=== PATIENT | female | born 1935 | race African-American/Black ===

== ENCOUNTER 2017-03-16 17:15 | Inpatient (IN) | payer MEDICARE ==
[~2017-03-16] VITALS: Ht 162.6 cm; Wt 47.6 kg
[2017-03-16 17:10] VITALS: BP_SYST 140; BP_DIAS 52; BP_DIAS 82
[~2017-03-16 17:15] MED LIST: ACET-2853 PO; AMLO5TAB4 PO; ASPI-1159 PO; CLON0.1T14 PO; CLOP75TA2 PO; DEXT15SY3 PO; DOCU-138 PO; IPRA3AMP IH; MAGN30OR PO; MULT-44 PO; MV W1TAB4 PO; OMEG-13 PO; OMEP20CA4 PO; OMEP20TA15 PO; ONDA4TAB5 PO; TRAM50TA73 PO
[2017-03-16] MEDS ORDERED: IPRATROPIUM/ALBUTEROL 0.5-3(2.5)MG/3ML NEB HHN PRN (18:45)
[2017-03-16] MEDS ORDERED: CLONIDINE 0.2MG TABLET PO PRN (18:45)
[2017-03-16 20:00] VITALS: BP 136/45
[2017-03-16] MEDS ORDERED: CLONIDINE 0.1MG TABLET PO PRN (20:15)
[2017-03-16] MEDS ORDERED: POLYVINYL ALCOHOL OPHTH DROPS 15ML BOTHEYE PRN (20:30)
[2017-03-16] MEDS: AMLODIPINE 5MG TABLET PO SCH (20:34)
[2017-03-16] MEDS: ATORVASTATIN CALCIUM 10MG TABLET PO SCH (20:34)
[2017-03-16] MEDS: ACETAMINOPHEN 650MG/20.3ML UDC PO PRN (20:34)
[2017-03-16] MEDS: GABAPENTIN 100MG CAPSULE PO SCH (20:34)
[2017-03-16] MEDS: MORPHINE SULFATE 2 MG/ML CPJ (NOT FOR IM USE) IV PRN (20:35)
[2017-03-16] MEDS: METRONIDAZOLE 500MG TABLET PO SCH (21:44)
[2017-03-16] MEDS: MINERAL OIL/PETROLATUM,WHITE CREAM 113GM JAR TOP PRN (21:45)
[2017-03-17] MEDS: MORPHINE SULFATE 2 MG/ML CPJ (NOT FOR IM USE) IV PRN ×3 (00:58→20:09)
[2017-03-17] MEDS: METRONIDAZOLE 500MG TABLET PO SCH ×3 (05:24→21:25)
[2017-03-17] MEDS: ONDANSETRON HCL 4MG TABLET PO PRN (05:28)
[2017-03-17 07:20] LABS: HEMATOCRIT 27.5 % (36.0-48.0); HEMOGLOBIN 9.3 g/dL (12.0-16.0); MEAN CORPUSCULAR HEMOGLOBIN 29.9 pg (28.0-32.0); MEAN CORPUSCULAR VOLUME 88.4 fL (81.0-99.0); PLATELET 200 x1000/uL (130-400); RED BLOOD CELL COUNT 3.12 mill/uL (4.2-5.4); RED CELL DISTRIBUTION WIDTH 13.4 % (11.6-14.6)
[2017-03-17 07:22] LABS: CARBON DIOXIDE 27 mEq/L (21-32); CHLORIDE 110 mEq/L (98-107)
[2017-03-17 08:00] VITALS: BP 122/46
[2017-03-17] MEDS ORDERED: LOPERAMIDE HCL 2MG CAPSULE PO PRN (08:45)
[2017-03-17] MEDS: FAMOTIDINE 20MG TABLET PO SCH (09:35)
[2017-03-17] MEDS: GABAPENTIN 100MG CAPSULE PO SCH ×2 (09:35→20:09)
[2017-03-17] MEDS: CLOPIDOGREL 75MG TABLET PO SCH (09:35)
[2017-03-17] MEDS: FERROUS SULFATE 325MG TABLET PO SCH (09:36)
[2017-03-17] MEDS: ASPIRIN 81MG TABLET PO SCH (09:36)
[2017-03-17] MEDS: LOSARTAN POTASSIUM 50 MG TABLET PO SCH (09:36)
[2017-03-17] MEDS: ENOXAPARIN 30MG/0.3ML SYR SUBCUT SCH (09:37)
[2017-03-17] MEDS: AMLODIPINE 5MG TABLET PO SCH ×2 (09:54→20:09)
[2017-03-17] MEDS: LEVOFLOXACIN 250MG TABLET PO SCH (11:42)
[2017-03-17] MEDS: MINERAL OIL/PETROLATUM,WHITE CREAM 113GM JAR TOP PRN (11:57)
[2017-03-17] MEDS: LACTULOSE 20G/30ML UDC PO SCH ×2 (13:34→17:00)
[2017-03-17] MEDS: DOCUSATE SODIUM 100MG CAPSULE PO SCH (17:00)
[2017-03-17 20:00] VITALS: BP 156/61
[2017-03-17] MEDS: ATORVASTATIN CALCIUM 10MG TABLET PO SCH (20:09)
[2017-03-17] MEDS: POLYETHYLENE GLYCOL 3350 (17GM) 1 DOSE PACK PO SCH (20:09)
[2017-03-17] MEDS: KETOROLAC TROMETHAMINE 0.5% OPHTH 3ML BOTHEYE SCH (22:51)
[2017-03-18] MEDS: MORPHINE SULFATE 2 MG/ML CPJ (NOT FOR IM USE) IV PRN (00:51)
[2017-03-18 02:25] VITALS: BP 158/52
[2017-03-18] MEDS ORDERED: MORPHINE SULFATE 4 MG/ML CPJ (NOT FOR IM USE) IV NR (02:45)
[2017-03-18] MEDS ORDERED: GABAPENTIN 100MG CAPSULE PO NR (02:45)
[2017-03-18 03:00] VITALS: BP 148/52
[2017-03-18 05:20] VITALS: BP 112/35
[2017-03-18] MEDS: METRONIDAZOLE 500MG TABLET PO SCH ×3 (05:24→21:33)
[2017-03-18 06:14] LABS: BASOPHILS % 1.5 % (0.0-2.0); EOSINOPHILS % 2.9 % (0.0-5.0); HEMATOCRIT. 25.7 % (36.0-48.0); HEMOGLOBIN. 8.7 g/dL (12.0-16.0); LYMPHOCYTES % 25.6 % (20.0-50.0); MEAN CORPUSCULAR HEMOGLOBIN 29.6 pg (28.0-32.0); MEAN CORPUSCULAR VOLUME 87.8 fL (81.0-99.0); MEAN PLATELET VOLUME 7.8 fl (7.4-10.4); MONOCYTES % 10.7 % (2.0-8.0); NEUTROPHILS % 59.3 % (40.0-76.0); PLATELET 205 x1000/uL (130-400); RED BLOOD CELL COUNT 2.93 mill/uL (4.2-5.4); RED CELL DISTRIBUTION WIDTH 13.3 % (11.6-14.6)
[2017-03-18 06:15] LABS: CHLORIDE 109 mEq/L (98-107)
[2017-03-18 06:31] LABS: CARBON DIOXIDE 25 mEq/L (21-32)
[2017-03-18 08:00] VITALS: BP 117/42
[2017-03-18] MEDS: DOCUSATE SODIUM 100MG CAPSULE PO SCH ×2 (09:00→17:00)
[2017-03-18] MEDS: ASPIRIN 81MG TABLET PO SCH (10:33)
[2017-03-18] MEDS: TRAMADOL 50MG TABLET PO PRN ×2 (10:34→22:33)
[2017-03-18] MEDS: LOSARTAN POTASSIUM 50 MG TABLET PO SCH (10:34)
[2017-03-18] MEDS: AMLODIPINE 5MG TABLET PO SCH ×2 (10:35→21:33)
[2017-03-18] MEDS: FERROUS SULFATE 325MG TABLET PO SCH (10:35)
[2017-03-18] MEDS: LEVOFLOXACIN 250MG TABLET PO SCH (10:35)
[2017-03-18] MEDS: KETOROLAC TROMETHAMINE 0.5% OPHTH 3ML BOTHEYE SCH ×2 (10:35→17:31)
[2017-03-18] MEDS: CLOPIDOGREL 75MG TABLET PO SCH (10:35)
[2017-03-18] MEDS: GABAPENTIN 100MG CAPSULE PO SCH ×2 (10:35→21:32)
[2017-03-18] MEDS: FAMOTIDINE 20MG TABLET PO SCH (10:35)
[2017-03-18] MEDS: ENOXAPARIN 30MG/0.3ML SYR SUBCUT SCH (10:40)
[2017-03-18] MEDS: LIDOCAINE 5% PATCH TOP SCH (10:40)
[2017-03-18] MEDS ORDERED: POTASSIUM CHLORIDE 20MEQ TABLET SR PO NR ×2 (11:06→14:00)
[2017-03-18 13:08] LABS: CREATINE KINASE 39 IU/L (26-192)
[2017-03-18] MEDS: MINERAL OIL/PETROLATUM,WHITE CREAM 113GM JAR TOP PRN (14:41)
[2017-03-18 20:00] VITALS: BP 131/53
[2017-03-18] MEDS: POLYETHYLENE GLYCOL 3350 (17GM) 1 DOSE PACK PO SCH (21:00)
[2017-03-18] MEDS: ATORVASTATIN CALCIUM 10MG TABLET PO SCH (21:33)
[2017-03-19 02:24] LABS: CLARITY URINE CLOUDY (CLEAR); COLOR URINE YELLOW (YELLOW); GLUCOSE URINE NEGATIVE (NEGATIVE); KETONES URINE NEGATIVE (NEGATIVE); LEUKOCYTE ESTERASE URINE 3+ (NEGATIVE); NITRITE URINE NEGATIVE (NEGATIVE); OCCULT BLOOD URINE TRACE (NEGATIVE); PROTEIN URINE NEGATIVE (NEGATIVE); UROBILINOGEN URINE 0.2 E.U./dL (0.2-1.0)
[2017-03-19] MEDS: METRONIDAZOLE 500MG TABLET PO SCH ×3 (05:38→22:36)
[2017-03-19 06:44] LABS: BASOPHILS % 0.7 % (0.0-2.0); HEMATOCRIT. 26.3 % (36.0-48.0); HEMOGLOBIN. 8.8 g/dL (12.0-16.0); LYMPHOCYTES % 16.9 % (20.0-50.0); MEAN CORPUSCULAR HEMOGLOBIN 29.5 pg (28.0-32.0); MEAN CORPUSCULAR VOLUME 87.8 fL (81.0-99.0); MEAN PLATELET VOLUME 7.8 fl (7.4-10.4); MONOCYTES % 10.5 % (2.0-8.0); NEUTROPHILS % 70.9 % (40.0-76.0); PLATELET 229 x1000/uL (130-400); RED BLOOD CELL COUNT 2.99 mill/uL (4.2-5.4); RED CELL DISTRIBUTION WIDTH 13.5 % (11.6-14.6)
[2017-03-19 07:03] LABS: FERRITIN 284 ng/mL (10-291)
[2017-03-19 08:00] VITALS: BP 132/50
[2017-03-19 08:00] LABS: PHOSPHORUS 3.7 mg/dL (2.5-4.9)
[2017-03-19] MEDS: DOCUSATE SODIUM 100MG CAPSULE PO SCH ×2 (09:00→17:00)
[2017-03-19] MEDS: CLOPIDOGREL 75MG TABLET PO SCH (09:04)
[2017-03-19] MEDS: ASPIRIN 81MG TABLET PO SCH (09:04)
[2017-03-19] MEDS: GABAPENTIN 100MG CAPSULE PO SCH ×2 (09:04→22:34)
[2017-03-19] MEDS: FAMOTIDINE 20MG TABLET PO SCH (09:04)
[2017-03-19] MEDS: LOSARTAN POTASSIUM 50 MG TABLET PO SCH (09:04)
[2017-03-19] MEDS: ONDANSETRON HCL 4MG TABLET PO PRN (09:05)
[2017-03-19] MEDS: FERROUS SULFATE 325MG TABLET PO SCH (09:05)
[2017-03-19] MEDS: KETOROLAC TROMETHAMINE 0.5% OPHTH 3ML BOTHEYE SCH ×2 (09:05→17:54)
[2017-03-19] MEDS: ENOXAPARIN 30MG/0.3ML SYR SUBCUT SCH (09:05)
[2017-03-19] MEDS: AMLODIPINE 5MG TABLET PO SCH ×2 (09:05→21:00)
[2017-03-19] MEDS: LIDOCAINE 5% PATCH TOP SCH (09:09)
[2017-03-19] MEDS: LEVOFLOXACIN 250MG TABLET PO SCH (10:54)
[2017-03-19 12:37] LABS: FOLIC ACID (FOLATE) SERUM > 20.00 ng/mL (>5.38); VITAMIN B12 SERUM 1238 pg/mL (211-911)
[2017-03-19] MEDS: OXYCODONE HCL 5MG TABLET PO SCH (17:54)
[2017-03-19 20:00] VITALS: BP 132/151
[2017-03-19] MEDS: POLYETHYLENE GLYCOL 3350 (17GM) 1 DOSE PACK PO SCH (21:00)
[2017-03-19] MEDS: TRAMADOL 50MG TABLET PO PRN (21:12)
[2017-03-19] MEDS: ATORVASTATIN CALCIUM 10MG TABLET PO SCH (22:33)
[2017-03-20] MEDS: DIPHENHYDRAMINE 25MG CAPSULE PO PRN ×2 (01:37→22:34)
[2017-03-20] MEDS: METRONIDAZOLE 500MG TABLET PO SCH ×3 (05:54→21:07)
[2017-03-20 08:00] VITALS: BP 158/55
[2017-03-20] MEDS: DOCUSATE SODIUM 100MG CAPSULE PO SCH ×2 (09:00→16:57)
[2017-03-20] MEDS: ENOXAPARIN 30MG/0.3ML SYR SUBCUT SCH (09:29)
[2017-03-20] MEDS: KETOROLAC TROMETHAMINE 0.5% OPHTH 3ML BOTHEYE SCH ×2 (09:29→16:57)
[2017-03-20] MEDS: CLOPIDOGREL 75MG TABLET PO SCH (09:30)
[2017-03-20] MEDS: GABAPENTIN 100MG CAPSULE PO SCH ×2 (09:30→21:08)
[2017-03-20] MEDS: LIDOCAINE 5% PATCH TOP SCH (09:30)
[2017-03-20] MEDS: FERROUS SULFATE 325MG TABLET PO SCH (09:30)
[2017-03-20] MEDS: LOSARTAN POTASSIUM 50 MG TABLET PO SCH (09:30)
[2017-03-20] MEDS: AMLODIPINE 5MG TABLET PO SCH ×2 (09:31→21:08)
[2017-03-20] MEDS: FAMOTIDINE 20MG TABLET PO SCH (09:31)
[2017-03-20] MEDS: OXYCODONE HCL 5MG TABLET PO SCH ×3 (09:32→16:53)
[2017-03-20] MEDS: ASPIRIN 81MG TABLET PO SCH (09:32)
[2017-03-20] MEDS: LEVOFLOXACIN 250MG TABLET PO SCH (11:43)
[2017-03-20] MEDS: TRAMADOL 50MG TABLET PO PRN (14:41)
[2017-03-20 20:00] VITALS: BP 150/59
[2017-03-20] MEDS: POLYETHYLENE GLYCOL 3350 (17GM) 1 DOSE PACK PO SCH (21:00)
[2017-03-20] MEDS: ATORVASTATIN CALCIUM 10MG TABLET PO SCH (21:08)
[2017-03-21] MEDS: TRAMADOL 50MG TABLET PO PRN ×2 (01:23→22:38)
[2017-03-21] MEDS: METRONIDAZOLE 500MG TABLET PO SCH ×3 (05:50→21:15)
[2017-03-21 08:00] VITALS: BP 138/51
[2017-03-21] MEDS: DOCUSATE SODIUM 100MG CAPSULE PO SCH ×2 (09:00→16:57)
[2017-03-21] MEDS: ASPIRIN 81MG TABLET PO SCH (09:05)
[2017-03-21] MEDS: GABAPENTIN 100MG CAPSULE PO SCH ×2 (09:05→21:15)
[2017-03-21] MEDS: CLOPIDOGREL 75MG TABLET PO SCH (09:06)
[2017-03-21] MEDS: AMLODIPINE 5MG TABLET PO SCH ×2 (09:06→21:16)
[2017-03-21] MEDS: FERROUS SULFATE 325MG TABLET PO SCH (09:06)
[2017-03-21] MEDS: FAMOTIDINE 20MG TABLET PO SCH (09:06)
[2017-03-21] MEDS: OXYCODONE HCL 5MG TABLET PO SCH ×3 (09:06→16:57)
[2017-03-21] MEDS: LOSARTAN POTASSIUM 50 MG TABLET PO SCH (09:06)
[2017-03-21] MEDS: KETOROLAC TROMETHAMINE 0.5% OPHTH 3ML BOTHEYE SCH ×2 (09:07→17:02)
[2017-03-21] MEDS: ENOXAPARIN 30MG/0.3ML SYR SUBCUT SCH (09:07)
[2017-03-21] MEDS: LIDOCAINE 5% PATCH TOP SCH (09:07)
[2017-03-21] MEDS: ONDANSETRON HCL 4MG TABLET PO PRN (09:12)
[2017-03-21] MEDS: LEVOFLOXACIN 250MG TABLET PO SCH (10:38)
[2017-03-21 20:00] VITALS: BP 153/57
[2017-03-21] MEDS: POLYETHYLENE GLYCOL 3350 (17GM) 1 DOSE PACK PO SCH (21:00)
[2017-03-21] MEDS ORDERED: SULFAMETHOXAZOLE/TRIMETHOPRIM 800/160MG TABLET PO SCH (21:00)
[2017-03-21] MEDS: ATORVASTATIN CALCIUM 10MG TABLET PO SCH (21:15)
[2017-03-21] MEDS ORDERED: VANCOMYCIN 750 MG PREMIX 150 ML IV NR (22:00)
[2017-03-22 00:25] LABS: CLARITY URINE CLEAR (CLEAR); COLOR URINE YELLOW (YELLOW); GLUCOSE URINE NEGATIVE (NEGATIVE); KETONES URINE NEGATIVE (NEGATIVE); LEUKOCYTE ESTERASE URINE 1+ (NEGATIVE); NITRITE URINE NEGATIVE (NEGATIVE); OCCULT BLOOD URINE NEGATIVE (NEGATIVE); PROTEIN URINE NEGATIVE (NEGATIVE); UROBILINOGEN URINE 0.2 E.U./dL (0.2-1.0)
[2017-03-22] MEDS: ACETAMINOPHEN 650MG/20.3ML UDC PO PRN (06:41)
[2017-03-22 06:46] LABS: BASOPHILS % 1.2 % (0.0-2.0); EOSINOPHILS % 2.8 % (0.0-5.0); HEMATOCRIT. 27.1 % (36.0-48.0); LYMPHOCYTES % 25.7 % (20.0-50.0); MEAN CORPUSCULAR HEMOGLOBIN 29.1 pg (28.0-32.0); MEAN CORPUSCULAR VOLUME 88.2 fL (81.0-99.0); MEAN PLATELET VOLUME 7.4 fl (7.4-10.4); MONOCYTES % 9.5 % (2.0-8.0); NEUTROPHILS % 60.8 % (40.0-76.0); PLATELET 267 x1000/uL (130-400); RED BLOOD CELL COUNT 3.07 mill/uL (4.2-5.4); RED CELL DISTRIBUTION WIDTH 13.6 % (11.6-14.6)
[2017-03-22 07:01] LABS: CARBON DIOXIDE 27 mEq/L (21-32); CHLORIDE 108 mEq/L (98-107)
[2017-03-22 07:22] VITALS: BP 138/54
[2017-03-22] MEDS: ENOXAPARIN 30MG/0.3ML SYR SUBCUT SCH (08:11)
[2017-03-22] MEDS: KETOROLAC TROMETHAMINE 0.5% OPHTH 3ML BOTHEYE SCH ×2 (08:11→17:07)
[2017-03-22] MEDS: CLOPIDOGREL 75MG TABLET PO SCH (08:11)
[2017-03-22] MEDS: GABAPENTIN 100MG CAPSULE PO SCH ×2 (08:12→21:28)
[2017-03-22] MEDS: ASPIRIN 81MG TABLET PO SCH (08:12)
[2017-03-22] MEDS: DOCUSATE SODIUM 100MG CAPSULE PO SCH ×2 (08:12→17:07)
[2017-03-22] MEDS: FAMOTIDINE 20MG TABLET PO SCH (08:12)
[2017-03-22] MEDS: FERROUS SULFATE 325MG TABLET PO SCH (08:12)
[2017-03-22] MEDS: AMLODIPINE 5MG TABLET PO SCH ×2 (08:13→21:28)
[2017-03-22] MEDS: OXYCODONE HCL 5MG TABLET PO SCH ×3 (08:14→17:08)
[2017-03-22] MEDS: LIDOCAINE 5% PATCH TOP SCH (08:49)
[2017-03-22 10:40] VITALS: BP 126/54
[2017-03-22] MEDS: LEVOFLOXACIN 250MG TABLET PO SCH (10:43)
[2017-03-22] MEDS: LOSARTAN POTASSIUM 50 MG TABLET PO SCH (10:43)
[2017-03-22 12:15] VITALS: BP 114/54
[2017-03-22] MEDS: LACTULOSE 20G/30ML UDC PO SCH ×3 (13:08→21:00)
[2017-03-22 13:12] LABS: 25-HYDROXY VITAMIN D3 28 ng/mL (.)
[2017-03-22] MEDS: VANCOMYCIN 750 MG PREMIX 150 ML IV SCH (13:16)
[2017-03-22] MEDS ORDERED: VANCOMYCIN 500 MG PREMIX 100 ML IV SCH (16:00)
[2017-03-22 17:00] VITALS: BP 123/36
[2017-03-22] MEDS ORDERED: DOCUSATE SODIUM 100MG CAPSULE PO SCH (17:00)
[2017-03-22 19:00] VITALS: BP 126/44
[2017-03-22] MEDS: POLYETHYLENE GLYCOL 3350 (17GM) 1 DOSE PACK PO SCH ×2 (21:00)
[2017-03-22] MEDS: ATORVASTATIN CALCIUM 10MG TABLET PO SCH (21:28)
[2017-03-22] MEDS: DIPHENHYDRAMINE 25MG CAPSULE PO PRN (22:39)
[2017-03-23] MEDS: ACETAMINOPHEN 650MG/20.3ML UDC PO PRN (05:00)
[2017-03-23] MEDS: TRAMADOL 50MG TABLET PO PRN (06:20)
[2017-03-23 08:00] VITALS: BP 130/49
[2017-03-23] MEDS: VANCOMYCIN 750 MG PREMIX 150 ML IV SCH (09:01)
[2017-03-23] MEDS: LOSARTAN POTASSIUM 50 MG TABLET PO SCH (09:09)
[2017-03-23] MEDS: DOCUSATE SODIUM 100MG CAPSULE PO SCH ×2 (09:09→17:00)
[2017-03-23] MEDS: KETOROLAC TROMETHAMINE 0.5% OPHTH 3ML BOTHEYE SCH ×2 (09:09→17:55)
[2017-03-23] MEDS: CLOPIDOGREL 75MG TABLET PO SCH (09:09)
[2017-03-23] MEDS: ENOXAPARIN 30MG/0.3ML SYR SUBCUT SCH (09:09)
[2017-03-23] MEDS: AMLODIPINE 5MG TABLET PO SCH ×2 (09:10→22:05)
[2017-03-23] MEDS: OXYCODONE HCL 5MG TABLET PO SCH ×3 (09:10→17:58)
[2017-03-23] MEDS: FERROUS SULFATE 325MG TABLET PO SCH (09:10)
[2017-03-23] MEDS: FAMOTIDINE 20MG TABLET PO SCH (09:10)
[2017-03-23] MEDS: GABAPENTIN 100MG CAPSULE PO SCH ×2 (09:10→22:05)
[2017-03-23] MEDS: ASPIRIN 81MG TABLET PO SCH (09:10)
[2017-03-23] MEDS: LIDOCAINE 5% PATCH TOP SCH (09:11)
[2017-03-23 13:10] VITALS: BP 140/60
[2017-03-23] MEDS ORDERED: ERGOCALCIFEROL 50000UNITS CAPSULE PO SCH (16:00)
[2017-03-23 17:30] VITALS: BP 121/80
[2017-03-23 20:00] VITALS: BP 135/43
[2017-03-23] MEDS: POLYETHYLENE GLYCOL 3350 (17GM) 1 DOSE PACK PO SCH ×2 (21:00)
[2017-03-23] MEDS: ATORVASTATIN CALCIUM 10MG TABLET PO SCH (22:04)
[2017-03-24] MEDS: ACETAMINOPHEN 650MG/20.3ML UDC PO PRN (02:05)
[2017-03-24] MEDS: VANCOMYCIN 750 MG PREMIX 150 ML IV SCH ×2 (02:05→20:49)
[2017-03-24 06:43] LABS: BASOPHILS % 1.2 % (0.0-2.0); EOSINOPHILS % 3.6 % (0.0-5.0); HEMOGLOBIN. 8.7 g/dL (12.0-16.0); LYMPHOCYTES % 27.6 % (20.0-50.0); MEAN CORPUSCULAR HEMOGLOBIN 29.5 pg (28.0-32.0); MEAN CORPUSCULAR VOLUME 88.1 fL (81.0-99.0); MEAN PLATELET VOLUME 7.6 fl (7.4-10.4); MONOCYTES % 10.1 % (2.0-8.0); NEUTROPHILS % 57.5 % (40.0-76.0); PLATELET 267 x1000/uL (130-400); RED BLOOD CELL COUNT 2.95 mill/uL (4.2-5.4); RED CELL DISTRIBUTION WIDTH 13.8 % (11.6-14.6)
[2017-03-24 08:00] VITALS: BP 151/57
[2017-03-24] MEDS: ASPIRIN 81MG TABLET PO SCH (08:06)
[2017-03-24] MEDS: OXYCODONE HCL 5MG TABLET PO SCH ×3 (08:08→15:53)
[2017-03-24] MEDS: GABAPENTIN 100MG CAPSULE PO SCH ×2 (08:08→20:55)
[2017-03-24] MEDS: FAMOTIDINE 20MG TABLET PO SCH (08:08)
[2017-03-24] MEDS: AMLODIPINE 5MG TABLET PO SCH ×2 (08:09→20:56)
[2017-03-24] MEDS: DOCUSATE SODIUM 100MG CAPSULE PO SCH ×2 (08:09→15:52)
[2017-03-24] MEDS: FERROUS SULFATE 325MG TABLET PO SCH (08:09)
[2017-03-24] MEDS: LACTOBACILLUS GG CAPSULE PO SCH (08:10)
[2017-03-24] MEDS: CLOPIDOGREL 75MG TABLET PO SCH (08:10)
[2017-03-24] MEDS: LOSARTAN POTASSIUM 50 MG TABLET PO SCH (08:10)
[2017-03-24] MEDS: ENOXAPARIN 30MG/0.3ML SYR SUBCUT SCH (08:17)
[2017-03-24] MEDS: LIDOCAINE 5% PATCH TOP SCH (08:17)
[2017-03-24] MEDS: KETOROLAC TROMETHAMINE 0.5% OPHTH 3ML BOTHEYE SCH ×2 (08:17→15:53)
[2017-03-24] MEDS: MINERAL OIL/PETROLATUM,WHITE CREAM 113GM JAR TOP PRN (10:30)
[2017-03-24 20:00] VITALS: BP 140/57
[2017-03-24] MEDS: ATORVASTATIN CALCIUM 10MG TABLET PO SCH (20:55)
[2017-03-24] MEDS: POLYETHYLENE GLYCOL 3350 (17GM) 1 DOSE PACK PO SCH ×2 (20:58)
[2017-03-24] MEDS: DIPHENHYDRAMINE 25MG CAPSULE PO PRN (22:39)
[2017-03-25 08:00] VITALS: BP 141/62
[2017-03-25] MEDS: FERROUS SULFATE 325MG TABLET PO SCH (08:37)
[2017-03-25] MEDS: GABAPENTIN 100MG CAPSULE PO SCH ×2 (08:37→21:27)
[2017-03-25] MEDS: AMLODIPINE 5MG TABLET PO SCH ×2 (08:38→21:29)
[2017-03-25] MEDS: ONDANSETRON HCL 4MG TABLET PO PRN (08:38)
[2017-03-25] MEDS: ASPIRIN 81MG TABLET PO SCH (08:38)
[2017-03-25] MEDS: LACTOBACILLUS GG CAPSULE PO SCH (08:38)
[2017-03-25] MEDS: LOSARTAN POTASSIUM 50 MG TABLET PO SCH (08:38)
[2017-03-25] MEDS: CLOPIDOGREL 75MG TABLET PO SCH (08:38)
[2017-03-25] MEDS: FAMOTIDINE 20MG TABLET PO SCH (08:38)
[2017-03-25] MEDS: ENOXAPARIN 30MG/0.3ML SYR SUBCUT SCH (08:39)
[2017-03-25] MEDS: KETOROLAC TROMETHAMINE 0.5% OPHTH 3ML BOTHEYE SCH ×2 (08:40→16:49)
[2017-03-25] MEDS: DOCUSATE SODIUM 100MG CAPSULE PO SCH ×2 (08:42→16:49)
[2017-03-25] MEDS: LIDOCAINE 5% PATCH TOP SCH (08:43)
[2017-03-25 20:00] VITALS: BP 142/58
[2017-03-25] MEDS: POLYETHYLENE GLYCOL 3350 (17GM) 1 DOSE PACK PO SCH ×2 (21:00)
[2017-03-25] MEDS: ATORVASTATIN CALCIUM 10MG TABLET PO SCH (21:28)
[2017-03-25] MEDS: TRAMADOL 50MG TABLET PO PRN (22:22)
[2017-03-26 06:04] LABS: BASOPHILS % 1.3 % (0.0-2.0); EOSINOPHILS % 2.9 % (0.0-5.0); HEMATOCRIT. 26.1 % (36.0-48.0); HEMOGLOBIN. 8.7 g/dL (12.0-16.0); LYMPHOCYTES % 30.7 % (20.0-50.0); MEAN CORPUSCULAR HEMOGLOBIN 29.4 pg (28.0-32.0); MEAN CORPUSCULAR VOLUME 87.9 fL (81.0-99.0); MEAN PLATELET VOLUME 7.4 fl (7.4-10.4); MONOCYTES % 9.2 % (2.0-8.0); NEUTROPHILS % 55.9 % (40.0-76.0); PLATELET 269 x1000/uL (130-400); RED BLOOD CELL COUNT 2.97 mill/uL (4.2-5.4)
[2017-03-26 06:58] LABS: CARBON DIOXIDE 30 mEq/L (21-32); CHLORIDE 109 mEq/L (98-107)
[2017-03-26 08:00] VITALS: BP 126/61
[2017-03-26] MEDS: DOCUSATE SODIUM 100MG CAPSULE PO SCH ×2 (09:00→16:18)
[2017-03-26] MEDS: CLOPIDOGREL 75MG TABLET PO SCH (09:35)
[2017-03-26] MEDS: FERROUS SULFATE 325MG TABLET PO SCH (09:35)
[2017-03-26] MEDS: LOSARTAN POTASSIUM 50 MG TABLET PO SCH (09:35)
[2017-03-26] MEDS: FAMOTIDINE 20MG TABLET PO SCH (09:35)
[2017-03-26] MEDS: ASPIRIN 81MG TABLET PO SCH (09:35)
[2017-03-26] MEDS: GABAPENTIN 100MG CAPSULE PO SCH ×2 (09:35→21:22)
[2017-03-26] MEDS: AMLODIPINE 5MG TABLET PO SCH ×2 (09:36→21:23)
[2017-03-26] MEDS: LACTOBACILLUS GG CAPSULE PO SCH (09:36)
[2017-03-26] MEDS: ENOXAPARIN 30MG/0.3ML SYR SUBCUT SCH (09:36)
[2017-03-26] MEDS: LIDOCAINE 5% PATCH TOP SCH (09:37)
[2017-03-26] MEDS: KETOROLAC TROMETHAMINE 0.5% OPHTH 3ML BOTHEYE SCH ×2 (09:37→16:21)
[2017-03-26] MEDS: VITAMINS A AND D OINT TUBE TOP SCH ×2 (12:08→16:21)
[2017-03-26] MEDS: TRAMADOL 50MG TABLET PO PRN (16:29)
[2017-03-26 20:00] VITALS: BP 127/50
[2017-03-26] MEDS: POLYETHYLENE GLYCOL 3350 (17GM) 1 DOSE PACK PO SCH ×2 (21:00)
[2017-03-26] MEDS: ATORVASTATIN CALCIUM 10MG TABLET PO SCH (21:21)
[2017-03-26] MEDS: DIPHENHYDRAMINE 25MG CAPSULE PO PRN (23:29)
[2017-03-27] MEDS: TRAMADOL 50MG TABLET PO PRN (03:31)
[2017-03-27 07:59] VITALS: BP 120/45
[2017-03-27] MEDS: DOCUSATE SODIUM 100MG CAPSULE PO SCH (09:00)
[2017-03-27] MEDS: LACTOBACILLUS GG CAPSULE PO SCH (10:02)
[2017-03-27] MEDS: FERROUS SULFATE 325MG TABLET PO SCH (10:02)
[2017-03-27] MEDS: LOSARTAN POTASSIUM 50 MG TABLET PO SCH (10:02)
[2017-03-27] MEDS: ENOXAPARIN 30MG/0.3ML SYR SUBCUT SCH (10:03)
[2017-03-27] MEDS: ASPIRIN 81MG TABLET PO SCH (10:03)
[2017-03-27] MEDS: AMLODIPINE 5MG TABLET PO SCH (10:03)
[2017-03-27] MEDS: GABAPENTIN 100MG CAPSULE PO SCH (10:03)
[2017-03-27] MEDS: CLOPIDOGREL 75MG TABLET PO SCH (10:03)
[2017-03-27] MEDS: FAMOTIDINE 20MG TABLET PO SCH (10:03)
[2017-03-27] MEDS: VITAMINS A AND D OINT TUBE TOP SCH (10:04)
[2017-03-27] MEDS: LIDOCAINE 5% PATCH TOP SCH (10:04)
[2017-03-27] MEDS: KETOROLAC TROMETHAMINE 0.5% OPHTH 3ML BOTHEYE SCH (10:04)
[2017-03-27 14:28] VITALS: BP 120/45
== END 2017-03-27 16:35 | disposition home health service (06) | DRG 552 ==
LOC: UNDOADMIN 17:44
PROVIDERS: ADMIT Physical Medicine & Rehabilitation Spinal Cord Injury Medicine; ATTEND Specialist
PROC: 0HBRXZZ Excision of Toe Nail, External Approach (ICD-10-PCS; principal; 2017-03-26)
PROC: 0HBRXZZ Excision of Toe Nail, External Approach (ICD-10-PCS; 2017-03-26)
PROC: 0HBRXZZ Excision of Toe Nail, External Approach (ICD-10-PCS; 2017-03-26)
PROC: 0HBRXZZ Excision of Toe Nail, External Approach (ICD-10-PCS; 2017-03-26)
PROC: 0HBRXZZ Excision of Toe Nail, External Approach (ICD-10-PCS; 2017-03-26)
PROC: 0HBRXZZ Excision of Toe Nail, External Approach (ICD-10-PCS; 2017-03-26)
PROC: 0HBRXZZ Excision of Toe Nail, External Approach (ICD-10-PCS; 2017-03-26)
PROC: 0HBRXZZ Excision of Toe Nail, External Approach (ICD-10-PCS; 2017-03-26)
DX: M48.06 Spinal stenosis, lumbar region (principal); E44.0 Moderate protein-calorie malnutrition; I69.351 Hemiplegia and hemiparesis following cerebral infarction affecting right dominant side; N13.30 Unspecified hydronephrosis; G62.9 Polyneuropathy, unspecified; M48.02 Spinal stenosis, cervical region; Z68.1 Body mass index [BMI] 19.9 or less, adult; N39.0 Urinary tract infection, site not specified; J44.9 Chronic obstructive pulmonary disease, unspecified; N32.89 Other specified disorders of bladder; M16.0 Bilateral primary osteoarthritis of hip; K52.9 Noninfective gastroenteritis and colitis, unspecified; I25.10 Atherosclerotic heart disease of native coronary artery without angina pectoris; R26.89 Other abnormalities of gait and mobility; I10 Essential (primary) hypertension; E78.5 Hyperlipidemia, unspecified; D12.2 Benign neoplasm of ascending colon; F41.9 Anxiety disorder, unspecified; M19.012 Primary osteoarthritis, left shoulder; M75.102 Unspecified rotator cuff tear or rupture of left shoulder, not specified as traumatic; M47.892 Other spondylosis, cervical region; M47.896 Other spondylosis, lumbar region; L60.3 Nail dystrophy; L60.0 Ingrowing nail; I08.0 Rheumatic disorders of both mitral and aortic valves; E78.00 Pure hypercholesterolemia, unspecified; E55.9 Vitamin D deficiency, unspecified; D63.8 Anemia in other chronic diseases classified elsewhere; B95.62 Methicillin resistant Staphylococcus aureus infection as the cause of diseases classified elsewhere; B35.3 Tinea pedis; K63.89 Other specified diseases of intestine; L57.0 Actinic keratosis; Z88.2 Allergy status to sulfonamides; Z95.5 Presence of coronary angioplasty implant and graft; Z79.899 Other long term (current) drug therapy
CPT/HCPCS: 36415; 70551; 73221; 80048; 80053; 80061; 81001; 82270; 82306; 82550; 82607; 82728; 82746; 83036; 83540; 83550; 83735; 84100; 84134; 84443; 84630; 85025; 85027; 87040; 87077; 87086; 92523; 93970; 97110; 97112; 97116; 97140; 97162; 97167; 97530; 97532; 97535; A6261; J1650; J2270; J3370; J7040; J7050; Q0162; Q0163

== ENCOUNTER 2017-04-01 07:20 | Emergency (ER) | payer MEDICARE ==
[~2017-04-01] VITALS: Ht 162.6 cm; Wt 59.0 kg
[~2017-04-01 07:20] MED LIST changes: -ACET-2853 PO; -CLON0.1T14 PO; +CLOP75TA16 PO; -CLOP75TA2 PO; -DEXT15SY3 PO; -IPRA3AMP IH; -MAGN30OR PO; -OMEP20CA4 PO; -OMEP20TA15 PO; -ONDA4TAB5 PO
[2017-04-01] MEDS ORDERED: SODIUM CHLORIDE 0.9% 500 ML IV ONE (08:56)
[2017-04-01] MEDS ORDERED: ONDANSETRON HCL 4MG/2ML VIAL IV STA (08:56)
[2017-04-01] MEDS ORDERED: MORPHINE SULFATE 4 MG/ML CPJ (NOT FOR IM USE) IV STA (08:56)
[2017-04-01 09:34] LABS: BASOPHILS % 1.2 % (0.0-2.0); EOSINOPHILS % 2.4 % (0.0-5.0); HEMATOCRIT. 28.5 % (36.0-48.0); HEMOGLOBIN. 9.5 g/dL (12.0-16.0); LYMPHOCYTES % 25.5 % (20.0-50.0); MEAN CORPUSCULAR HEMOGLOBIN 29.2 pg (28.0-32.0); MEAN PLATELET VOLUME 7.2 fl (7.4-10.4); MONOCYTES % 10.6 % (2.0-8.0); NEUTROPHILS % 60.3 % (40.0-76.0); PLATELET 268 x1000/uL (130-400); RED BLOOD CELL COUNT 3.23 mill/uL (4.2-5.4)
[2017-04-01 09:38] LABS: INR 1.1; PROTHROMBIN TIME 11.4 sec (9.4-11.6)
[2017-04-01 09:45] LABS: CARBON DIOXIDE 30 mEq/L (21-32); CHLORIDE 107 mEq/L (98-107)
[2017-04-01 10:09] LABS: CLARITY URINE CLEAR (CLEAR); COLOR URINE YELLOW (YELLOW); GLUCOSE URINE NEGATIVE (NEGATIVE); KETONES URINE NEGATIVE (NEGATIVE); LEUKOCYTE ESTERASE URINE 1+ (NEGATIVE); NITRITE URINE NEGATIVE (NEGATIVE); OCCULT BLOOD URINE NEGATIVE (NEGATIVE); PH URINE 5.5 (4.5-8.0); PROTEIN URINE NEGATIVE (NEGATIVE); SPECIFIC GRAVITY URINE 1.005 (1.005-1.030); UROBILINOGEN URINE 0.2 E.U./dL (0.2-1.0)
[2017-04-01] MEDS ORDERED: CEPHALEXIN 500MG CAPSULE PO ONE (12:45)
[2017-04-01] MEDS ORDERED: IOHEXOL-300 100 ML BOTTLE ONE (14:24)
[2017-04-01] MEDS ORDERED: SODIUM CHLORIDE 0.9% 10ML VIAL ONE (14:24)
[2017-04-01 15:02] VITALS: BP 129/65
[2017-04-05] MEDS ORDERED: PNEUMOCOCCAL 23-VAL P-SAC VAC 0.5 ML IM ONE (06:00)
== END 2017-04-01 15:13 | disposition home or self-care (01) ==
LOC: ER 09:57
DX: N39.0 Urinary tract infection, site not specified (principal); D64.9 Anemia, unspecified; I10 Essential (primary) hypertension; E78.00 Pure hypercholesterolemia, unspecified; Z79.82 Long term (current) use of aspirin; Z88.2 Allergy status to sulfonamides; Z90.49 Acquired absence of other specified parts of digestive tract; Z95.820 Peripheral vascular angioplasty status with implants and grafts
CPT/HCPCS: 36415; 74177; 80053; 81001; 83690; 85025; 85610; 96361; 96374; 96375; 99285; A4216; J2270; J2405; J7040; Q9967; J7030

== ENCOUNTER 2017-07-18 09:24 | Emergency (ER) | payer MEDICARE ==
[~2017-07-18] VITALS: Ht 162.6 cm; Wt 70.0 kg
[~2017-07-18 09:24] MED LIST changes: -TRAM50TA73 PO; +TRAM50TA94 PO
[2017-07-18] MEDS ORDERED: MAGNESIUM/ALUMINUM HYDROXIDE/SIMETHICONE 30ML UDC PO STA (10:12)
[2017-07-18] MEDS ORDERED: ONDANSETRON HCL 4MG/2ML VIAL IV STA (10:12)
[2017-07-18] MEDS ORDERED: SODIUM CHLORIDE 0.9% 1,000 ML IV ONE (10:12)
[2017-07-18] MEDS ORDERED: FAMOTIDINE 20MG/2ML VIAL IV STA (10:12)
[2017-07-18 10:37] LABS: BASOPHILS % 0.8 % (0.0-2.0); EOSINOPHILS % 1.1 % (0.0-5.0); HEMATOCRIT. 31.4 % (36.0-48.0); HEMOGLOBIN. 10.4 g/dL (12.0-16.0); LYMPHOCYTES % 25.3 % (20.0-50.0); MEAN CORPUSCULAR HEMOGLOBIN 29.5 pg (28.0-32.0); MEAN CORPUSCULAR VOLUME 88.8 fL (81.0-99.0); MEAN PLATELET VOLUME 7.2 fl (7.4-10.4); MONOCYTES % 8.8 % (2.0-8.0); PLATELET 248 x1000/uL (130-400); RED BLOOD CELL COUNT 3.54 mill/uL (4.2-5.4); RED CELL DISTRIBUTION WIDTH 13.3 % (11.6-14.6)
[2017-07-18 10:44] LABS: INR 1.2; PROTHROMBIN TIME 12.3 sec (9.4-11.6)
[2017-07-18 10:55] LABS: CARBON DIOXIDE 30 mEq/L (21-32); CHLORIDE 105 mEq/L (98-107); TROPONIN I < 0.02 ng/mL (0.00-0.04)
[2017-07-18] MEDS ORDERED: MORPHINE SULFATE 4 MG/ML CPJ (NOT FOR IM USE) IV ONE (11:45)
[2017-07-18 11:54] LABS: CLARITY URINE CLEAR (CLEAR); COLOR URINE YELLOW (YELLOW); KETONES URINE NEGATIVE (NEGATIVE); LEUKOCYTE ESTERASE URINE 1+ (NEGATIVE); NITRITE URINE NEGATIVE (NEGATIVE); OCCULT BLOOD URINE NEGATIVE (NEGATIVE); PROTEIN URINE NEGATIVE (NEGATIVE); SPECIFIC GRAVITY URINE 1.008 (1.005-1.030); UROBILINOGEN URINE 0.2 E.U./dL (0.2-1.0)
[2017-07-18] MEDS ORDERED: KETOROLAC 15MG/ML VIAL IV ONE (12:15)
[2017-07-18 12:22] VITALS: BP 183/70
== END 2017-07-18 13:45 | disposition home or self-care (01) ==
LOC: EDBEDREQ 10:21 → ER 10:35 → CANBEDREQ 14:54
DX: K29.70 Gastritis, unspecified, without bleeding (principal); N20.0 Calculus of kidney; N28.1 Cyst of kidney, acquired; I10 Essential (primary) hypertension; J44.9 Chronic obstructive pulmonary disease, unspecified; Z79.82 Long term (current) use of aspirin; Z90.49 Acquired absence of other specified parts of digestive tract; Z95.5 Presence of coronary angioplasty implant and graft; Z88.2 Allergy status to sulfonamides
CPT/HCPCS: 36415; 71010; 74176; 80053; 81001; 83605; 83690; 83880; 84484; 85025; 85610; 87040; 87086; 93005; 96361; 96374; 96375; 99285; J1885; J2270; J2405; J3490; J7030

== ENCOUNTER 2017-08-04 06:16 | Emergency (ER) | payer MEDICARE ==
[~2017-08-04] VITALS: Ht 162.6 cm; Wt 45.0 kg
[2017-08-04] MEDS ORDERED: HYDROCODONE/ACETAMINOPHEN 5/325MG TABLET PO ONE (08:15)
[2017-08-04 08:46] LABS: BASOPHILS % 1.2 % (0.0-2.0); EOSINOPHILS % 1.6 % (0.0-5.0); HEMATOCRIT. 28.4 % (36.0-48.0); HEMOGLOBIN. 9.4 g/dL (12.0-16.0); LYMPHOCYTES % 24.9 % (20.0-50.0); MEAN CORPUSCULAR HEMOGLOBIN 29.1 pg (28.0-32.0); MEAN CORPUSCULAR VOLUME 87.6 fL (81.0-99.0); MEAN PLATELET VOLUME 6.6 fl (7.4-10.4); MONOCYTES % 8.6 % (2.0-8.0); NEUTROPHILS % 63.7 % (40.0-76.0); PLATELET 213 x1000/uL (130-400); RED BLOOD CELL COUNT 3.25 mill/uL (4.2-5.4); RED CELL DISTRIBUTION WIDTH 14.1 % (11.6-14.6)
[2017-08-04 08:54] LABS: INR 1.1; PROTHROMBIN TIME 11.5 sec (9.4-11.6)
[2017-08-04 09:01] LABS: CARBON DIOXIDE 26 mEq/L (21-32); CHLORIDE 111 mEq/L (98-107)
[2017-08-04 09:35] LABS: CLARITY URINE CLOUDY (CLEAR); COLOR URINE YELLOW (YELLOW); KETONES URINE NEGATIVE (NEGATIVE); LEUKOCYTE ESTERASE URINE NEGATIVE (NEGATIVE); NITRITE URINE NEGATIVE (NEGATIVE); OCCULT BLOOD URINE NEGATIVE (NEGATIVE); PROTEIN URINE NEGATIVE (NEGATIVE); SPECIFIC GRAVITY URINE 1.005 (1.005-1.030); UROBILINOGEN URINE 0.2 E.U./dL (0.2-1.0)
[2017-08-04] MEDS ORDERED: KETOROLAC 60MG/2ML VIAL IM ONE (09:45)
[2017-08-04] MEDS ORDERED: VISCOUS LIDOCAINE 2% 15 ML UDC PO STA (09:59)
[2017-08-04] MEDS ORDERED: DICYCLOMINE 10 MG/5 ML ORAL SYR PO STA (09:59)
[2017-08-04] MEDS ORDERED: MAGNESIUM/ALUMINUM HYDROXIDE/SIMETHICONE 30ML UDC PO STA (09:59)
[2017-08-04 10:45] VITALS: BP 175/90
== END 2017-08-04 10:47 | disposition home or self-care (01) ==
LOC: ER 07:27
DX: D64.9 Anemia, unspecified (principal); R10.9 Unspecified abdominal pain; I10 Essential (primary) hypertension; I25.10 Atherosclerotic heart disease of native coronary artery without angina pectoris; Z87.442 Personal history of urinary calculi; Z79.82 Long term (current) use of aspirin; Z88.2 Allergy status to sulfonamides; Z90.49 Acquired absence of other specified parts of digestive tract
CPT/HCPCS: 36415; 80053; 81001; 83690; 85025; 85610; 96372; 99284; J1885

== ENCOUNTER 2017-10-06 08:14 | Emergency (ER) | payer MEDICARE ==
[~2017-10-06] VITALS: Ht 154.9 cm; Wt 48.0 kg
[2017-10-06] MEDS ORDERED: ONDANSETRON HCL 4MG/2ML VIAL IV STA (09:35)
[2017-10-06] MEDS ORDERED: MORPHINE SULFATE 4 MG/ML CPJ (NOT FOR IM USE) IV STA (09:35)
[2017-10-06 09:56] LABS: BASOPHILS % 0.9 % (0.0-2.0); EOSINOPHILS % 4.3 % (0.0-5.0); HEMATOCRIT. 29.5 % (36.0-48.0); HEMOGLOBIN. 9.9 g/dL (12.0-16.0); LYMPHOCYTES % 29.9 % (20.0-50.0); MEAN CORPUSCULAR HEMOGLOBIN 29.3 pg (28.0-32.0); MEAN CORPUSCULAR VOLUME 87.6 fL (81.0-99.0); MEAN PLATELET VOLUME 7.4 fl (7.4-10.4); MONOCYTES % 7.8 % (2.0-8.0); NEUTROPHILS % 57.1 % (40.0-76.0); PLATELET 232 x1000/uL (130-400); RED BLOOD CELL COUNT 3.37 mill/uL (4.2-5.4); RED CELL DISTRIBUTION WIDTH 14.4 % (11.6-14.6)
[2017-10-06 10:01] LABS: INR 1.1; PROTHROMBIN TIME 11.2 sec (9.4-11.6)
[2017-10-06 10:04] LABS: CHLORIDE 111 mEq/L (98-107)
[2017-10-06] MEDS ORDERED: TRAMADOL 50MG TABLET PO ONE (11:15)
[2017-10-06 11:33] LABS: CLARITY URINE CLEAR (CLEAR); COLOR URINE YELLOW (YELLOW); KETONES URINE NEGATIVE (NEGATIVE); LEUKOCYTE ESTERASE URINE 1+ (NEGATIVE); NITRITE URINE NEGATIVE (NEGATIVE); OCCULT BLOOD URINE NEGATIVE (NEGATIVE); PH URINE 6.5 (4.5-8.0); PROTEIN URINE NEGATIVE (NEGATIVE); SPECIFIC GRAVITY URINE 1.007 (1.005-1.030); UROBILINOGEN URINE 0.2 E.U./dL (0.2-1.0)
[2017-10-06] MEDS ORDERED: NITROFURANTOIN 100MG M/M CAPSULE PO ONE (12:00)
[2017-10-06 12:31] VITALS: BP 188/69
== END 2017-10-06 13:08 | disposition home or self-care (01) ==
LOC: ER 09:11
DX: N39.0 Urinary tract infection, site not specified (principal); D64.9 Anemia, unspecified; I25.10 Atherosclerotic heart disease of native coronary artery without angina pectoris; I10 Essential (primary) hypertension; Z88.2 Allergy status to sulfonamides; Z87.442 Personal history of urinary calculi; Z79.82 Long term (current) use of aspirin; Z79.01 Long term (current) use of anticoagulants
CPT/HCPCS: 36415; 76770; 80053; 81003; 83605; 83690; 85025; 85610; 87086; 93005; 96374; 96375; 99285; J2270; J2405

== ENCOUNTER 2018-05-30 16:16 | Inpatient (IN) | payer MEDICARE ==
[~2018-05-30] VITALS: Ht 160 cm; Wt 49.9 kg
[2018-05-30 18:30] LABS: BASOPHILS % 1.1 % (0.0-2.0); EOSINOPHILS % 0.7 % (0.0-5.0); HEMATOCRIT. 34.2 % (36.0-48.0); HEMOGLOBIN. 11.3 g/dL (12.0-16.0); LYMPHOCYTES % 15.9 % (20.0-50.0); MEAN CORPUSCULAR HEMOGLOBIN 29.3 pg (28.0-32.0); MEAN CORPUSCULAR VOLUME 88.6 fL (81.0-99.0); MEAN PLATELET VOLUME 7.3 fl (7.4-10.4); MONOCYTES % 7.3 % (2.0-8.0); PLATELET 252 x1000/uL (130-400); RED BLOOD CELL COUNT 3.87 mill/uL (4.2-5.4); RED CELL DISTRIBUTION WIDTH 13.9 % (11.6-14.6)
[2018-05-30 18:39] LABS: CHLORIDE 108 mEq/L (98-107)
[2018-05-30] MEDS ORDERED: MORPHINE SULFATE 4 MG/ML CPJ (NOT FOR IM USE) IV ONE (19:15)
[2018-05-30] MEDS ORDERED: ASPIRIN 325MG EC TABLET PO ONE (21:00)
[2018-05-30] MEDS ORDERED: MAGNESIUM/ALUMINUM HYDROXIDE/SIMETHICONE 30ML UDC PO PRN (21:30)
[2018-05-30] MEDS ORDERED: GUAIFENESIN 200MG/10ML SUGAR FREE UDC PO PRN (21:30)
[2018-05-30] MEDS ORDERED: ONDANSETRON HCL 4MG/2ML INJ IV PRN (21:30)
[2018-05-30] MEDS ORDERED: CLONIDINE 0.1MG TABLET PO PRN (21:30)
[2018-05-30] MEDS ORDERED: IPRATROPIUM/ALBUTEROL 0.5-3(2.5)MG/3ML NEB INH PRN (21:30)
[2018-05-30] MEDS ORDERED: DOCUSATE SODIUM 100MG CAPSULE PO PRN (21:30)
[2018-05-30] MEDS ORDERED: HYDROCODONE/ACETAMINOPHEN 5/325MG TABLET PO PRN (21:30)
[2018-05-30] MEDS ORDERED: ACETAMINOPHEN 325MG TABLET PO PRN (21:30)
[2018-05-30] MEDS: MORPHINE SULFATE 4 MG/ML CPJ (NOT FOR IM USE) IV PRN (22:28)
[2018-05-31] MEDS: MORPHINE SULFATE 4 MG/ML CPJ (NOT FOR IM USE) IV PRN ×4 (02:58→14:47)
[2018-05-31] MEDS: DEXT 5%/0.45% NACL 1000ML 1,000 ML IV SCH ×2 (05:31→22:54)
[2018-05-31 08:11] VITALS: BP 126/44
[2018-05-31] MEDS ORDERED: ENOXAPARIN 30MG/0.3ML SYR SUBCUT SCH (09:00)
[2018-05-31] MEDS: ASPIRIN 81MG EC TABLET PO SCH (10:12)
[2018-05-31] MEDS: AMLODIPINE 5MG TABLET PO SCH ×2 (10:12→22:51)
[2018-05-31 11:50] VITALS: BP 149/53
[2018-05-31 11:54] LABS: BASOPHILS % 1.3 % (0.0-2.0); EOSINOPHILS % 2.1 % (0.0-5.0); HEMATOCRIT. 31.3 % (36.0-48.0); HEMOGLOBIN. 10.3 g/dL (12.0-16.0); LYMPHOCYTES % 22.3 % (20.0-50.0); MEAN CORPUSCULAR HEMOGLOBIN 29.1 pg (28.0-32.0); MEAN CORPUSCULAR VOLUME 88.3 fL (81.0-99.0); MEAN PLATELET VOLUME 7.6 fl (7.4-10.4); MONOCYTES % 10.2 % (2.0-8.0); NEUTROPHILS % 64.1 % (40.0-76.0); PLATELET 241 x1000/uL (130-400); RED BLOOD CELL COUNT 3.54 mill/uL (4.2-5.4); RED CELL DISTRIBUTION WIDTH 13.8 % (11.6-14.6)
[2018-05-31 12:16] LABS: CHLORIDE 108 mEq/L (98-107)
[2018-05-31 12:27] LABS: CREATINE KINASE 116 IU/L (26-192)
[2018-05-31 12:28] LABS: HDL CHOLESTEROL 68 mg/dL (40-59); LDL CHOLESTEROL 141 mg/dL (5-100); PHOSPHORUS 2.5 mg/dL (2.5-4.9); T4 FREE 1.26 ng/dL (0.76-1.46)
[2018-05-31] MEDS: GABAPENTIN 100MG CAPSULE PO SCH ×3 (12:51→22:21)
[2018-05-31] MEDS: CLOPIDOGREL 75MG TABLET PO SCH (12:51)
[2018-05-31] MEDS: NITROGLYCERIN OINT 1GM/INCH UDPKT TD SCH ×2 (12:53→22:20)
[2018-05-31 15:49] VITALS: BP 98/75
[2018-05-31 16:11] LABS: CREATINE KINASE 122 IU/L (26-192)
[2018-05-31 20:14] VITALS: BP 140/51
[2018-05-31] MEDS: TRAMADOL 50MG TABLET PO PRN (22:21)
[2018-05-31] MEDS: ATORVASTATIN CALCIUM 10MG TABLET PO SCH (22:50)
[2018-05-31] MEDS: ZOLPIDEM TARTRATE 5MG TABLET PO PRN (22:51)
[2018-05-31 23:30] VITALS: BP 139/42
[2018-06-01] VITALS (13 sets, daily range): BP systolic 124–148; BP diastolic 53–76
[2018-06-01] MEDS: GABAPENTIN 100MG CAPSULE PO SCH ×3 (06:47→20:58)
[2018-06-01] MEDS: NITROGLYCERIN OINT 1GM/INCH UDPKT TD SCH ×3 (06:47→21:01)
[2018-06-01] MEDS: SODIUM CHLORIDE 0.45% 1,000 ML IV SCH ×2 (06:48→14:40)
[2018-06-01 07:40] LABS: BASOPHILS % 1.5 % (0.0-2.0); EOSINOPHILS % 5.5 % (0.0-5.0); HEMATOCRIT. 27.4 % (36.0-48.0); HEMOGLOBIN. 9.2 g/dL (12.0-16.0); LYMPHOCYTES % 29.4 % (20.0-50.0); MEAN CORPUSCULAR HEMOGLOBIN 29.7 pg (28.0-32.0); MEAN CORPUSCULAR VOLUME 88.6 fL (81.0-99.0); MEAN PLATELET VOLUME 7.7 fl (7.4-10.4); MONOCYTES % 12.6 % (2.0-8.0); PLATELET 197 x1000/uL (130-400); RED BLOOD CELL COUNT 3.09 mill/uL (4.2-5.4); RED CELL DISTRIBUTION WIDTH 13.9 % (11.6-14.6)
[2018-06-01] MEDS: ASPIRIN 81MG EC TABLET PO SCH (08:14)
[2018-06-01] MEDS: AMLODIPINE 5MG TABLET PO SCH ×2 (08:14→20:58)
[2018-06-01] MEDS: CLOPIDOGREL 75MG TABLET PO SCH (08:14)
[2018-06-01 08:21] LABS: CHLORIDE 108 mEq/L (98-107)
[2018-06-01 08:27] LABS: PHOSPHORUS 4.3 mg/dL (2.5-4.9)
[2018-06-01] MEDS ORDERED: LIDOCAINE HCL 1% 20ML VIAL (Pyxis) INJ ONE (10:38)
[2018-06-01] MEDS ORDERED: IODIXANOL 320MG/ML 100 ML BOTTLE IV ONE (10:38)
[2018-06-01] MEDS ORDERED: MIDAZOLAM HCL 2 MG/2 ML VIAL ONE (10:48)
[2018-06-01] MEDS ORDERED: FENTANYL CITRATE/PF 50MCG/ML 2ML VIAL ONE (10:48)
[2018-06-01] MEDS ORDERED: ONDANSETRON HCL 4MG/2ML INJ IV PRN (11:30)
[2018-06-01] MEDS ORDERED: ACETAMINOPHEN 325MG TABLET PO PRN (11:30)
[2018-06-01] MEDS ORDERED: ATROPINE SULFATE 1MG/10ML SYR IV PRN (11:30)
[2018-06-01] MEDS: TRAMADOL 50MG TABLET PO PRN ×2 (13:50→21:00)
[2018-06-01] MEDS ORDERED: HEPARIN SODIUM 1,000 UNIT/1ML VIAL IV ONE (14:17)
[2018-06-01] MEDS ORDERED: NITROGLYCERIN 50MCG/ML 10ML VIAL (CATH LAB) IV ONE (16:00)
[2018-06-01] MEDS ORDERED: NICARDIPINE 100MCG/ML 10ML VIAL (CATH LAB) IV ONE (16:00)
[2018-06-01] MEDS: ATORVASTATIN CALCIUM 10MG TABLET PO SCH (20:58)
[2018-06-01] MEDS: ZOLPIDEM TARTRATE 5MG TABLET PO PRN (20:58)
[2018-06-02] VITALS (12 sets, daily range): BP systolic 93–151; BP diastolic 46–64
[2018-06-02] MEDS: MORPHINE SULFATE 4 MG/ML CPJ (NOT FOR IM USE) IV PRN (00:29)
[2018-06-02] MEDS: GABAPENTIN 100MG CAPSULE PO SCH ×2 (06:16→16:53)
[2018-06-02] MEDS: NITROGLYCERIN OINT 1GM/INCH UDPKT TD SCH ×2 (06:16→16:53)
[2018-06-02 07:29] LABS: EOSINOPHILS % 4.6 % (0.0-5.0); HEMATOCRIT. 29.8 % (36.0-48.0); HEMOGLOBIN. 9.9 g/dL (12.0-16.0); LYMPHOCYTES % 23.8 % (20.0-50.0); MEAN CORPUSCULAR HEMOGLOBIN 29.6 pg (28.0-32.0); MEAN CORPUSCULAR VOLUME 89.4 fL (81.0-99.0); MEAN PLATELET VOLUME 7.8 fl (7.4-10.4); MONOCYTES % 10.9 % (2.0-8.0); NEUTROPHILS % 59.7 % (40.0-76.0); PLATELET 210 x1000/uL (130-400); RED BLOOD CELL COUNT 3.34 mill/uL (4.2-5.4); RED CELL DISTRIBUTION WIDTH 13.6 % (11.6-14.6)
[2018-06-02] MEDS: CLOPIDOGREL 75MG TABLET PO SCH (07:45)
[2018-06-02] MEDS: ASPIRIN 81MG EC TABLET PO SCH (07:46)
[2018-06-02] MEDS: AMLODIPINE 5MG TABLET PO SCH (07:46)
[2018-06-02] MEDS: SODIUM CHLORIDE 0.45% 1,000 ML IV SCH (07:47)
[2018-06-02 08:01] LABS: CHLORIDE 108 mEq/L (98-107)
[2018-06-02] MEDS: TRAMADOL 50MG TABLET PO PRN (09:57)
[2018-06-02 12:42] LABS: CLARITY URINE CLEAR (CLEAR); COLOR URINE YELLOW (YELLOW); KETONES URINE NEGATIVE (NEGATIVE); LEUKOCYTE ESTERASE URINE NEGATIVE (NEGATIVE); NITRITE URINE NEGATIVE (NEGATIVE); OCCULT BLOOD URINE NEGATIVE (NEGATIVE); PROTEIN URINE NEGATIVE (NEGATIVE); SPECIFIC GRAVITY URINE 1.002 (1.005-1.030); UROBILINOGEN URINE 0.2 E.U./dL (0.2-1.0)
== END 2018-06-02 18:11 | disposition home health service (06) | DRG 287 ==
LOC: ER 18:04 → 6WST 20:59 → EDBEDREQ 21:02 → EDBEDREQTM 21:02 → ENRESERV 05-31 02:29 → 3WST 06-01 11:58
PROVIDERS: ADMIT Family Medicine Adult Medicine; ATTEND Family Medicine Adult Medicine
PROC: 4A023N7 Measurement of Cardiac Sampling and Pressure, Left Heart, Percutaneous Approach (ICD-10-PCS; principal; 2018-06-01)
PROC: B2111ZZ Fluoroscopy of Multiple Coronary Arteries using Low Osmolar Contrast (ICD-10-PCS; 2018-06-01)
PROC: B2151ZZ Fluoroscopy of Left Heart using Low Osmolar Contrast (ICD-10-PCS; 2018-06-01)
DX: I16.9 Hypertensive crisis, unspecified (principal); N39.0 Urinary tract infection, site not specified; G62.9 Polyneuropathy, unspecified; D64.9 Anemia, unspecified; I49.3 Ventricular premature depolarization; K57.90 Diverticulosis of intestine, part unspecified, without perforation or abscess without bleeding; E78.00 Pure hypercholesterolemia, unspecified; E78.5 Hyperlipidemia, unspecified; F41.9 Anxiety disorder, unspecified; I11.9 Hypertensive heart disease without heart failure; M19.90 Unspecified osteoarthritis, unspecified site; Z82.49 Family history of ischemic heart disease and other diseases of the circulatory system; Z87.442 Personal history of urinary calculi; Z88.2 Allergy status to sulfonamides; Z95.5 Presence of coronary angioplasty implant and graft; Z79.82 Long term (current) use of aspirin; Z79.899 Other long term (current) drug therapy; Z90.49 Acquired absence of other specified parts of digestive tract
CPT/HCPCS: 36415; 71045; 80048; 80061; 82550; 83735; 83880; 84100; 84439; 84443; 84484; 85347; 93005; 93306; 93458; 93571; 93970; 99285; C1769; C1887; C1893; J1644; J1650; J2250; J2270; J3010; J3490; Q9967

== ENCOUNTER 2018-06-29 06:13 | Inpatient (IN) | payer MEDICARE ==
[~2018-06-29] VITALS: Ht 162.6 cm; Wt 49.0 kg
[~2018-06-29 06:13] MED LIST changes: -CLOP75TA16 PO
[2018-06-29] MEDS ORDERED: ASPIRIN 81MG TABLET PO ONE (07:00)
[2018-06-29 07:30] LABS: BASOPHILS % 2.2 % (0.0-2.0); EOSINOPHILS % 3.2 % (0.0-5.0); HEMOGLOBIN. 10.5 g/dL (12.0-16.0); LYMPHOCYTES % 27.8 % (20.0-50.0); MEAN CORPUSCULAR HEMOGLOBIN 29.5 pg (28.0-32.0); MEAN CORPUSCULAR VOLUME 87.3 fL (81.0-99.0); MEAN PLATELET VOLUME 7.3 fl (7.4-10.4); MONOCYTES % 11.9 % (2.0-8.0); NEUTROPHILS % 54.9 % (40.0-76.0); PLATELET 249 x1000/uL (130-400); RED BLOOD CELL COUNT 3.55 mill/uL (4.2-5.4); RED CELL DISTRIBUTION WIDTH 14.2 % (11.6-14.6)
[2018-06-29 07:33] LABS: CHLORIDE 107 mEq/L (98-107)
[2018-06-29] MEDS ORDERED: FENTANYL CITRATE/PF 50MCG/ML 2ML VIAL IV ONE (08:00)
[2018-06-29 10:20] LABS: CLARITY URINE CLEAR (CLEAR); COLOR URINE YELLOW (YELLOW); KETONES URINE NEGATIVE (NEGATIVE); LEUKOCYTE ESTERASE URINE 1+ (NEGATIVE); NITRITE URINE NEGATIVE (NEGATIVE); OCCULT BLOOD URINE NEGATIVE (NEGATIVE); PH URINE 7.5 (4.5-8.0); PROTEIN URINE 1+ (NEGATIVE); SPECIFIC GRAVITY URINE 1.003 (1.005-1.030); UROBILINOGEN URINE 0.2 E.U./dL (0.2-1.0)
[2018-06-29] MEDS: TRAMADOL 50MG TABLET PO PRN ×2 (14:23→20:23)
[2018-06-29 16:00] VITALS: BP 156/48
[2018-06-29] MEDS: ENOXAPARIN 40MG/0.4ML SYR SUBCUT SCH (18:11)
[2018-06-29] MEDS ORDERED: TRAMADOL HCL 50 MG PO PRN (19:30)
[2018-06-29] MEDS ORDERED: CLONIDINE 0.1MG TABLET PO PRN (19:30)
[2018-06-29] MEDS ORDERED: ONDANSETRON HCL 4MG/2ML INJ IV PRN (19:30)
[2018-06-29 20:00] VITALS: BP 148/51
[2018-06-29] MEDS: AMLODIPINE 5MG TABLET PO SCH (20:23)
[2018-06-29] MEDS: DOCUSATE SODIUM 100MG CAPSULE PO SCH (20:23)
[2018-06-29] MEDS ORDERED: ZOLP5TAB2 PO (20:58)
[2018-06-29] MEDS ORDERED: ZOLPIDEM TARTRATE 5MG TABLET PO PRN (21:00)
[2018-06-30] VITALS (7 sets, daily range): BP systolic 132–164; BP diastolic 49–57
[2018-06-30] MEDS: TRAMADOL 50MG TABLET PO PRN (01:44)
[2018-06-30 07:38] LABS: BASOPHILS % 1.9 % (0.0-2.0); EOSINOPHILS % 5.9 % (0.0-5.0); HEMATOCRIT. 28.8 % (36.0-48.0); HEMOGLOBIN. 9.5 g/dL (12.0-16.0); LYMPHOCYTES % 30.4 % (20.0-50.0); MEAN CORPUSCULAR HEMOGLOBIN 29.1 pg (28.0-32.0); MEAN CORPUSCULAR VOLUME 87.9 fL (81.0-99.0); MEAN PLATELET VOLUME 7.8 fl (7.4-10.4); MONOCYTES % 12.7 % (2.0-8.0); NEUTROPHILS % 49.1 % (40.0-76.0); PLATELET 242 x1000/uL (130-400); RED BLOOD CELL COUNT 3.28 mill/uL (4.2-5.4)
[2018-06-30 07:53] LABS: CHLORIDE 109 mEq/L (98-107)
[2018-06-30] MEDS ORDERED: MEDICATION NOT ON FORMULARY EA (Amlodipine Besylate (Norvasc) 5 MG) PO SCH (09:00)
[2018-06-30] MEDS ORDERED: ASPIRIN 81MG EC TABLET PO SCH (09:00)
[2018-06-30] MEDS: DOCUSATE SODIUM 100MG CAPSULE PO SCH ×2 (09:30→16:47)
[2018-06-30] MEDS: AMLODIPINE 5MG TABLET PO SCH (09:31)
[2018-06-30] MEDS ORDERED: HYDROCODONE/ACETAMINOPHEN 5/325MG TABLET PO NR (10:45)
[2018-06-30] MEDS: ENOXAPARIN 40MG/0.4ML SYR SUBCUT SCH (16:47)
== END 2018-06-30 19:00 | disposition home or self-care (01) | DRG 206 ==
LOC: ER 06:13 → 5WST 08:19 → EDBEDREQ 08:30 → ENRESERV 15:24
PROVIDERS: ADMIT Emergency Medicine; ATTEND Emergency Medicine
DX: M94.0 Chondrocostal junction syndrome [Tietze] (principal); Z68.1 Body mass index [BMI] 19.9 or less, adult; D72.819 Decreased white blood cell count, unspecified; G89.29 Other chronic pain; I11.9 Hypertensive heart disease without heart failure; I25.10 Atherosclerotic heart disease of native coronary artery without angina pectoris; J44.9 Chronic obstructive pulmonary disease, unspecified; R63.4 Abnormal weight loss; Z88.2 Allergy status to sulfonamides; Z79.899 Other long term (current) drug therapy; Z79.82 Long term (current) use of aspirin; Z95.5 Presence of coronary angioplasty implant and graft; Z90.49 Acquired absence of other specified parts of digestive tract; I25.2 Old myocardial infarction
CPT/HCPCS: 36415; 71045; 80048; 83880; 84484; 93005; 93970; 96374; 99285; J1650; J3010

== ENCOUNTER 2019-04-30 12:25 | Inpatient (IN) | payer MEDICARE ==
[~2019-04-30] VITALS: Ht 152.4 cm; Wt 46.3 kg
[~2019-04-30 12:25] MED LIST changes: -ASPI-1159 PO; +ASPI-1393 PO; +ZOLP5TAB2 PO
[2019-04-30] MEDS ORDERED: MORPHINE SULFATE 4 MG/ML CPJ (NOT FOR IM USE) IV ONE ×2 (14:00→15:45)
[2019-04-30 14:44] LABS: BASOPHILS % 0.9 % (0.0-2.0); EOSINOPHILS % 0.2 % (0.0-5.0); HEMATOCRIT. 33.9 % (36.0-48.0); HEMOGLOBIN. 11.4 g/dL (12.0-16.0); LYMPHOCYTES % 12.5 % (20.0-50.0); MEAN CORPUSCULAR HEMOGLOBIN 30.4 pg (28.0-32.0); MEAN CORPUSCULAR VOLUME 90.2 fL (81.0-99.0); MEAN PLATELET VOLUME 7.7 fl (7.4-10.4); MONOCYTES % 5.9 % (2.0-8.0); NEUTROPHILS % 80.5 % (40.0-76.0); PLATELET 254 x1000/uL (130-400); RED BLOOD CELL COUNT 3.76 mill/uL (4.2-5.4); RED CELL DISTRIBUTION WIDTH 13.6 % (11.6-14.6)
[2019-04-30 14:47] LABS: CHLORIDE 109 mEq/L (98-107)
[2019-04-30 14:50] LABS: PROTHROMBIN TIME 10.7 sec (9.6-11.0)
[2019-04-30 14:51] LABS: ETHANOL BLOOD < 10 mg/dL
[2019-04-30 14:54] LABS: LDL CHOLESTEROL 133 mg/dL (5-100)
[2019-04-30] MEDS ORDERED: SODIUM CHLORIDE 0.9% 1,000 ML IV ONE (15:44)
[2019-04-30] MEDS ORDERED: HYDRALAZINE 20MG/ML VIAL IV ONE (16:00)
[2019-04-30 16:08] LABS: CLARITY URINE CLEAR (CLEAR); COLOR URINE YELLOW (YELLOW); KETONES URINE TRACE (NEGATIVE); LEUKOCYTE ESTERASE URINE NEGATIVE (NEGATIVE); NITRITE URINE NEGATIVE (NEGATIVE); OCCULT BLOOD URINE NEGATIVE (NEGATIVE); PROTEIN URINE TRACE (NEGATIVE); SPECIFIC GRAVITY URINE 1.006 (1.005-1.030); UROBILINOGEN URINE 0.2 E.U./dL (0.2-1.0)
[2019-04-30] MEDS ORDERED: KETOROLAC 30MG/ML VIAL IM NR (18:45)
[2019-04-30] MEDS: TRAMADOL 50MG TABLET PO PRN (19:05)
[2019-04-30 21:30] VITALS: BP 177/60
[2019-04-30 21:50] VITALS: BP 181/58
[2019-04-30] MEDS ORDERED: CLONIDINE 0.1MG TABLET PO PRN (22:00)
[2019-04-30] MEDS: AMLODIPINE 5MG TABLET PO SCH (22:41)
[2019-04-30] MEDS: SODIUM CHLORIDE 0.9% INJ 3ML FLUSH IVF SCH (22:41)
[2019-04-30] MEDS: MORPHINE SULFATE 2 MG/ML CPJ (NOT FOR IM USE) IV PRN (22:43)
[2019-05-01] VITALS: BP 171/46
[2019-05-01] MEDS: ZOLPIDEM TARTRATE 5MG TABLET PO PRN ×2 (00:42→22:49)
[2019-05-01 04:00] VITALS: BP 125/53
[2019-05-01] MEDS: MORPHINE SULFATE 2 MG/ML CPJ (NOT FOR IM USE) IV PRN ×2 (04:02→20:55)
[2019-05-01] MEDS: SODIUM CHLORIDE 0.9% INJ 3ML FLUSH IVF SCH ×3 (05:28→21:37)
[2019-05-01 08:00] VITALS: BP 106/34
[2019-05-01] MEDS ORDERED: REGADENOSON 0.4 MG/5 ML IV ONE (08:15)
[2019-05-01] MEDS ORDERED: ENOXAPARIN 30MG/0.3ML SYR SUBCUT SCH (09:00)
[2019-05-01] MEDS: AMLODIPINE 5MG TABLET PO SCH ×2 (09:00→20:55)
[2019-05-01] MEDS: DEXT 5%/0.45% NACL 1000ML 1,000 ML IV SCH (09:02)
[2019-05-01] MEDS: ASPIRIN 81MG TABLET PO SCH (09:02)
[2019-05-01] MEDS: GABAPENTIN 100MG CAPSULE PO SCH ×2 (09:02→17:00)
[2019-05-01] MEDS: ENOXAPARIN 40MG/0.4ML SYR SUBCUT SCH (09:06)
[2019-05-01 12:00] VITALS: BP 112/38
[2019-05-01 16:00] VITALS: BP 124/43
[2019-05-01] MEDS: TRAMADOL 50MG TABLET PO PRN (17:48)
[2019-05-01 20:00] VITALS: BP 148/54
[2019-05-01] MEDS: SENNOSIDES/DOCUSATE SOD 8.6/50MG TABLET PO PRN (20:54)
[2019-05-02] VITALS: BP 149/81
[2019-05-02] MEDS: DEXT 5%/0.45% NACL 1000ML 1,000 ML IV SCH ×2 (02:30→19:35)
[2019-05-02 04:00] VITALS: BP 137/57
[2019-05-02] MEDS: MORPHINE SULFATE 2 MG/ML CPJ (NOT FOR IM USE) IV PRN ×4 (04:02→21:09)
[2019-05-02] MEDS: SODIUM CHLORIDE 0.9% INJ 3ML FLUSH IVF SCH ×3 (05:52→21:09)
[2019-05-02 09:02] LABS: BASOPHILS % 1.5 % (0.0-2.0); EOSINOPHILS % 4.5 % (0.0-5.0); HEMATOCRIT. 29.2 % (36.0-48.0); HEMOGLOBIN. 9.9 g/dL (12.0-16.0); LYMPHOCYTES % 30.5 % (20.0-50.0); MEAN CORPUSCULAR HEMOGLOBIN 30.4 pg (28.0-32.0); MEAN CORPUSCULAR VOLUME 89.9 fL (81.0-99.0); MEAN PLATELET VOLUME 7.6 fl (7.4-10.4); MONOCYTES % 11.7 % (2.0-8.0); NEUTROPHILS % 51.8 % (40.0-76.0); PLATELET 210 x1000/uL (130-400); RED BLOOD CELL COUNT 3.25 mill/uL (4.2-5.4); RED CELL DISTRIBUTION WIDTH 13.6 % (11.6-14.6)
[2019-05-02 09:10] LABS: CHLORIDE 111 mEq/L (98-107)
[2019-05-02] MEDS: ASPIRIN 81MG TABLET PO SCH (09:10)
[2019-05-02] MEDS: GABAPENTIN 100MG CAPSULE PO SCH ×2 (09:11→19:34)
[2019-05-02] MEDS: AMLODIPINE 5MG TABLET PO SCH ×2 (09:11→20:50)
[2019-05-02] MEDS: SENNOSIDES/DOCUSATE SOD 8.6/50MG TABLET PO PRN (09:11)
[2019-05-02] MEDS: ENOXAPARIN 40MG/0.4ML SYR SUBCUT SCH (09:12)
[2019-05-02 09:18] LABS: LDL CHOLESTEROL 115 mg/dL (5-100)
[2019-05-02 09:21] LABS: HDL CHOLESTEROL 60 mg/dL (40-59)
[2019-05-02] MEDS ORDERED: REGADENOSON 0.4 MG/5 ML IV ONE (10:34)
[2019-05-02 12:00] VITALS: BP 147/52
[2019-05-02 16:00] VITALS: BP 146/49
[2019-05-02 20:27] VITALS: BP 131/62
[2019-05-02] MEDS: ZOLPIDEM TARTRATE 5MG TABLET PO PRN (23:10)
[2019-05-03 00:38] VITALS: BP 126/46
[2019-05-03] MEDS: MORPHINE SULFATE 2 MG/ML CPJ (NOT FOR IM USE) IV PRN ×2 (04:20→08:18)
[2019-05-03 04:47] VITALS: BP 135/55
[2019-05-03] MEDS: SODIUM CHLORIDE 0.9% INJ 3ML FLUSH IVF SCH (05:48)
[2019-05-03] MEDS: ASPIRIN 81MG TABLET PO SCH (08:21)
[2019-05-03] MEDS: GABAPENTIN 100MG CAPSULE PO SCH (08:21)
[2019-05-03] MEDS: AMLODIPINE 5MG TABLET PO SCH (08:21)
[2019-05-03] MEDS ORDERED: ENOXAPARIN 30MG/0.3ML SYR SUBCUT SCH (09:00)
[2019-05-03 12:00] VITALS: BP 150/60
[2019-05-03 15:30] VITALS: BP 150/60
== END 2019-05-03 18:40 | disposition home or self-care (01) | DRG 206 ==
LOC: ER 12:25 → 6WST 16:00 → ENRESERV 20:20
PROVIDERS: ADMIT Specialist; ATTEND Specialist
DX: M94.0 Chondrocostal junction syndrome [Tietze] (principal); Z68.1 Body mass index [BMI] 19.9 or less, adult; E78.5 Hyperlipidemia, unspecified; E86.0 Dehydration; F41.9 Anxiety disorder, unspecified; I25.10 Atherosclerotic heart disease of native coronary artery without angina pectoris; E78.00 Pure hypercholesterolemia, unspecified; D64.9 Anemia, unspecified; F32.9 Major depressive disorder, single episode, unspecified; R63.4 Abnormal weight loss; R26.9 Unspecified abnormalities of gait and mobility; I11.9 Hypertensive heart disease without heart failure; I34.0 Nonrheumatic mitral (valve) insufficiency; J44.9 Chronic obstructive pulmonary disease, unspecified; Z79.82 Long term (current) use of aspirin; Z86.73 Personal history of transient ischemic attack (TIA), and cerebral infarction without residual deficits; Z95.5 Presence of coronary angioplasty implant and graft; Z88.2 Allergy status to sulfonamides; Z88.9 Allergy status to unspecified drugs, medicaments and biological substances; Z90.49 Acquired absence of other specified parts of digestive tract
CPT/HCPCS: 36415; 71045; 78452; 80048; 80061; 80320; 81003; 83721; 84484; 93005; 93017; 93306; 97162; 99285; A9500; C1893; J0360; J1650; J1885; J2270; J2785; J7030; G0480

== ENCOUNTER 2019-05-04 15:18 | Emergency (ER) | payer MEDICARE ==
[~2019-05-04] VITALS: Ht 162.6 cm; Wt 78.0 kg
[2019-05-04] MEDS ORDERED: MORPHINE SULFATE 4 MG/ML CPJ (NOT FOR IM USE) IV STA (16:31)
[2019-05-04] MEDS ORDERED: ONDANSETRON HCL 4MG/2ML INJ IV STA (16:31)
[2019-05-04] MEDS ORDERED: ASPIRIN 81MG TABLET PO ONE (16:45)
[2019-05-04 18:02] LABS: BASOPHILS % 1.2 % (0.0-2.0); EOSINOPHILS % 2.7 % (0.0-5.0); HEMATOCRIT. 31.1 % (36.0-48.0); HEMOGLOBIN. 10.3 g/dL (12.0-16.0); LYMPHOCYTES % 27.3 % (20.0-50.0); MEAN CORPUSCULAR HEMOGLOBIN 29.9 pg (28.0-32.0); MEAN PLATELET VOLUME 7.9 fl (7.4-10.4); NEUTROPHILS % 59.8 % (40.0-76.0); PLATELET 224 x1000/uL (130-400); RED BLOOD CELL COUNT 3.45 mill/uL (4.2-5.4); RED CELL DISTRIBUTION WIDTH 13.5 % (11.6-14.6)
[2019-05-04 18:03] LABS: CHLORIDE 109 mEq/L (98-107)
[2019-05-04 18:05] LABS: INR 1.1; PARTIAL THROMBOPLASTIN TIME 24.4 sec (23.4-31.0); PROTHROMBIN TIME 10.9 sec (9.6-11.0)
[2019-05-04 18:07] LABS: ETHANOL BLOOD < 10 mg/dL
[2019-05-04 19:08] LABS: CLARITY URINE CLEAR (CLEAR); COLOR URINE YELLOW (YELLOW); KETONES URINE NEGATIVE (NEGATIVE); LEUKOCYTE ESTERASE URINE NEGATIVE (NEGATIVE); NITRITE URINE NEGATIVE (NEGATIVE); OCCULT BLOOD URINE NEGATIVE (NEGATIVE); PH URINE 7.5 (4.5-8.0); PROTEIN URINE NEGATIVE (NEGATIVE); SPECIFIC GRAVITY URINE 1.003 (1.005-1.030); UROBILINOGEN URINE 0.2 E.U./dL (0.2-1.0)
[2019-05-04 19:22] LABS: OPIATES URINE SCREEN NEGATIVE (NEGATIVE)
[2019-05-04 19:23] LABS: *AMPHETAMINES SCREEN URINE NEGATIVE (NEGATIVE); *BARBITURATES SCREEN URINE NEGATIVE (NEGATIVE)
[2019-05-04 19:25] LABS: *BENZODIAZEPINES SCREEN URINE NEGATIVE (NEGATIVE); *COCAINE SCREEN URINE NEGATIVE (NEGATIVE); CANNABINOID URINE SCREEN NEGATIVE (NEGATIVE); METHADONE URINE SCREEN NEGATIVE (NEGATIVE); PHENCYCLIDINE URINE SCREEN NEGATIVE (NEGATIVE)
[2019-05-04] MEDS ORDERED: HYDROCODONE/ACETAMINOPHEN 5/325MG TABLET PO ONE (20:15)
[2019-05-04] MEDS ORDERED: TRAMADOL 50MG TABLET PO ONE (20:45)
[2019-05-04 21:00] VITALS: BP 152/79
== END 2019-05-04 21:15 | disposition home or self-care (01) ==
LOC: ER 15:18 → CANBEDREQ 20:14 → ER 21:15
DX: R07.89 Other chest pain (principal); I10 Essential (primary) hypertension; E11.9 Type 2 diabetes mellitus without complications; M79.605 Pain in left leg; M79.604 Pain in right leg
CPT/HCPCS: 36415; 71045; 80053; 80305; 80320; 81003; 83690; 83880; 84484; 85025; 85610; 85730; 93005; 93970; 96374; 96375; 99284; J2270; J2405; G0480

== ENCOUNTER 2019-08-30 16:21 | Inpatient (IN) | payer MEDICARE ==
[~2019-08-30] VITALS: Ht 162.6 cm; Wt 46.7 kg
[~2019-08-30 16:21] MED LIST changes: -ASPI-1393 PO; +ASPI-1497 PO
[2019-08-30] MEDS ORDERED: ONDANSETRON 4MG ODT PO STA (23:13)
[2019-08-30] MEDS ORDERED: MORPHINE SULFATE 2 MG/ML CPJ (NOT FOR IM USE) IV ONE (23:15)
[2019-08-31 01:32] LABS: BASOPHILS % 1.7 % (0.0-2.0); HEMATOCRIT. 34.8 % (36.0-48.0); HEMOGLOBIN. 11.5 g/dL (12.0-16.0); LYMPHOCYTES % 27.2 % (20.0-50.0); MEAN CORPUSCULAR HEMOGLOBIN 29.3 pg (28.0-32.0); MEAN CORPUSCULAR VOLUME 88.6 fL (81.0-99.0); MEAN PLATELET VOLUME 7.7 fl (7.4-10.4); MONOCYTES % 8.9 % (2.0-8.0); NEUTROPHILS % 56.2 % (40.0-76.0); PLATELET 214 x1000/uL (130-400); RED BLOOD CELL COUNT 3.93 mill/uL (4.2-5.4)
[2019-08-31 01:43] LABS: CHLORIDE 110 mEq/L (98-107)
[2019-08-31 01:46] LABS: PROTHROMBIN TIME 10.8 sec (9.6-11.0)
[2019-08-31] MEDS: TRAMADOL 50MG TABLET PO PRN ×3 (05:42→22:45)
[2019-08-31] MEDS ORDERED: MECLIZINE 25MG TABLET PO PRN (05:45)
[2019-08-31] MEDS ORDERED: ONDANSETRON HCL 4MG/2ML INJ IV PRN (12:45)
[2019-08-31] MEDS ORDERED: ACETAMINOPHEN 325MG TABLET PO PRN (12:45)
[2019-08-31] MEDS: SODIUM CHLORIDE 0.9% 1,000 ML IV SCH (15:54)
[2019-08-31] MEDS: MECLIZINE 25MG TABLET PO PRN (17:10)
[2019-08-31 20:45] VITALS: BP 158/54
[2019-08-31] MEDS ORDERED: PENT400T16 PO (22:38)
[2019-08-31] MEDS ORDERED: LORA-250 PO (22:39)
[2019-09-01] VITALS: BP 142/56
[2019-09-01 04:00] VITALS: BP 147/52
[2019-09-01] MEDS: SODIUM CHLORIDE 0.9% 1,000 ML IV SCH (04:17)
[2019-09-01] MEDS: TRAMADOL 50MG TABLET PO PRN ×4 (05:10→23:15)
[2019-09-01 06:16] LABS: BASOPHILS % 0.3 % (0.0-2.0); EOSINOPHILS % 12.1 % (0.0-5.0); HEMATOCRIT. 31.4 % (36.0-48.0); HEMOGLOBIN. 10.5 g/dL (12.0-16.0); LYMPHOCYTES % 31.7 % (20.0-50.0); MEAN CORPUSCULAR HEMOGLOBIN 30.1 pg (28.0-32.0); MEAN CORPUSCULAR VOLUME 89.7 fL (81.0-99.0); MONOCYTES % 9.9 % (2.0-8.0); PLATELET 196 x1000/uL (130-400); RED CELL DISTRIBUTION WIDTH 14.1 % (11.6-14.6)
[2019-09-01 06:43] LABS: CHLORIDE 109 mEq/L (98-107)
[2019-09-01 08:00] VITALS: BP 119/56
[2019-09-01] MEDS: HEPARIN 5000 UNITS/ML VIAL SUBCUT SCH ×2 (08:47→23:25)
[2019-09-01 12:00] VITALS: BP_SYST 139; BP_SYST 141; BP_SYST 155; BP_DIAS 50; BP_DIAS 52; BP_DIAS 57
[2019-09-01] MEDS ORDERED: LORAZEPAM 1MG TABLET PO PRN (13:45)
[2019-09-01] MEDS ORDERED: DOCUSATE SODIUM 100MG CAPSULE PO PRN (13:45)
[2019-09-01] MEDS: ASPIRIN 81MG EC TABLET PO SCH (14:58)
[2019-09-01] MEDS: PENTOXIFYLLINE 400MG TABLET PO SCH ×2 (14:59→23:25)
[2019-09-01] MEDS: MECLIZINE 25MG TABLET PO PRN (14:59)
[2019-09-01 16:00] VITALS: BP 158/58
[2019-09-01 20:00] VITALS: BP 168/54
[2019-09-02] VITALS: BP 134/45
[2019-09-02 04:00] VITALS: BP 129/49
[2019-09-02] MEDS: PENTOXIFYLLINE 400MG TABLET PO SCH ×2 (06:50→10:43)
[2019-09-02 08:57] VITALS: BP 135/62
[2019-09-02] MEDS: HEPARIN 5000 UNITS/ML VIAL SUBCUT SCH (10:42)
[2019-09-02] MEDS: ASPIRIN 81MG EC TABLET PO SCH (10:43)
[2019-09-02 12:00] VITALS: BP 135/56
[2019-09-02] MEDS ORDERED: CLONIDINE 0.3MG TABLET PO PRN (12:15)
[2019-09-02] MEDS: TRAMADOL 50MG TABLET PO PRN (13:12)
[2019-09-02 14:29] VITALS: BP 136/65
== END 2019-09-02 15:20 | disposition home or self-care (01) | DRG 312 ==
LOC: ER 16:36 → 7WST 08-31 03:12 → EDBEDREQ 08-31 03:20 → EDBEDREQTM 08-31 03:20 → EDBEDREQDT 08-31 03:20 → ENRESERV 08-31 19:05
PROVIDERS: ADMIT Specialist; ATTEND Specialist
DX: R55 Syncope and collapse (principal); H81.10 Benign paroxysmal vertigo, unspecified ear; D64.9 Anemia, unspecified; E78.00 Pure hypercholesterolemia, unspecified; F32.9 Major depressive disorder, single episode, unspecified; F41.9 Anxiety disorder, unspecified; I25.10 Atherosclerotic heart disease of native coronary artery without angina pectoris; J44.9 Chronic obstructive pulmonary disease, unspecified; I11.9 Hypertensive heart disease without heart failure; M19.90 Unspecified osteoarthritis, unspecified site; M48.02 Spinal stenosis, cervical region; M48.061 Spinal stenosis, lumbar region without neurogenic claudication; Z79.899 Other long term (current) drug therapy; Z86.73 Personal history of transient ischemic attack (TIA), and cerebral infarction without residual deficits; Z95.5 Presence of coronary angioplasty implant and graft; Z88.2 Allergy status to sulfonamides; Z79.82 Long term (current) use of aspirin
CPT/HCPCS: 36415; 70544; 70551; 71045; 72141; 80053; 82962; 83735; 84484; 85025; 93005; 93880; 96361; 96374; 97162; 97166; 99284; 99285; J1644; J2270; J8597; Q0162

== ENCOUNTER 2020-08-05 17:49 | Inpatient (IN) | payer MEDICARE ==
[~2020-08-05] VITALS: Ht 162.6 cm; Wt 50.0 kg
[~2020-08-05 17:49] MED LIST changes: +AMLO10TA80 PO; +ASPI-1406 PO; +CITA10TA16 PO; +DOCU-150 PO; +GABA-529 PO; +GABA-532 PO; +LORA-250 PO; +MOM PO; +PENT400T16 PO; +SENN-3 PO; +TETR15DR17 OP; +TRAM50TA3 MT; +TRAM50TA3 PO; -ZOLP5TAB2 PO
[2020-08-05 20:37] LABS: BASOPHILS % 1.1 % (0.0-2.0); EOSINOPHILS % 1.2 % (0.0-5.0); HEMATOCRIT. 32.4 % (36.0-48.0); HEMOGLOBIN. 10.8 g/dL (12.0-16.0); LYMPHOCYTES % 19.7 % (20.0-50.0); MEAN CORPUSCULAR HEMOGLOBIN 29.6 pg (28.0-32.0); MEAN CORPUSCULAR VOLUME 88.3 fL (81.0-99.0); MEAN PLATELET VOLUME 7.3 fl (7.4-10.4); MONOCYTES % 7.3 % (2.0-8.0); NEUTROPHILS % 70.7 % (40.0-76.0); PLATELET 300 x1000/uL (130-400); RED BLOOD CELL COUNT 3.66 mill/uL (4.2-5.4); RED CELL DISTRIBUTION WIDTH 13.4 % (11.6-14.6)
[2020-08-05 20:43] LABS: CHLORIDE 105 mEq/L (98-107)
[2020-08-05 20:53] LABS: INR 1.1; PROTHROMBIN TIME 11.3 sec (9.6-11.0)
[2020-08-05] MEDS ORDERED: SODIUM CHLORIDE 0.9% 250 ML IV ONE (21:00)
[2020-08-05] MEDS ORDERED: MORPHINE SULFATE 2 MG/ML CPJ (NOT FOR IM USE) IV NR (21:15)
[2020-08-05] MEDS ORDERED: ACETAMINOPHEN 325MG TABLET PO NR (21:15)
[2020-08-05] MEDS ORDERED: ASPIRIN 81MG TABLET PO ONE (21:45)
[2020-08-05] MEDS ORDERED: MORPHINE SULFATE 2 MG/ML CPJ (NOT FOR IM USE) IV ONE (22:30)
[2020-08-06 04:56] LABS: CLARITY URINE CLEAR (CLEAR); COLOR URINE YELLOW (YELLOW); KETONES URINE TRACE (NEGATIVE); LEUKOCYTE ESTERASE URINE NEGATIVE (NEGATIVE); NITRITE URINE NEGATIVE (NEGATIVE); OCCULT BLOOD URINE NEGATIVE (NEGATIVE); PH URINE 7.5 (4.5-8.0); PROTEIN URINE NEGATIVE (NEGATIVE); SPECIFIC GRAVITY URINE 1.007 (1.005-1.030); UROBILINOGEN URINE 0.2 E.U./dL (0.2-1.0)
[2020-08-06] MEDS ORDERED: TRAMADOL 50MG TABLET PO PRN ×2 (05:45→12:00)
[2020-08-06] MEDS: MORPHINE SULFATE 2 MG/ML CPJ (NOT FOR IM USE) IV PRN ×3 (05:54→23:30)
[2020-08-06] MEDS ORDERED: SENNOSIDES/DOCUSATE SOD 8.6/50MG TABLET PO PRN (12:00)
[2020-08-06] MEDS ORDERED: MAGNESIUM HYDROXIDE 400MG/5ML 30ML UDC PO PRN (12:00)
[2020-08-06] MEDS ORDERED: TRAZODONE HCL 50MG TABLET PO PRN (12:15)
[2020-08-06] MEDS ORDERED: ACETAMINOPHEN 325MG TABLET PO PRN (12:15)
[2020-08-06] MEDS ORDERED: ONDANSETRON HCL 4MG/2ML INJ IV PRN (12:15)
[2020-08-06] MEDS: AMLODIPINE 10MG TABLET PO SCH (13:35)
[2020-08-06] MEDS: ASPIRIN 81MG EC TABLET PO SCH (13:35)
[2020-08-06 15:55] LABS: BASOPHILS % 1.2 % (0.0-2.0); EOSINOPHILS % 4.3 % (0.0-5.0); HEMATOCRIT. 32.9 % (36.0-48.0); HEMOGLOBIN. 10.8 g/dL (12.0-16.0); LYMPHOCYTES % 27.8 % (20.0-50.0); MEAN CORPUSCULAR HEMOGLOBIN 29.5 pg (28.0-32.0); MEAN CORPUSCULAR VOLUME 89.9 fL (81.0-99.0); MEAN PLATELET VOLUME 7.3 fl (7.4-10.4); MONOCYTES % 10.5 % (2.0-8.0); NEUTROPHILS % 56.2 % (40.0-76.0); PLATELET 268 x1000/uL (130-400); RED BLOOD CELL COUNT 3.66 mill/uL (4.2-5.4); RED CELL DISTRIBUTION WIDTH 13.6 % (11.6-14.6)
[2020-08-06] MEDS: GABAPENTIN 100MG CAPSULE PO SCH ×2 (15:58→22:00)
[2020-08-06 16:03] LABS: CHLORIDE 107 mEq/L (98-107)
[2020-08-06] MEDS: POLYVINYL ALCOHOL OPHTH DROPS 15ML BOTHEYE SCH (18:00)
[2020-08-06] MEDS: ATORVASTATIN CALCIUM 10MG TABLET PO SCH (21:00)
[2020-08-06] MEDS: HEPARIN 5000 UNITS/ML VIAL SUBCUT SCH (21:00)
[2020-08-07] MEDS: ZOLPIDEM TARTRATE 5MG TABLET PO PRN ×2 (03:30→20:51)
[2020-08-07 06:12] LABS: BASOPHILS % 1.1 % (0.0-2.0); EOSINOPHILS % 8.1 % (0.0-5.0); HEMATOCRIT. 30.3 % (36.0-48.0); HEMOGLOBIN. 10.1 g/dL (12.0-16.0); LYMPHOCYTES % 26.4 % (20.0-50.0); MEAN CORPUSCULAR VOLUME 89.9 fL (81.0-99.0); MEAN PLATELET VOLUME 7.2 fl (7.4-10.4); MONOCYTES % 9.5 % (2.0-8.0); NEUTROPHILS % 54.9 % (40.0-76.0); PLATELET 245 x1000/uL (130-400); RED BLOOD CELL COUNT 3.37 mill/uL (4.2-5.4); RED CELL DISTRIBUTION WIDTH 13.6 % (11.6-14.6)
[2020-08-07 06:39] LABS: CHLORIDE 108 mEq/L (98-107)
[2020-08-07 06:49] LABS: LDL CHOLESTEROL 119 mg/dL (5-100)
[2020-08-07 06:50] LABS: HDL CHOLESTEROL 73 mg/dL (40-59)
[2020-08-07] MEDS: POLYVINYL ALCOHOL OPHTH DROPS 15ML BOTHEYE SCH ×4 (07:26→23:11)
[2020-08-07] MEDS: HEPARIN 5000 UNITS/ML VIAL SUBCUT SCH ×2 (09:00→20:50)
[2020-08-07] MEDS: ASPIRIN 81MG EC TABLET PO SCH (12:00)
[2020-08-07] MEDS: AMLODIPINE 10MG TABLET PO SCH (12:00)
[2020-08-07] MEDS: GABAPENTIN 100MG CAPSULE PO SCH ×3 (12:00→20:51)
[2020-08-07] MEDS: METOPROLOL TARTRATE 25MG TABLET PO SCH (12:00)
[2020-08-07] MEDS: MORPHINE SULFATE 2 MG/ML CPJ (NOT FOR IM USE) IV PRN ×3 (12:32→23:18)
[2020-08-07 16:00] VITALS: BP 152/52
[2020-08-07 16:56] VITALS: BP 147/54
[2020-08-07 18:00] VITALS: BP 129/46
[2020-08-07 20:00] VITALS: BP 111/68
[2020-08-07] MEDS: ATORVASTATIN CALCIUM 10MG TABLET PO SCH (20:51)
[2020-08-07 22:00] VITALS: BP 135/42
[2020-08-08] VITALS (13 sets, daily range): BP systolic 103–146; BP diastolic 32–60
[2020-08-08] MEDS: GABAPENTIN 100MG CAPSULE PO SCH ×3 (05:41→21:53)
[2020-08-08] MEDS: MORPHINE SULFATE 2 MG/ML CPJ (NOT FOR IM USE) IV PRN ×3 (05:44→20:18)
[2020-08-08] MEDS: POLYVINYL ALCOHOL OPHTH DROPS 15ML BOTHEYE SCH ×3 (05:45→17:45)
[2020-08-08 07:02] LABS: CHLORIDE 108 mEq/L (98-107)
[2020-08-08 07:04] LABS: BASOPHILS % 0.9 % (0.0-2.0); EOSINOPHILS % 8.7 % (0.0-5.0); HEMATOCRIT. 29.6 % (36.0-48.0); HEMOGLOBIN. 9.9 g/dL (12.0-16.0); LYMPHOCYTES % 35.1 % (20.0-50.0); MEAN PLATELET VOLUME 8.9 fl (7.4-10.4); MONOCYTES % 10.5 % (2.0-8.0); NEUTROPHILS % 44.8 % (40.0-76.0); PLATELET 195 x1000/uL (130-400); RED BLOOD CELL COUNT 3.29 mill/uL (4.2-5.4); RED CELL DISTRIBUTION WIDTH 13.4 % (11.6-14.6)
[2020-08-08] MEDS: AMLODIPINE 10MG TABLET PO SCH (07:45)
[2020-08-08] MEDS: METOPROLOL TARTRATE 25MG TABLET PO SCH (07:46)
[2020-08-08] MEDS: ASPIRIN 81MG EC TABLET PO SCH (07:46)
[2020-08-08] MEDS ORDERED: LIDOCAINE HCL 1% 20ML VIAL (Pyxis) INJ ONE (07:51)
[2020-08-08] MEDS ORDERED: IODIXANOL 320MG/ML 100 ML BOTTLE IV ONE (07:57)
[2020-08-08] MEDS ORDERED: IOHEXOL-300 100 ML BOTTLE ONE (07:57)
[2020-08-08] MEDS ORDERED: HEPARIN SODIUM 1,000 UNIT/1ML VIAL IV ONE (08:00)
[2020-08-08] MEDS ORDERED: NICARDIPINE 100MCG/ML 10ML VIAL (CATH LAB) IV ONE (08:00)
[2020-08-08] MEDS ORDERED: NITROGLYCERIN 50MCG/ML 10ML VIAL (CATH LAB) IV ONE (08:00)
[2020-08-08] MEDS ORDERED: PHENYLEPHRINE 100MCG/ML 10ML VIAL (CATH LAB) IV ONE (08:00)
[2020-08-08] MEDS: HEPARIN 5000 UNITS/ML VIAL SUBCUT SCH ×2 (09:00→20:17)
[2020-08-08] MEDS ORDERED: MIDAZOLAM HCL 2 MG/2 ML VIAL ONE (09:18)
[2020-08-08] MEDS ORDERED: FENTANYL CITRATE/PF 50MCG/ML 2ML VIAL ONE (09:18)
[2020-08-08] MEDS ORDERED: CLOPIDOGREL 75MG TABLET ONE (10:13)
[2020-08-08] MEDS ORDERED: ASPIRIN 325MG TABLET ONE (10:14)
[2020-08-08] MEDS ORDERED: ATROPINE SULFATE 1MG/10ML SYR IV PRN (10:30)
[2020-08-08] MEDS ORDERED: ONDANSETRON HCL 4MG/2ML INJ IV PRN (10:30)
[2020-08-08] MEDS ORDERED: ACETAMINOPHEN 325MG TABLET PO PRN (10:30)
[2020-08-08] MEDS: ATORVASTATIN CALCIUM 10MG TABLET PO SCH (20:17)
[2020-08-08] MEDS: ZOLPIDEM TARTRATE 5MG TABLET PO PRN (21:53)
[2020-08-09] VITALS (13 sets, daily range): BP systolic 121–155; BP diastolic 46–94
[2020-08-09] MEDS: MORPHINE SULFATE 2 MG/ML CPJ (NOT FOR IM USE) IV PRN ×4 (01:52→21:06)
[2020-08-09] MEDS: POLYVINYL ALCOHOL OPHTH DROPS 15ML BOTHEYE SCH ×5 (06:11→23:05)
[2020-08-09] MEDS: GABAPENTIN 100MG CAPSULE PO SCH (06:11)
[2020-08-09 08:09] LABS: BASOPHILS % 1.8 % (0.0-2.0); EOSINOPHILS % 9.5 % (0.0-5.0); HEMOGLOBIN. 9.9 g/dL (12.0-16.0); LYMPHOCYTES % 23.4 % (20.0-50.0); MEAN CORPUSCULAR HEMOGLOBIN 29.8 pg (28.0-32.0); MEAN CORPUSCULAR VOLUME 89.9 fL (81.0-99.0); NEUTROPHILS % 54.3 % (40.0-76.0); PLATELET 225 x1000/uL (130-400); RED BLOOD CELL COUNT 3.34 mill/uL (4.2-5.4); RED CELL DISTRIBUTION WIDTH 13.6 % (11.6-14.6)
[2020-08-09 08:54] LABS: CHLORIDE 108 mEq/L (98-107)
[2020-08-09] MEDS: ASPIRIN 325MG TABLET PO SCH (09:49)
[2020-08-09] MEDS: METOPROLOL TARTRATE 25MG TABLET PO SCH (09:50)
[2020-08-09] MEDS: AMLODIPINE 10MG TABLET PO SCH (09:50)
[2020-08-09] MEDS: CLOPIDOGREL 75MG TABLET PO SCH (09:50)
[2020-08-09] MEDS: HEPARIN 5000 UNITS/ML VIAL SUBCUT SCH ×2 (09:50→21:04)
[2020-08-09] MEDS ORDERED: ASPI-986 PO (10:35)
[2020-08-09] MEDS ORDERED: ATOR10TA PO (10:35)
[2020-08-09] MEDS ORDERED: METO25TA6 PO (10:35)
[2020-08-09] MEDS ORDERED: CLOP75TA15 PO (10:35)
[2020-08-09] MEDS ORDERED: HYDROCODONE/ACETAMINOPHEN 5/325MG TABLET PO PRN ×2 (13:00)
[2020-08-09] MEDS: GABAPENTIN 300MG CAPSULE PO SCH ×2 (15:01→21:03)
[2020-08-09 17:33] LABS: T4 FREE 1.21 ng/dL (0.76-1.46)
[2020-08-09 18:27] LABS: FOLIC ACID (FOLATE) SERUM 11.5 ng/mL (>5.38)
[2020-08-09] MEDS: DOCUSATE SODIUM 100MG CAPSULE PO PRN (21:03)
[2020-08-09] MEDS: ATORVASTATIN CALCIUM 10MG TABLET PO SCH (21:03)
[2020-08-09] MEDS: ZOLPIDEM TARTRATE 5MG TABLET PO PRN (23:05)
[2020-08-10] VITALS (9 sets, daily range): BP systolic 113–151; BP diastolic 40–116
[2020-08-10] MEDS: MORPHINE SULFATE 2 MG/ML CPJ (NOT FOR IM USE) IV PRN ×4 (04:22→21:52)
[2020-08-10] MEDS: GABAPENTIN 300MG CAPSULE PO SCH ×3 (05:51→21:51)
[2020-08-10] MEDS: POLYVINYL ALCOHOL OPHTH DROPS 15ML BOTHEYE SCH ×4 (05:51→23:06)
[2020-08-10 07:09] LABS: CHLORIDE 107 mEq/L (98-107)
[2020-08-10 07:46] LABS: EOSINOPHILS % 4.4 % (0.0-5.0); HEMATOCRIT. 27.6 % (36.0-48.0); HEMOGLOBIN. 9.2 g/dL (12.0-16.0); LYMPHOCYTES % 20.2 % (20.0-50.0); MEAN CORPUSCULAR VOLUME 89.9 fL (81.0-99.0); MONOCYTES % 10.8 % (2.0-8.0); NEUTROPHILS % 63.6 % (40.0-76.0); RED BLOOD CELL COUNT 3.07 mill/uL (4.2-5.4); RED CELL DISTRIBUTION WIDTH 13.6 % (11.6-14.6)
[2020-08-10] MEDS: CLOPIDOGREL 75MG TABLET PO SCH (09:38)
[2020-08-10] MEDS: ASPIRIN 325MG TABLET PO SCH (09:38)
[2020-08-10] MEDS: AMLODIPINE 10MG TABLET PO SCH (09:38)
[2020-08-10] MEDS: METOPROLOL TARTRATE 25MG TABLET PO SCH (09:38)
[2020-08-10] MEDS: HEPARIN 5000 UNITS/ML VIAL SUBCUT SCH ×2 (09:45→21:51)
[2020-08-10 10:21] LABS: PLATELET 205 x1000/uL (130-400)
[2020-08-10] MEDS: ATORVASTATIN CALCIUM 10MG TABLET PO SCH (21:51)
[2020-08-10] MEDS: ZOLPIDEM TARTRATE 5MG TABLET PO PRN (23:06)
[2020-08-11] VITALS (7 sets, daily range): BP systolic 119–136; BP diastolic 43–51
[2020-08-11] MEDS: MORPHINE SULFATE 2 MG/ML CPJ (NOT FOR IM USE) IV PRN ×3 (02:12→22:10)
[2020-08-11] MEDS: TRAMADOL 50MG TABLET PO PRN ×3 (03:26→21:09)
[2020-08-11] MEDS ORDERED: MORPHINE SULFATE 4 MG/ML CPJ (NOT FOR IM USE) IV PRN (04:45)
[2020-08-11] MEDS: GABAPENTIN 300MG CAPSULE PO SCH ×3 (05:27→21:08)
[2020-08-11] MEDS: POLYVINYL ALCOHOL OPHTH DROPS 15ML BOTHEYE SCH ×4 (05:28→23:47)
[2020-08-11 07:15] LABS: BASOPHILS % 1.3 % (0.0-2.0); EOSINOPHILS % 6.9 % (0.0-5.0); HEMATOCRIT. 27.3 % (36.0-48.0); HEMOGLOBIN. 9.2 g/dL (12.0-16.0); LYMPHOCYTES % 25.7 % (20.0-50.0); MEAN CORPUSCULAR HEMOGLOBIN 30.2 pg (28.0-32.0); MEAN CORPUSCULAR VOLUME 89.7 fL (81.0-99.0); MONOCYTES % 12.7 % (2.0-8.0); NEUTROPHILS % 53.4 % (40.0-76.0); PLATELET 196 x1000/uL (130-400); RED BLOOD CELL COUNT 3.04 mill/uL (4.2-5.4); RED CELL DISTRIBUTION WIDTH 13.6 % (11.6-14.6)
[2020-08-11 07:27] LABS: CHLORIDE 105 mEq/L (98-107)
[2020-08-11] MEDS: CLOPIDOGREL 75MG TABLET PO SCH (10:01)
[2020-08-11] MEDS: HEPARIN 5000 UNITS/ML VIAL SUBCUT SCH ×2 (10:01→21:08)
[2020-08-11] MEDS: AMLODIPINE 10MG TABLET PO SCH (10:02)
[2020-08-11] MEDS: ASPIRIN 325MG TABLET PO SCH (10:02)
[2020-08-11] MEDS: METOPROLOL TARTRATE 25MG TABLET PO SCH (10:02)
[2020-08-11] MEDS: ATORVASTATIN CALCIUM 10MG TABLET PO SCH (20:48)
[2020-08-11] MEDS: DOCUSATE SODIUM 100MG CAPSULE PO PRN (23:47)
[2020-08-11] MEDS: ZOLPIDEM TARTRATE 5MG TABLET PO PRN (23:47)
[2020-08-12] VITALS (7 sets, daily range): BP systolic 105–149; BP diastolic 43–48
[2020-08-12] MEDS: GABAPENTIN 300MG CAPSULE PO SCH ×3 (05:26→21:53)
[2020-08-12] MEDS: POLYVINYL ALCOHOL OPHTH DROPS 15ML BOTHEYE SCH ×4 (05:26→23:48)
[2020-08-12] MEDS ORDERED: LIDOCAINE HCL 1% 20ML VIAL (Pyxis) INJ ONE (08:20)
[2020-08-12] MEDS ORDERED: SODIUM BICARBONATE 4% (2.4MEQ) 5ML VIAL IV ONE (08:20)
[2020-08-12] MEDS: HEPARIN 5000 UNITS/ML VIAL SUBCUT SCH ×2 (08:52→21:53)
[2020-08-12] MEDS: CLOPIDOGREL 75MG TABLET PO SCH (08:53)
[2020-08-12] MEDS: METOPROLOL TARTRATE 25MG TABLET PO SCH (08:53)
[2020-08-12] MEDS: ASPIRIN 325MG TABLET PO SCH (08:53)
[2020-08-12] MEDS: AMLODIPINE 10MG TABLET PO SCH (08:53)
[2020-08-12] MEDS: DOCUSATE SODIUM 100MG CAPSULE PO PRN (12:34)
[2020-08-12] MEDS ORDERED: BISACODYL 10MG SUPP PR SCH (14:00)
[2020-08-12] MEDS: LACTULOSE 20G/30ML UDC PO SCH ×2 (14:00→18:00)
[2020-08-12] MEDS ORDERED: IOHEXOL-350 100 ML BOTTLE ONE (15:04)
[2020-08-12] MEDS: TRAMADOL 50MG TABLET PO PRN (17:12)
[2020-08-12] MEDS: MORPHINE SULFATE 2 MG/ML CPJ (NOT FOR IM USE) IV PRN (20:34)
[2020-08-12] MEDS: ATORVASTATIN CALCIUM 20MG TABLET PO SCH (21:53)
[2020-08-13] VITALS (8 sets, daily range): BP systolic 109–153; BP diastolic 42–57
[2020-08-13] MEDS: GABAPENTIN 300MG CAPSULE PO SCH ×3 (06:12→20:37)
[2020-08-13] MEDS: POLYVINYL ALCOHOL OPHTH DROPS 15ML BOTHEYE SCH ×3 (06:13→18:00)
[2020-08-13] MEDS: ASPIRIN 325MG TABLET PO SCH (09:28)
[2020-08-13] MEDS: CLOPIDOGREL 75MG TABLET PO SCH (09:28)
[2020-08-13] MEDS: METOPROLOL TARTRATE 25MG TABLET PO SCH (09:28)
[2020-08-13] MEDS: HEPARIN 5000 UNITS/ML VIAL SUBCUT SCH ×2 (09:28→20:36)
[2020-08-13] MEDS: AMLODIPINE 10MG TABLET PO SCH (09:29)
[2020-08-13] MEDS: TRAMADOL 50MG TABLET PO PRN ×2 (11:35→20:45)
[2020-08-13] MEDS: ATORVASTATIN CALCIUM 20MG TABLET PO SCH (20:37)
[2020-08-16 04:11] LABS: 25-HYDROXY VITAMIN D3 29 ng/mL (.)
== END 2020-08-13 21:20 | DRG 853 ==
LOC: ER 17:49 → MERGE 21:43 → 3WST 21:43 → EDBEDREQ 21:47 → EDBEDREQSVC 21:47 → EDBEDREQTM 21:47 → EDBEDREQ 08-07 08:12 → ENRESERV 08-07 13:43
PROVIDERS: ADMIT Internal Medicine; ATTEND Internal Medicine
PROC: 027034Z Dilation of Coronary Artery, One Artery with Drug-eluting Intraluminal Device, Percutaneous Approach (ICD-10-PCS; principal; 2020-08-08)
PROC: 4A023N7 Measurement of Cardiac Sampling and Pressure, Left Heart, Percutaneous Approach (ICD-10-PCS; 2020-08-08)
PROC: B211YZZ Fluoroscopy of Multiple Coronary Arteries using Other Contrast (ICD-10-PCS; 2020-08-08)
PROC: B215YZZ Fluoroscopy of Left Heart using Other Contrast (ICD-10-PCS; 2020-08-08)
PROC: 02HV33Z Insertion of Infusion Device into Superior Vena Cava, Percutaneous Approach (ICD-10-PCS; 2020-08-12)
PROC: B548ZZA Ultrasonography of Superior Vena Cava, Guidance (ICD-10-PCS; 2020-08-12)
DX: A41.9 Sepsis, unspecified organism (principal); I63.9 Cerebral infarction, unspecified; G82.50 Quadriplegia, unspecified; R41.4 Neurologic neglect syndrome; I25.110 Atherosclerotic heart disease of native coronary artery with unstable angina pectoris; N13.30 Unspecified hydronephrosis; Z68.1 Body mass index [BMI] 19.9 or less, adult; K52.9 Noninfective gastroenteritis and colitis, unspecified; G89.29 Other chronic pain; I10 Essential (primary) hypertension; D64.9 Anemia, unspecified; J44.9 Chronic obstructive pulmonary disease, unspecified; E78.5 Hyperlipidemia, unspecified; M19.90 Unspecified osteoarthritis, unspecified site; Z20.822 Contact with and (suspected) exposure to COVID-19; M48.061 Spinal stenosis, lumbar region without neurogenic claudication; M50.30 Other cervical disc degeneration, unspecified cervical region; M48.02 Spinal stenosis, cervical region; M47.812 Spondylosis without myelopathy or radiculopathy, cervical region; I73.9 Peripheral vascular disease, unspecified; M47.816 Spondylosis without myelopathy or radiculopathy, lumbar region; I70.0 Atherosclerosis of aorta; I99.8 Other disorder of circulatory system; Z95.5 Presence of coronary angioplasty implant and graft; Z98.51 Tubal ligation status; Z88.2 Allergy status to sulfonamides; Z79.82 Long term (current) use of aspirin; Z79.899 Other long term (current) drug therapy; Z86.73 Personal history of transient ischemic attack (TIA), and cerebral infarction without residual deficits; H04.129 Dry eye syndrome of unspecified lacrimal gland; R63.0 Anorexia; D72.819 Decreased white blood cell count, unspecified
CPT/HCPCS: 36415; 36573; 70544; 70551; 70553; 71045; 72141; 72148; 72191; 73706; 74176; 80053; 80061; 81003; 82306; 82607; 82746; 83036; 83605; 83735; 83880; 84145; 84439; 84443; 84481; 84484; 85025; 85347; 87015; 87045; 87426; 87427; 87449; 87493; 87804; 92928; 93005; 93306; 93458; 93880; 96361; 96374; 96376; 97162; 97166; 97530; 97535; 99285; C1725; C1769; C1874; C1887; C1893; J1644; J2250; J2270; J2370; J3010; J3490; Q9967; U0003

== ENCOUNTER 2020-08-13 21:18 | Inpatient (IN) | payer MEDICARE ==
[~2020-08-13] VITALS: Ht 162.6 cm; Wt 50.0 kg
[~2020-08-13 21:18] MED LIST changes: -ASPI-1406 PO; +ASPI-986 PO; +ATOR10TA PO; +CLOP75TA15 PO; +METO25TA6 PO; -TRAM50TA3 PO
[2020-08-13 21:30] VITALS: BP 135/47
[2020-08-13] MEDS ORDERED: ATROPINE SULFATE 1MG/10ML SYR IV PRN (22:00)
[2020-08-13] MEDS ORDERED: ONDANSETRON HCL 4MG/2ML INJ IV PRN (22:00)
[2020-08-13] MEDS ORDERED: SENNOSIDES/DOCUSATE SOD 8.6/50MG TABLET PO PRN (22:00)
[2020-08-13] MEDS ORDERED: DOCUSATE SODIUM 250MG CAPSULE PO PRN (22:00)
[2020-08-13] MEDS: GABAPENTIN 300MG CAPSULE PO SCH (22:00)
[2020-08-13] MEDS ORDERED: MORPHINE SULFATE 2 MG/ML CPJ (NOT FOR IM USE) IV PRN (22:00)
[2020-08-13] MEDS ORDERED: ACETAMINOPHEN 500MG TABLET PO PRN (22:00)
[2020-08-13] MEDS ORDERED: MAGNESIUM HYDROXIDE 400MG/5ML 30ML UDC PO PRN (22:00)
[2020-08-13] MEDS: TRAZODONE HCL 50MG TABLET PO PRN (23:21)
[2020-08-13] MEDS: TRAMADOL 50MG TABLET PO PRN (23:27)
[2020-08-14] MEDS: GABAPENTIN 300MG CAPSULE PO SCH ×3 (05:49→21:03)
[2020-08-14 06:32] LABS: BASOPHILS % 1.1 % (0.0-2.0); EOSINOPHILS % 5.1 % (0.0-5.0); HEMATOCRIT. 27.3 % (36.0-48.0); HEMOGLOBIN. 9.1 g/dL (12.0-16.0); LYMPHOCYTES % 22.4 % (20.0-50.0); MEAN CORPUSCULAR HEMOGLOBIN 30.5 pg (28.0-32.0); MEAN CORPUSCULAR VOLUME 91.5 fL (81.0-99.0); MEAN PLATELET VOLUME 9.6 fl (7.4-10.4); MONOCYTES % 10.2 % (2.0-8.0); NEUTROPHILS % 61.2 % (40.0-76.0); PLATELET 51 x1000/uL (130-400); RED BLOOD CELL COUNT 2.98 mill/uL (4.2-5.4); RED CELL DISTRIBUTION WIDTH 13.5 % (11.6-14.6)
[2020-08-14 06:53] LABS: CHLORIDE 103 mEq/L (98-107)
[2020-08-14 08:26] VITALS: BP 128/50
[2020-08-14] MEDS: HEPARIN 5000 UNITS/ML VIAL SUBCUT SCH (09:00)
[2020-08-14] MEDS: CLOPIDOGREL 75MG TABLET PO SCH (09:53)
[2020-08-14] MEDS: METOPROLOL TARTRATE 25MG TABLET PO SCH (09:54)
[2020-08-14] MEDS: AMLODIPINE 10MG TABLET PO SCH (09:54)
[2020-08-14] MEDS: TRAMADOL 50MG TABLET PO PRN ×2 (10:21→21:04)
[2020-08-14] MEDS: ASPIRIN 325MG TABLET PO SCH (10:21)
[2020-08-14] MEDS: POLYVINYL ALCOHOL OPHTH DROPS 15ML BOTHEYE SCH ×3 (12:00→18:00)
[2020-08-14 20:00] VITALS: BP 148/59
[2020-08-14] MEDS ORDERED: TRAZODONE HCL 50MG TABLET PO SCH (21:00)
[2020-08-14] MEDS: ATORVASTATIN CALCIUM 20MG TABLET PO SCH (21:05)
[2020-08-15] MEDS: POLYVINYL ALCOHOL OPHTH DROPS 15ML BOTHEYE SCH ×5 (01:58→23:38)
[2020-08-15] MEDS: GABAPENTIN 300MG CAPSULE PO SCH ×3 (05:59→21:49)
[2020-08-15] MEDS: TRAMADOL 50MG TABLET PO PRN ×3 (06:01→22:30)
[2020-08-15] MEDS ORDERED: NA PHOS,M-B/NA PHOS,DI-BA ENEMA 118ML PR PRN ×2 (08:00)
[2020-08-15] MEDS ORDERED: BISACODYL 5MG TABLET PO PRN (08:00)
[2020-08-15 08:15] VITALS: BP 129/52
[2020-08-15 08:32] LABS: BASOPHILS % 1.1 % (0.0-2.0); EOSINOPHILS % 4.5 % (0.0-5.0); HEMATOCRIT. 25.6 % (36.0-48.0); HEMOGLOBIN. 8.5 g/dL (12.0-16.0); LYMPHOCYTES % 18.9 % (20.0-50.0); MEAN CORPUSCULAR HEMOGLOBIN 29.8 pg (28.0-32.0); MEAN CORPUSCULAR VOLUME 89.5 fL (81.0-99.0); MONOCYTES % 14.6 % (2.0-8.0); NEUTROPHILS % 60.9 % (40.0-76.0); PLATELET 199 x1000/uL (130-400); RED BLOOD CELL COUNT 2.86 mill/uL (4.2-5.4); RED CELL DISTRIBUTION WIDTH 13.1 % (11.6-14.6)
[2020-08-15 08:47] LABS: CHLORIDE 103 mEq/L (98-107)
[2020-08-15 08:52] LABS: PHOSPHORUS 4.1 mg/dL (2.5-4.9); TOTAL IRON BINDING CAPACITY 233 ug/dL (250-450)
[2020-08-15 09:04] LABS: FOLIC ACID (FOLATE) SERUM 19.5 ng/mL (>5.38)
[2020-08-15] MEDS: CLOPIDOGREL 75MG TABLET PO SCH (09:19)
[2020-08-15] MEDS: ASPIRIN 325MG TABLET PO SCH (09:19)
[2020-08-15] MEDS: METOPROLOL TARTRATE 25MG TABLET PO SCH (09:19)
[2020-08-15] MEDS: AMLODIPINE 10MG TABLET PO SCH (09:19)
[2020-08-15 20:00] VITALS: BP 114/48
[2020-08-15] MEDS: ATORVASTATIN CALCIUM 20MG TABLET PO SCH (21:49)
[2020-08-16] MEDS: ACETAMINOPHEN 325MG TABLET PO PRN (00:29)
[2020-08-16] MEDS: GABAPENTIN 300MG CAPSULE PO SCH ×3 (06:35→21:27)
[2020-08-16] MEDS: POLYVINYL ALCOHOL OPHTH DROPS 15ML BOTHEYE SCH ×4 (06:38→23:03)
[2020-08-16] MEDS: TRAMADOL 50MG TABLET PO PRN ×2 (06:38→21:48)
[2020-08-16 08:00] VITALS: BP 129/47
[2020-08-16] MEDS: CLOPIDOGREL 75MG TABLET PO SCH (09:17)
[2020-08-16] MEDS: METOPROLOL TARTRATE 25MG TABLET PO SCH (09:17)
[2020-08-16] MEDS: AMLODIPINE 10MG TABLET PO SCH (09:17)
[2020-08-16] MEDS: ASPIRIN 325MG TABLET PO SCH (09:18)
[2020-08-16 20:00] VITALS: BP 124/53
[2020-08-16] MEDS: ATORVASTATIN CALCIUM 20MG TABLET PO SCH (21:27)
[2020-08-17] MEDS: GABAPENTIN 300MG CAPSULE PO SCH ×3 (05:41→21:00)
[2020-08-17] MEDS: POLYVINYL ALCOHOL OPHTH DROPS 15ML BOTHEYE SCH ×2 (05:42→14:12)
[2020-08-17 08:06] LABS: BASOPHILS % 0.8 % (0.0-2.0); EOSINOPHILS % 6.3 % (0.0-5.0); HEMATOCRIT. 27.5 % (36.0-48.0); HEMOGLOBIN. 9.2 g/dL (12.0-16.0); LYMPHOCYTES % 16.5 % (20.0-50.0); MEAN CORPUSCULAR VOLUME 89.7 fL (81.0-99.0); MEAN PLATELET VOLUME 8.3 fl (7.4-10.4); MONOCYTES % 12.4 % (2.0-8.0); PLATELET 225 x1000/uL (130-400); RED BLOOD CELL COUNT 3.06 mill/uL (4.2-5.4); RED CELL DISTRIBUTION WIDTH 13.2 % (11.6-14.6)
[2020-08-17] MEDS: AMLODIPINE 10MG TABLET PO SCH (09:00)
[2020-08-17] MEDS: ASPIRIN 325MG TABLET PO SCH (11:11)
[2020-08-17] MEDS: CLOPIDOGREL 75MG TABLET PO SCH (11:17)
[2020-08-17] MEDS: ASCORBIC ACID 500 MG TABLET PO SCH (11:17)
[2020-08-17] MEDS: FERROUS SULFATE 325MG TABLET PO SCH ×2 (11:18→14:11)
[2020-08-17] MEDS: METOPROLOL TARTRATE 25MG TABLET PO SCH (11:18)
[2020-08-17] MEDS: MEGESTROL ACETATE 400 MG/10 ML UDC PO SCH (11:24)
[2020-08-17] MEDS: ATORVASTATIN CALCIUM 20MG TABLET PO SCH (21:00)
[2020-08-17] MEDS: TRAMADOL 50MG TABLET PO PRN (21:02)
[2020-08-17] MEDS: TRAZODONE HCL 50MG TABLET PO PRN (22:12)
[2020-08-18] MEDS: POLYVINYL ALCOHOL OPHTH DROPS 15ML BOTHEYE SCH ×5 (00:10→17:56)
[2020-08-18] MEDS: TRAMADOL 50MG TABLET PO PRN ×3 (04:40→21:32)
[2020-08-18] MEDS: GABAPENTIN 300MG CAPSULE PO SCH ×3 (06:02→21:24)
[2020-08-18 07:55] VITALS: BP 137/50
[2020-08-18] MEDS: MEGESTROL ACETATE 400 MG/10 ML UDC PO SCH (08:22)
[2020-08-18] MEDS: FERROUS SULFATE 325MG TABLET PO SCH ×3 (08:22→17:56)
[2020-08-18] MEDS: ASCORBIC ACID 500 MG TABLET PO SCH (08:22)
[2020-08-18] MEDS: CLOPIDOGREL 75MG TABLET PO SCH (08:22)
[2020-08-18] MEDS: ASPIRIN 325MG TABLET PO SCH (08:22)
[2020-08-18] MEDS: AMLODIPINE 10MG TABLET PO SCH (08:23)
[2020-08-18] MEDS: METOPROLOL TARTRATE 25MG TABLET PO SCH (08:23)
[2020-08-18 08:49] LABS: BASOPHILS % 0.8 % (0.0-2.0); EOSINOPHILS % 5.1 % (0.0-5.0); HEMATOCRIT. 27.1 % (36.0-48.0); HEMOGLOBIN. 9.1 g/dL (12.0-16.0); LYMPHOCYTES % 19.8 % (20.0-50.0); MEAN CORPUSCULAR HEMOGLOBIN 29.9 pg (28.0-32.0); MEAN CORPUSCULAR VOLUME 89.3 fL (81.0-99.0); MEAN PLATELET VOLUME 8.2 fl (7.4-10.4); MONOCYTES % 11.5 % (2.0-8.0); NEUTROPHILS % 62.8 % (40.0-76.0); PLATELET 250 x1000/uL (130-400); RED BLOOD CELL COUNT 3.03 mill/uL (4.2-5.4); RED CELL DISTRIBUTION WIDTH 13.4 % (11.6-14.6)
[2020-08-18 20:00] VITALS: BP 108/35
[2020-08-18] MEDS: TRAZODONE HCL 50MG TABLET PO PRN (21:24)
[2020-08-18] MEDS: ATORVASTATIN CALCIUM 20MG TABLET PO SCH (21:24)
[2020-08-18] MEDS: HEPARIN 5000 UNITS/ML VIAL SUBCUT SCH (21:30)
[2020-08-19] MEDS: POLYVINYL ALCOHOL OPHTH DROPS 15ML BOTHEYE SCH ×5 (00:22→23:06)
[2020-08-19] MEDS: CEFTRIAXONE 1,000 MG in DEXTROSE 5% WATER 50 ML IV SCH ×2 (00:23→20:32)
[2020-08-19] MEDS: GABAPENTIN 300MG CAPSULE PO SCH ×3 (06:40→22:05)
[2020-08-19 07:36] LABS: EOSINOPHILS % 3.2 % (0.0-5.0); HEMATOCRIT. 27.9 % (36.0-48.0); HEMOGLOBIN. 9.4 g/dL (12.0-16.0); LYMPHOCYTES % 17.7 % (20.0-50.0); MEAN CORPUSCULAR HEMOGLOBIN 30.2 pg (28.0-32.0); MEAN CORPUSCULAR VOLUME 89.7 fL (81.0-99.0); MEAN PLATELET VOLUME 7.9 fl (7.4-10.4); MONOCYTES % 10.9 % (2.0-8.0); NEUTROPHILS % 67.2 % (40.0-76.0); PLATELET 237 x1000/uL (130-400); RED BLOOD CELL COUNT 3.11 mill/uL (4.2-5.4); RED CELL DISTRIBUTION WIDTH 13.4 % (11.6-14.6)
[2020-08-19 08:30] VITALS: BP 128/71
[2020-08-19] MEDS: ASPIRIN 325MG TABLET PO SCH (08:50)
[2020-08-19] MEDS: MEGESTROL ACETATE 400 MG/10 ML UDC PO SCH (08:50)
[2020-08-19] MEDS: ASCORBIC ACID 500 MG TABLET PO SCH (08:51)
[2020-08-19] MEDS: CLOPIDOGREL 75MG TABLET PO SCH (08:51)
[2020-08-19] MEDS: METOPROLOL TARTRATE 25MG TABLET PO SCH (08:51)
[2020-08-19] MEDS: FERROUS SULFATE 325MG TABLET PO SCH ×3 (08:51→17:07)
[2020-08-19] MEDS: AMLODIPINE 10MG TABLET PO SCH (08:51)
[2020-08-19] MEDS: HEPARIN 5000 UNITS/ML VIAL SUBCUT SCH ×2 (08:52→22:14)
[2020-08-19] MEDS: TRAMADOL 50MG TABLET PO PRN ×2 (09:44→22:05)
[2020-08-19 20:00] VITALS: BP 122/41
[2020-08-19] MEDS: ATORVASTATIN CALCIUM 20MG TABLET PO SCH (22:05)
[2020-08-20] MEDS: ACETAMINOPHEN 325MG TABLET PO PRN (01:18)
[2020-08-20] MEDS: TRAMADOL 50MG TABLET PO PRN (04:18)
[2020-08-20] MEDS: GABAPENTIN 300MG CAPSULE PO SCH ×3 (06:37→20:51)
[2020-08-20] MEDS: POLYVINYL ALCOHOL OPHTH DROPS 15ML BOTHEYE SCH ×3 (06:37→17:17)
[2020-08-20 07:07] LABS: 25-HYDROXY VITAMIN D3 31 ng/mL (.)
[2020-08-20 08:00] VITALS: BP 128/51
[2020-08-20] MEDS: MEGESTROL ACETATE 400 MG/10 ML UDC PO SCH (09:57)
[2020-08-20] MEDS: FERROUS SULFATE 325MG TABLET PO SCH ×3 (09:58→17:17)
[2020-08-20] MEDS: CLOPIDOGREL 75MG TABLET PO SCH (09:58)
[2020-08-20] MEDS: METOPROLOL TARTRATE 25MG TABLET PO SCH (09:58)
[2020-08-20] MEDS: HEPARIN 5000 UNITS/ML VIAL SUBCUT SCH ×2 (09:58→20:51)
[2020-08-20] MEDS: ASCORBIC ACID 500 MG TABLET PO SCH (09:58)
[2020-08-20] MEDS: AMLODIPINE 10MG TABLET PO SCH (09:58)
[2020-08-20] MEDS: ASPIRIN 81MG EC TABLET PO SCH (09:58)
[2020-08-20 12:00] VITALS: BP 131/48
[2020-08-20 20:00] VITALS: BP 137/46
[2020-08-20] MEDS: ATORVASTATIN CALCIUM 20MG TABLET PO SCH (20:51)
[2020-08-20] MEDS: CEFTRIAXONE 1,000 MG in DEXTROSE 5% WATER 50 ML IV SCH (20:51)
[2020-08-20] MEDS: TRAZODONE HCL 50MG TABLET PO PRN (21:00)
[2020-08-21] MEDS: TRAMADOL 50MG TABLET PO PRN ×2 (02:15→09:15)
[2020-08-21] MEDS: POLYVINYL ALCOHOL OPHTH DROPS 15ML BOTHEYE SCH ×4 (06:09→17:04)
[2020-08-21] MEDS: GABAPENTIN 300MG CAPSULE PO SCH ×3 (06:09→21:10)
[2020-08-21 08:00] VITALS: BP 161/53
[2020-08-21] MEDS: MEGESTROL ACETATE 400 MG/10 ML UDC PO SCH (08:54)
[2020-08-21] MEDS: CLOPIDOGREL 75MG TABLET PO SCH (08:55)
[2020-08-21] MEDS: AMLODIPINE 10MG TABLET PO SCH (08:55)
[2020-08-21] MEDS: FERROUS SULFATE 325MG TABLET PO SCH ×3 (08:55→17:04)
[2020-08-21] MEDS: METOPROLOL TARTRATE 25MG TABLET PO SCH (08:55)
[2020-08-21] MEDS: ASPIRIN 81MG EC TABLET PO SCH (08:55)
[2020-08-21] MEDS: ASCORBIC ACID 500 MG TABLET PO SCH (08:55)
[2020-08-21] MEDS: HEPARIN 5000 UNITS/ML VIAL SUBCUT SCH ×2 (08:56→21:10)
[2020-08-21 18:22] LABS: CLARITY URINE CLEAR (CLEAR); COLOR URINE YELLOW (YELLOW); KETONES URINE NEGATIVE (NEGATIVE); LEUKOCYTE ESTERASE URINE TRACE (NEGATIVE); NITRITE URINE NEGATIVE (NEGATIVE); OCCULT BLOOD URINE NEGATIVE (NEGATIVE); PROTEIN URINE NEGATIVE (NEGATIVE); SPECIFIC GRAVITY URINE 1.013 (1.005-1.030); UROBILINOGEN URINE 0.2 E.U./dL (0.2-1.0)
[2020-08-21 20:00] VITALS: BP 150/51
[2020-08-21] MEDS: ATORVASTATIN CALCIUM 20MG TABLET PO SCH (21:10)
[2020-08-21] MEDS: TRAZODONE HCL 50MG TABLET PO PRN (21:10)
[2020-08-21] MEDS: CEFTRIAXONE 1,000 MG in DEXTROSE 5% WATER 50 ML IV SCH (21:10)
[2020-08-22] MEDS: POLYVINYL ALCOHOL OPHTH DROPS 15ML BOTHEYE SCH ×4 (01:25→17:29)
[2020-08-22] MEDS: TRAMADOL 50MG TABLET PO PRN ×3 (01:26→21:05)
[2020-08-22] MEDS: GABAPENTIN 300MG CAPSULE PO SCH ×3 (05:13→17:29)
[2020-08-22 07:22] LABS: BASOPHILS % 0.9 % (0.0-2.0); EOSINOPHILS % 2.1 % (0.0-5.0); HEMATOCRIT. 23.9 % (36.0-48.0); HEMOGLOBIN. 8.1 g/dL (12.0-16.0); LYMPHOCYTES % 19.3 % (20.0-50.0); MEAN CORPUSCULAR VOLUME 89.1 fL (81.0-99.0); MEAN PLATELET VOLUME 7.9 fl (7.4-10.4); MONOCYTES % 8.8 % (2.0-8.0); NEUTROPHILS % 68.9 % (40.0-76.0); PLATELET 279 x1000/uL (130-400); RED BLOOD CELL COUNT 2.68 mill/uL (4.2-5.4); RED CELL DISTRIBUTION WIDTH 13.3 % (11.6-14.6)
[2020-08-22 07:33] LABS: CHLORIDE 110 mEq/L (98-107)
[2020-08-22 07:39] LABS: PHOSPHORUS 3.3 mg/dL (2.5-4.9)
[2020-08-22 07:48] VITALS: BP 131/64
[2020-08-22] MEDS: MEGESTROL ACETATE 400 MG/10 ML UDC PO SCH (09:27)
[2020-08-22] MEDS: AMLODIPINE 10MG TABLET PO SCH (09:28)
[2020-08-22] MEDS: FERROUS SULFATE 325MG TABLET PO SCH ×3 (09:28→17:29)
[2020-08-22] MEDS: HEPARIN 5000 UNITS/ML VIAL SUBCUT SCH ×2 (09:28→21:06)
[2020-08-22] MEDS: ASPIRIN 81MG EC TABLET PO SCH (09:29)
[2020-08-22] MEDS: ASCORBIC ACID 500 MG TABLET PO SCH (09:29)
[2020-08-22] MEDS: METOPROLOL TARTRATE 25MG TABLET PO SCH (09:29)
[2020-08-22] MEDS: CLOPIDOGREL 75MG TABLET PO SCH (09:29)
[2020-08-22 20:00] VITALS: BP 122/39
[2020-08-22] MEDS: CEFTRIAXONE 1,000 MG in DEXTROSE 5% WATER 50 ML IV SCH (20:00)
[2020-08-22] MEDS: ATORVASTATIN CALCIUM 20MG TABLET PO SCH (21:04)
[2020-08-22] MEDS: TRAZODONE HCL 50MG TABLET PO PRN (21:04)
[2020-08-23] MEDS: GABAPENTIN 300MG CAPSULE PO SCH ×4 (00:13→17:29)
[2020-08-23] MEDS: POLYVINYL ALCOHOL OPHTH DROPS 15ML BOTHEYE SCH ×4 (00:14→17:29)
[2020-08-23 08:00] VITALS: BP 142/54
[2020-08-23] MEDS: HEPARIN 5000 UNITS/ML VIAL SUBCUT SCH (09:48)
[2020-08-23] MEDS: MEGESTROL ACETATE 400 MG/10 ML UDC PO SCH (09:48)
[2020-08-23] MEDS: AMLODIPINE 10MG TABLET PO SCH (09:49)
[2020-08-23] MEDS: ASPIRIN 81MG EC TABLET PO SCH (09:49)
[2020-08-23] MEDS: ASCORBIC ACID 500 MG TABLET PO SCH (09:49)
[2020-08-23] MEDS: CLOPIDOGREL 75MG TABLET PO SCH (09:49)
[2020-08-23] MEDS: METOPROLOL TARTRATE 25MG TABLET PO SCH (09:49)
[2020-08-23] MEDS: FERROUS SULFATE 325MG TABLET PO SCH ×3 (09:54→17:29)
[2020-08-23] MEDS: DOCUSATE SODIUM 100MG CAPSULE PO SCH ×2 (11:15→17:29)
[2020-08-23] MEDS: OMEPRAZOLE 20MG CAPSULE EXTENDED RELEASE PO SCH ×2 (12:21→20:22)
[2020-08-23] MEDS ORDERED: CLOP75TA15 PO (12:48)
[2020-08-23] MEDS ORDERED: GABA-532 PO (12:48)
[2020-08-23] MEDS ORDERED: ATOR20TA PO (12:48)
[2020-08-23] MEDS ORDERED: TRAM50TA3 PO (13:16)
[2020-08-23 16:50] LABS: BASOPHILS % 0.9 % (0.0-2.0); EOSINOPHILS % 1.9 % (0.0-5.0); HEMATOCRIT. 25.3 % (36.0-48.0); HEMOGLOBIN. 8.4 g/dL (12.0-16.0); LYMPHOCYTES % 16.2 % (20.0-50.0); MEAN CORPUSCULAR HEMOGLOBIN 30.2 pg (28.0-32.0); MEAN CORPUSCULAR VOLUME 90.4 fL (81.0-99.0); MEAN PLATELET VOLUME 7.6 fl (7.4-10.4); MONOCYTES % 10.3 % (2.0-8.0); NEUTROPHILS % 70.7 % (40.0-76.0); PLATELET 292 x1000/uL (130-400); RED CELL DISTRIBUTION WIDTH 13.5 % (11.6-14.6)
[2020-08-23 20:00] VITALS: BP 113/45
[2020-08-23] MEDS: ATORVASTATIN CALCIUM 20MG TABLET PO SCH (20:22)
[2020-08-23] MEDS: TRAMADOL 50MG TABLET PO PRN (20:22)
[2020-08-23] MEDS: TRAZODONE HCL 50MG TABLET PO PRN (21:38)
[2020-08-24] MEDS: TRAMADOL 50MG TABLET PO PRN ×2 (02:28→08:58)
[2020-08-24] MEDS: GABAPENTIN 300MG CAPSULE PO SCH ×3 (02:28→13:07)
[2020-08-24] MEDS: POLYVINYL ALCOHOL OPHTH DROPS 15ML BOTHEYE SCH ×3 (05:35→12:00)
[2020-08-24 07:40] LABS: HEMATOCRIT. 24.3 % (36.0-48.0); HEMOGLOBIN. 8.2 g/dL (12.0-16.0); LYMPHOCYTES % 20.1 % (20.0-50.0); MEAN CORPUSCULAR HEMOGLOBIN 30.5 pg (28.0-32.0); NEUTROPHILS % 65.9 % (40.0-76.0); PLATELET 269 x1000/uL (130-400); RED BLOOD CELL COUNT 2.71 mill/uL (4.2-5.4); RED CELL DISTRIBUTION WIDTH 13.7 % (11.6-14.6)
[2020-08-24] MEDS: MEGESTROL ACETATE 400 MG/10 ML UDC PO SCH (08:53)
[2020-08-24] MEDS: OMEPRAZOLE 20MG CAPSULE EXTENDED RELEASE PO SCH (08:53)
[2020-08-24] MEDS: DOCUSATE SODIUM 100MG CAPSULE PO SCH (08:53)
[2020-08-24] MEDS: METOPROLOL TARTRATE 25MG TABLET PO SCH (08:54)
[2020-08-24] MEDS: FERROUS SULFATE 325MG TABLET PO SCH ×2 (08:55→13:07)
[2020-08-24] MEDS: ASCORBIC ACID 500 MG TABLET PO SCH (08:55)
[2020-08-24] MEDS: AMLODIPINE 10MG TABLET PO SCH (08:55)
[2020-08-24] MEDS: ASPIRIN 81MG EC TABLET PO SCH (08:55)
[2020-08-24] MEDS: CLOPIDOGREL 75MG TABLET PO SCH (08:55)
[2020-08-24 12:01] VITALS: BP 125/45
== END 2020-08-24 14:55 | disposition home health service (06) | DRG 64 ==
PROVIDERS: ADMIT Physical Medicine & Rehabilitation Spinal Cord Injury Medicine; ATTEND Internal Medicine
DX: I63.9 Cerebral infarction, unspecified (principal); A41.9 Sepsis, unspecified organism; G82.50 Quadriplegia, unspecified; I25.110 Atherosclerotic heart disease of native coronary artery with unstable angina pectoris; N13.30 Unspecified hydronephrosis; E46 Unspecified protein-calorie malnutrition; M48.061 Spinal stenosis, lumbar region without neurogenic claudication; G89.4 Chronic pain syndrome; J44.9 Chronic obstructive pulmonary disease, unspecified; I10 Essential (primary) hypertension; K52.9 Noninfective gastroenteritis and colitis, unspecified; M19.90 Unspecified osteoarthritis, unspecified site; R53.81 Other malaise; M50.30 Other cervical disc degeneration, unspecified cervical region; M47.816 Spondylosis without myelopathy or radiculopathy, lumbar region; Z86.73 Personal history of transient ischemic attack (TIA), and cerebral infarction without residual deficits; D64.9 Anemia, unspecified
CPT/HCPCS: 36415; 71045; 80048; 80053; 81003; 82140; 82270; 82306; 82607; 82728; 82746; 83519; 83540; 83550; 83735; 84100; 84134; 84443; 85025; 87077; 87186; 87426; 92523; 92610; 93970; 97110; 97116; 97162; 97166; 97530; 97535; C1893; J0696; J1644; J7060

== ENCOUNTER 2020-08-30 18:11 | Inpatient (IN) | payer MEDICARE ==
[~2020-08-30] VITALS: Ht 162.6 cm; Wt 50.0 kg
[~2020-08-30 18:11] MED LIST changes: +ASPI-1406 PO; +ATOR20TA PO; +TRAM50TA3 PO
[2020-08-30 20:10] LABS: CHLORIDE 110 mEq/L (98-107); EOSINOPHILS % 2.1 % (0.0-5.0); HEMATOCRIT. 30.2 % (36.0-48.0); HEMOGLOBIN. 10.1 g/dL (12.0-16.0); LYMPHOCYTES % 17.6 % (20.0-50.0); MEAN CORPUSCULAR HEMOGLOBIN 29.8 pg (28.0-32.0); MEAN CORPUSCULAR VOLUME 89.4 fL (81.0-99.0); MEAN PLATELET VOLUME 7.8 fl (7.4-10.4); MONOCYTES % 7.7 % (2.0-8.0); NEUTROPHILS % 71.6 % (40.0-76.0); PLATELET 322 x1000/uL (130-400); RED BLOOD CELL COUNT 3.38 mill/uL (4.2-5.4); RED CELL DISTRIBUTION WIDTH 14.5 % (11.6-14.6)
[2020-08-30] MEDS ORDERED: ACETAMINOPHEN 325MG TABLET PO ONE (20:30)
[2020-08-30] MEDS ORDERED: MORPHINE SULFATE 4 MG/ML CPJ (NOT FOR IM USE) IV ONE (20:45)
[2020-08-31] MEDS: ATORVASTATIN CALCIUM 40MG TABLET PO SCH ×2 (02:00→22:11)
[2020-08-31] MEDS ORDERED: TRAMADOL 50MG TABLET PO PRN (02:00)
[2020-08-31] MEDS: CLOPIDOGREL 75MG TABLET PO SCH (02:00)
[2020-08-31] MEDS ORDERED: ONDANSETRON HCL 4MG/2ML INJ IV PRN (02:00)
[2020-08-31] MEDS: ASPIRIN 81MG TABLET PO SCH (02:00)
[2020-08-31] MEDS: TRAMADOL 50MG TABLET PO PRN ×2 (02:49→09:13)
[2020-08-31] MEDS: ACETAMINOPHEN 325MG TABLET PO PRN (04:21)
[2020-08-31] MEDS: TRAZODONE HCL 50MG TABLET PO SCH ×2 (05:49→22:10)
[2020-08-31] MEDS ORDERED: TRAZODONE HCL 50MG TABLET PO PRN (06:00)
[2020-08-31] MEDS: HEPARIN 5000 UNITS/ML VIAL SUBCUT SCH ×2 (09:10→22:10)
[2020-08-31 10:30] VITALS: BP 160/66
[2020-08-31 11:02] VITALS: BP 160/66
[2020-08-31] MEDS ORDERED: LORAZEPAM 1MG TABLET PO PRN (11:45)
[2020-08-31] MEDS ORDERED: MAGNESIUM HYDROXIDE 400MG/5ML 30ML UDC PO PRN (11:45)
[2020-08-31] MEDS ORDERED: DOCUSATE SODIUM 100MG CAPSULE PO PRN (11:45)
[2020-08-31 16:00] VITALS: BP 173/68
[2020-08-31] MEDS: METOPROLOL TARTRATE 25MG TABLET PO SCH (16:49)
[2020-08-31] MEDS: CITALOPRAM HYDROBROMIDE 10MG TABLET PO SCH (16:49)
[2020-08-31] MEDS: GABAPENTIN 300MG CAPSULE PO SCH ×2 (16:50→18:00)
[2020-08-31] MEDS: AMLODIPINE 5MG TABLET PO SCH ×2 (16:50→22:11)
[2020-08-31] MEDS: POLYVINYL ALCOHOL OPHTH DROPS 15ML BOTHEYE SCH ×2 (16:50→18:00)
[2020-08-31 20:00] VITALS: BP 128/74
[2020-08-31] MEDS ORDERED: SENNOSIDES/DOCUSATE SOD 8.6/50MG TABLET PO PRN (21:00)
[2020-09-01] VITALS: BP 111/60
[2020-09-01] MEDS: GABAPENTIN 300MG CAPSULE PO SCH ×4 (01:27→17:10)
[2020-09-01] MEDS: POLYVINYL ALCOHOL OPHTH DROPS 15ML BOTHEYE SCH ×4 (01:27→18:20)
[2020-09-01 04:00] VITALS: BP 148/70
[2020-09-01 08:00] VITALS: BP 118/55
[2020-09-01] MEDS: CLOPIDOGREL 75MG TABLET PO SCH (08:49)
[2020-09-01] MEDS: METOPROLOL TARTRATE 25MG TABLET PO SCH (08:49)
[2020-09-01] MEDS: CITALOPRAM HYDROBROMIDE 10MG TABLET PO SCH (08:49)
[2020-09-01] MEDS: ASPIRIN 81MG TABLET PO SCH (08:49)
[2020-09-01] MEDS: AMLODIPINE 5MG TABLET PO SCH ×2 (08:49→22:45)
[2020-09-01] MEDS: HEPARIN 5000 UNITS/ML VIAL SUBCUT SCH ×2 (08:50→22:45)
[2020-09-01 12:00] VITALS: BP 123/44
[2020-09-01 15:46] LABS: BASOPHILS % 0.3 % (0.0-2.0); EOSINOPHILS % 5.3 % (0.0-5.0); HEMATOCRIT. 26.2 % (36.0-48.0); HEMOGLOBIN. 8.8 g/dL (12.0-16.0); LYMPHOCYTES % 26.4 % (20.0-50.0); MEAN CORPUSCULAR VOLUME 89.7 fL (81.0-99.0); MEAN PLATELET VOLUME 7.5 fl (7.4-10.4); MONOCYTES % 10.2 % (2.0-8.0); NEUTROPHILS % 57.8 % (40.0-76.0); PLATELET 272 x1000/uL (130-400); RED BLOOD CELL COUNT 2.93 mill/uL (4.2-5.4); RED CELL DISTRIBUTION WIDTH 14.3 % (11.6-14.6)
[2020-09-01 16:00] VITALS: BP 114/42
[2020-09-01 16:00] LABS: CHLORIDE 109 mEq/L (98-107)
[2020-09-01] MEDS ORDERED: ACETAMINOPHEN WITH CODEINE 300/30MG TABLET PO PRN ×2 (16:15)
[2020-09-01] MEDS: LIDOCAINE HCL 4% CREAM 76GM TUBE TP SCH (18:20)
[2020-09-01 20:00] VITALS: BP 143/55
[2020-09-01] MEDS: TRAZODONE HCL 50MG TABLET PO SCH (22:45)
[2020-09-01] MEDS: ATORVASTATIN CALCIUM 40MG TABLET PO SCH (22:45)
[2020-09-02] MEDS: GABAPENTIN 300MG CAPSULE PO SCH ×4 (02:22→18:39)
[2020-09-02] MEDS: LIDOCAINE HCL 4% CREAM 76GM TUBE TP SCH ×4 (02:23→18:39)
[2020-09-02] MEDS: POLYVINYL ALCOHOL OPHTH DROPS 15ML BOTHEYE SCH ×4 (02:24→18:39)
[2020-09-02 04:00] VITALS: BP 115/49
[2020-09-02 06:14] LABS: BASOPHILS % 1.4 % (0.0-2.0); EOSINOPHILS % 4.8 % (0.0-5.0); HEMATOCRIT. 26.7 % (36.0-48.0); LYMPHOCYTES % 24.7 % (20.0-50.0); MEAN CORPUSCULAR HEMOGLOBIN 30.3 pg (28.0-32.0); MEAN CORPUSCULAR VOLUME 90.1 fL (81.0-99.0); MEAN PLATELET VOLUME 7.7 fl (7.4-10.4); NEUTROPHILS % 60.1 % (40.0-76.0); PLATELET 262 x1000/uL (130-400); RED BLOOD CELL COUNT 2.97 mill/uL (4.2-5.4); RED CELL DISTRIBUTION WIDTH 14.5 % (11.6-14.6)
[2020-09-02 08:00] VITALS: BP 149/51
[2020-09-02] MEDS: ASPIRIN 81MG TABLET PO SCH (09:56)
[2020-09-02] MEDS: METOPROLOL TARTRATE 25MG TABLET PO SCH (09:56)
[2020-09-02] MEDS: CLOPIDOGREL 75MG TABLET PO SCH (09:56)
[2020-09-02] MEDS: AMLODIPINE 5MG TABLET PO SCH ×2 (09:56→21:18)
[2020-09-02] MEDS: CITALOPRAM HYDROBROMIDE 10MG TABLET PO SCH (09:57)
[2020-09-02] MEDS: HEPARIN 5000 UNITS/ML VIAL SUBCUT SCH ×2 (09:57→21:18)
[2020-09-02 12:00] VITALS: BP 120/51
[2020-09-02] MEDS: NITROGLYCERIN OINT 1GM/INCH UDPKT TD SCH ×2 (12:52→18:39)
[2020-09-02] MEDS ORDERED: IBUPROFEN 200MG TABLET PO PRN (15:15)
[2020-09-02] MEDS ORDERED: IBUPROFEN 200MG TABLET PO SCH (15:15)
[2020-09-02 16:00] VITALS: BP 117/43
[2020-09-02 20:00] VITALS: BP 175/81
[2020-09-02] MEDS: ATORVASTATIN CALCIUM 40MG TABLET PO SCH (21:15)
[2020-09-02] MEDS: TRAZODONE HCL 50MG TABLET PO SCH (21:15)
[2020-09-03] VITALS: BP 120/48
[2020-09-03] MEDS: GABAPENTIN 300MG CAPSULE PO SCH ×3 (00:37→11:39)
[2020-09-03] MEDS: POLYVINYL ALCOHOL OPHTH DROPS 15ML BOTHEYE SCH ×3 (00:38→11:40)
[2020-09-03] MEDS: LIDOCAINE HCL 4% CREAM 76GM TUBE TP SCH ×3 (00:38→11:39)
[2020-09-03] MEDS: NITROGLYCERIN OINT 1GM/INCH UDPKT TD SCH ×3 (00:39→11:40)
[2020-09-03 04:00] VITALS: BP 142/49
[2020-09-03 08:00] VITALS: BP 122/56
[2020-09-03 09:22] LABS: BASOPHILS % 1.4 % (0.0-2.0); EOSINOPHILS % 7.5 % (0.0-5.0); HEMATOCRIT. 28.3 % (36.0-48.0); HEMOGLOBIN. 9.3 g/dL (12.0-16.0); MEAN CORPUSCULAR HEMOGLOBIN 29.5 pg (28.0-32.0); MEAN CORPUSCULAR VOLUME 89.8 fL (81.0-99.0); MONOCYTES % 9.3 % (2.0-8.0); NEUTROPHILS % 49.8 % (40.0-76.0); PLATELET 272 x1000/uL (130-400); RED BLOOD CELL COUNT 3.15 mill/uL (4.2-5.4); RED CELL DISTRIBUTION WIDTH 14.4 % (11.6-14.6)
[2020-09-03] MEDS: HEPARIN 5000 UNITS/ML VIAL SUBCUT SCH (09:29)
[2020-09-03] MEDS: CLOPIDOGREL 75MG TABLET PO SCH (09:29)
[2020-09-03] MEDS: ASPIRIN 81MG TABLET PO SCH (09:29)
[2020-09-03] MEDS: METOPROLOL TARTRATE 25MG TABLET PO SCH (09:29)
[2020-09-03] MEDS: CITALOPRAM HYDROBROMIDE 10MG TABLET PO SCH (09:29)
[2020-09-03] MEDS: AMLODIPINE 5MG TABLET PO SCH (09:29)
[2020-09-03] MEDS ORDERED: T3 PO (10:52)
[2020-09-03] MEDS ORDERED: TRAZ-251 PO (10:52)
[2020-09-03] MEDS ORDERED: LIDO76.5 TP (10:52)
[2020-09-03] MEDS ORDERED: ATOR40TA70 MT (10:52)
[2020-09-03] MEDS: ACETAMINOPHEN 325MG TABLET PO PRN (11:39)
[2020-09-03 12:00] VITALS: BP 134/49
[2020-09-03 13:43] VITALS: BP 134/49
[2020-09-03 16:00] VITALS: BP 128/50
== END 2020-09-03 17:20 | disposition home health service (06) | DRG 302 ==
LOC: ER 18:11 → ENRESERV 08-31 09:39 → 5WST 08-31 11:14
PROVIDERS: ADMIT Internal Medicine; ATTEND Internal Medicine
DX: I25.110 Atherosclerotic heart disease of native coronary artery with unstable angina pectoris (principal); I50.33 Acute on chronic diastolic (congestive) heart failure; N17.0 Acute kidney failure with tubular necrosis; I69.351 Hemiplegia and hemiparesis following cerebral infarction affecting right dominant side; R65.10 Systemic inflammatory response syndrome (SIRS) of non-infectious origin without acute organ dysfunction; Z68.1 Body mass index [BMI] 19.9 or less, adult; N17.8 Other acute kidney failure; D64.9 Anemia, unspecified; D72.819 Decreased white blood cell count, unspecified; F32.9 Major depressive disorder, single episode, unspecified; F41.9 Anxiety disorder, unspecified; G62.9 Polyneuropathy, unspecified; I70.0 Atherosclerosis of aorta; I73.9 Peripheral vascular disease, unspecified; I99.8 Other disorder of circulatory system; J44.9 Chronic obstructive pulmonary disease, unspecified; M19.90 Unspecified osteoarthritis, unspecified site; M47.816 Spondylosis without myelopathy or radiculopathy, lumbar region; M50.30 Other cervical disc degeneration, unspecified cervical region; E78.5 Hyperlipidemia, unspecified; R68.89 Other general symptoms and signs; H53.8 Other visual disturbances; G89.0 Central pain syndrome; I11.0 Hypertensive heart disease with heart failure; I27.81 Cor pulmonale (chronic); M48.07 Spinal stenosis, lumbosacral region; I70.1 Atherosclerosis of renal artery; Z20.822 Contact with and (suspected) exposure to COVID-19; M54.32 Sciatica, left side; Z95.5 Presence of coronary angioplasty implant and graft; Z79.02 Long term (current) use of antithrombotics/antiplatelets; Z79.82 Long term (current) use of aspirin; Z79.899 Other long term (current) drug therapy; Z88.2 Allergy status to sulfonamides; Z87.440 Personal history of urinary (tract) infections; R63.0 Anorexia; R33.9 Retention of urine, unspecified
CPT/HCPCS: 36415; 70551; 71045; 80048; 80053; 83735; 83880; 84145; 84484; 85025; 87426; 93005; 93306; 93923; 93971; 97162; 97166; 97530; 97535; 99285; J1644; J2270

== ENCOUNTER 2020-09-09 20:19 | Inpatient (IN) | payer MEDICARE ==
[~2020-09-09] VITALS: Ht 160 cm; Wt 45.8 kg
[~2020-09-09 20:19] MED LIST changes: -ASPI-1406 PO; -ATOR10TA PO; -ATOR20TA PO; +ATOR40TA70 MT; +LIDO76.5 TP; +T3 PO; +TRAZ-251 PO
[2020-09-09] MEDS ORDERED: ASPIRIN 81MG TABLET PO ONE (21:15)
[2020-09-09] MEDS ORDERED: VANCOMYCIN 1 G PREMIX 200 ML IV ONE (21:15)
[2020-09-09] MEDS ORDERED: FUROSEMIDE 40MG/4ML VIAL IV ONE (21:15)
[2020-09-09] MEDS ORDERED: NITROGLYCERIN OINT 1GM/INCH UDPKT TD ONE (21:15)
[2020-09-09] MEDS ORDERED: PIPERACILLIN/TAZ 3.375G PREMIX 50 ML IV ONE (21:15)
[2020-09-09 23:49] LABS: BASOPHILS % 0.9 % (0.0-2.0); EOSINOPHILS % 4.5 % (0.0-5.0); HEMATOCRIT. 32.6 % (36.0-48.0); HEMOGLOBIN. 10.8 g/dL (12.0-16.0); LYMPHOCYTES % 20.9 % (20.0-50.0); MEAN CORPUSCULAR HEMOGLOBIN 29.9 pg (28.0-32.0); MEAN CORPUSCULAR VOLUME 90.1 fL (81.0-99.0); MEAN PLATELET VOLUME 7.7 fl (7.4-10.4); MONOCYTES % 7.4 % (2.0-8.0); NEUTROPHILS % 66.3 % (40.0-76.0); PLATELET 225 x1000/uL (130-400); RED BLOOD CELL COUNT 3.62 mill/uL (4.2-5.4); RED CELL DISTRIBUTION WIDTH 14.9 % (11.6-14.6)
[2020-09-09 23:56] LABS: CHLORIDE 107 mEq/L (98-107)
[2020-09-09 23:59] LABS: INR 1.1; PARTIAL THROMBOPLASTIN TIME 26.5 sec (23.4-31.0); PROTHROMBIN TIME 11.6 sec (9.6-11.0)
[2020-09-10 14:31] VITALS: BP 154/78
[2020-09-10] MEDS ORDERED: ONDANSETRON HCL 4MG/2ML INJ IV PRN (14:45)
[2020-09-10] MEDS ORDERED: TRAZODONE HCL 50MG TABLET PO PRN (14:45)
[2020-09-10] MEDS ORDERED: DOCUSATE SODIUM 100MG CAPSULE PO PRN (14:45)
[2020-09-10] MEDS ORDERED: MAGNESIUM HYDROXIDE 400MG/5ML 30ML UDC PO PRN (14:45)
[2020-09-10] MEDS ORDERED: SENNOSIDES/DOCUSATE SOD 8.6/50MG TABLET PO PRN (14:45)
[2020-09-10] MEDS: CITALOPRAM HYDROBROMIDE 10MG TABLET PO SCH (14:56)
[2020-09-10] MEDS: METOPROLOL TARTRATE 25MG TABLET PO SCH (14:56)
[2020-09-10] MEDS: AMLODIPINE 5MG TABLET PO SCH ×2 (14:56→23:03)
[2020-09-10] MEDS: TRAMADOL 50MG TABLET PO PRN (14:57)
[2020-09-10] MEDS: ACETAMINOPHEN 325MG TABLET PO PRN (15:03)
[2020-09-10 16:00] VITALS: BP 113/32
[2020-09-10] MEDS: GABAPENTIN 300MG CAPSULE PO SCH ×2 (17:04→23:10)
[2020-09-10] MEDS: PENTOXIFYLLINE 400MG TABLET PO SCH (17:04)
[2020-09-10] MEDS: LIDOCAINE HCL 4% CREAM 76GM TUBE TP SCH (17:05)
[2020-09-10 19:51] VITALS: BP 113/32
[2020-09-10 20:00] VITALS: BP 127/49
[2020-09-10] MEDS: HEPARIN 5000 UNITS/ML VIAL SUBCUT SCH (21:00)
[2020-09-10] MEDS: ATORVASTATIN CALCIUM 40MG TABLET PO SCH (23:02)
[2020-09-11] VITALS: BP 139/54
[2020-09-11] MEDS: LIDOCAINE HCL 4% CREAM 76GM TUBE TP SCH ×4 (00:06→18:34)
[2020-09-11 04:00] VITALS: BP 137/53
[2020-09-11] MEDS: GABAPENTIN 300MG CAPSULE PO SCH ×3 (06:38→17:45)
[2020-09-11 07:02] LABS: EOSINOPHILS % 6.1 % (0.0-5.0); HEMATOCRIT. 29.5 % (36.0-48.0); HEMOGLOBIN. 10.1 g/dL (12.0-16.0); LYMPHOCYTES % 19.1 % (20.0-50.0); MEAN CORPUSCULAR VOLUME 90.8 fL (81.0-99.0); MONOCYTES % 8.8 % (2.0-8.0); PLATELET 208 x1000/uL (130-400); RED BLOOD CELL COUNT 3.25 mill/uL (4.2-5.4); RED CELL DISTRIBUTION WIDTH 14.5 % (11.6-14.6)
[2020-09-11 07:13] LABS: CHLORIDE 109 mEq/L (98-107)
[2020-09-11] MEDS: PENTOXIFYLLINE 400MG TABLET PO SCH ×3 (08:41→17:45)
[2020-09-11] MEDS: AMLODIPINE 5MG TABLET PO SCH ×2 (08:41→20:49)
[2020-09-11] MEDS: CLOPIDOGREL 75MG TABLET PO SCH (08:41)
[2020-09-11] MEDS: METOPROLOL TARTRATE 25MG TABLET PO SCH (08:41)
[2020-09-11] MEDS: ASPIRIN 81MG EC TABLET PO SCH (08:41)
[2020-09-11] MEDS: CITALOPRAM HYDROBROMIDE 10MG TABLET PO SCH (08:41)
[2020-09-11] MEDS: HEPARIN 5000 UNITS/ML VIAL SUBCUT SCH ×2 (08:42→20:50)
[2020-09-11] MEDS ORDERED: AMLODIPINE 5MG TABLET PO SCH (09:00)
[2020-09-11 09:11] LABS: CLARITY URINE CLOUDY (CLEAR); COLOR URINE YELLOW (YELLOW); KETONES URINE NEGATIVE (NEGATIVE); LEUKOCYTE ESTERASE URINE 2+ (NEGATIVE); NITRITE URINE NEGATIVE (NEGATIVE); OCCULT BLOOD URINE NEGATIVE (NEGATIVE); PROTEIN URINE NEGATIVE (NEGATIVE); SPECIFIC GRAVITY URINE 1.014 (1.005-1.030); UROBILINOGEN URINE 0.2 E.U./dL (0.2-1.0)
[2020-09-11] MEDS: MEGESTROL ACETATE 400 MG/10 ML UDC PO SCH (11:38)
[2020-09-11] MEDS: TRAMADOL 50MG TABLET PO PRN (11:39)
[2020-09-11 12:00] VITALS: BP 104/33
[2020-09-11 16:00] VITALS: BP 112/37
[2020-09-11 20:00] VITALS: BP 125/48
[2020-09-11] MEDS: ACETAMINOPHEN 325MG TABLET PO PRN (20:48)
[2020-09-11] MEDS: ATORVASTATIN CALCIUM 40MG TABLET PO SCH (20:49)
[2020-09-12] VITALS: BP 114/46
[2020-09-12] MEDS: CEFEPIME 1,000 MG in DEXTROSE 5% WATER 50 ML IV SCH (00:21)
[2020-09-12] MEDS: LIDOCAINE HCL 4% CREAM 76GM TUBE TP SCH ×3 (00:21→17:34)
[2020-09-12] MEDS: TRAMADOL 50MG TABLET PO PRN (00:21)
[2020-09-12] MEDS: GABAPENTIN 300MG CAPSULE PO SCH ×4 (00:21→17:34)
[2020-09-12 04:00] VITALS: BP 119/52
[2020-09-12] MEDS: ACETAMINOPHEN WITH CODEINE 300/30MG TABLET PO PRN ×2 (05:40→22:52)
[2020-09-12 06:38] LABS: BASOPHILS % 0.8 % (0.0-2.0); EOSINOPHILS % 4.9 % (0.0-5.0); HEMATOCRIT. 27.3 % (36.0-48.0); HEMOGLOBIN. 9.3 g/dL (12.0-16.0); MEAN CORPUSCULAR HEMOGLOBIN 30.5 pg (28.0-32.0); MEAN CORPUSCULAR VOLUME 90.2 fL (81.0-99.0); MONOCYTES % 9.2 % (2.0-8.0); NEUTROPHILS % 70.1 % (40.0-76.0); PLATELET 204 x1000/uL (130-400); RED BLOOD CELL COUNT 3.03 mill/uL (4.2-5.4); RED CELL DISTRIBUTION WIDTH 14.7 % (11.6-14.6)
[2020-09-12 07:57] LABS: CHLORIDE 106 mEq/L (98-107)
[2020-09-12 09:29] VITALS: BP 137/53
[2020-09-12] MEDS: MEGESTROL ACETATE 400 MG/10 ML UDC PO SCH (09:31)
[2020-09-12] MEDS: PENTOXIFYLLINE 400MG TABLET PO SCH ×3 (09:31→17:34)
[2020-09-12] MEDS: ASPIRIN 81MG EC TABLET PO SCH (09:31)
[2020-09-12] MEDS: CLOPIDOGREL 75MG TABLET PO SCH (09:31)
[2020-09-12] MEDS: CITALOPRAM HYDROBROMIDE 10MG TABLET PO SCH (09:31)
[2020-09-12] MEDS: AMLODIPINE 5MG TABLET PO SCH ×2 (09:32→22:49)
[2020-09-12] MEDS: HEPARIN 5000 UNITS/ML VIAL SUBCUT SCH ×2 (09:32→22:51)
[2020-09-12] MEDS: METOPROLOL TARTRATE 25MG TABLET PO SCH (09:32)
[2020-09-12 12:00] VITALS: BP 133/50
[2020-09-12 16:00] VITALS: BP 138/50
[2020-09-12 20:00] VITALS: BP 139/56
[2020-09-12] MEDS: ATORVASTATIN CALCIUM 40MG TABLET PO SCH (22:49)
[2020-09-13] VITALS: BP 141/54
[2020-09-13] MEDS: CEFEPIME 1,000 MG in DEXTROSE 5% WATER 50 ML IV SCH (00:05)
[2020-09-13] MEDS: GABAPENTIN 300MG CAPSULE PO SCH ×5 (00:06→23:05)
[2020-09-13] MEDS: LIDOCAINE HCL 4% CREAM 76GM TUBE TP SCH ×5 (00:06→23:06)
[2020-09-13] MEDS: TRAZODONE HCL 50MG TABLET PO PRN ×2 (01:39→23:20)
[2020-09-13 04:00] VITALS: BP 149/59
[2020-09-13 06:52] LABS: BASOPHILS % 0.6 % (0.0-2.0); EOSINOPHILS % 2.2 % (0.0-5.0); HEMATOCRIT. 29.9 % (36.0-48.0); LYMPHOCYTES % 11.8 % (20.0-50.0); MEAN CORPUSCULAR HEMOGLOBIN 30.8 pg (28.0-32.0); MEAN CORPUSCULAR VOLUME 91.8 fL (81.0-99.0); MEAN PLATELET VOLUME 7.6 fl (7.4-10.4); MONOCYTES % 6.2 % (2.0-8.0); NEUTROPHILS % 79.2 % (40.0-76.0); PLATELET 198 x1000/uL (130-400); RED BLOOD CELL COUNT 3.26 mill/uL (4.2-5.4); RED CELL DISTRIBUTION WIDTH 14.5 % (11.6-14.6)
[2020-09-13 07:09] LABS: CHLORIDE 106 mEq/L (98-107)
[2020-09-13] MEDS: MEGESTROL ACETATE 400 MG/10 ML UDC PO SCH (08:51)
[2020-09-13] MEDS: METOPROLOL TARTRATE 25MG TABLET PO SCH (08:52)
[2020-09-13] MEDS: CLOPIDOGREL 75MG TABLET PO SCH (08:52)
[2020-09-13] MEDS: PENTOXIFYLLINE 400MG TABLET PO SCH ×4 (08:52→16:06)
[2020-09-13 08:53] VITALS: BP 122/50
[2020-09-13] MEDS: CITALOPRAM HYDROBROMIDE 10MG TABLET PO SCH (08:53)
[2020-09-13] MEDS: AMLODIPINE 5MG TABLET PO SCH ×2 (08:53→23:06)
[2020-09-13] MEDS: ASPIRIN 81MG EC TABLET PO SCH (08:53)
[2020-09-13] MEDS: HEPARIN 5000 UNITS/ML VIAL SUBCUT SCH ×2 (08:54→23:05)
[2020-09-13 12:00] VITALS: BP 103/47
[2020-09-13 16:00] VITALS: BP 116/51
[2020-09-13] MEDS: ACETAMINOPHEN WITH CODEINE 300/30MG TABLET PO PRN (16:18)
[2020-09-13 20:00] VITALS: BP 111/46
[2020-09-13] MEDS: TRAMADOL 50MG TABLET PO PRN (20:26)
[2020-09-13] MEDS: ATORVASTATIN CALCIUM 40MG TABLET PO SCH (23:05)
[2020-09-14] VITALS (7 sets, daily range): BP systolic 104–124; BP diastolic 38–54
[2020-09-14] MEDS: LORAZEPAM 1MG TABLET PO PRN ×2 (01:15→22:11)
[2020-09-14] MEDS: LIDOCAINE HCL 4% CREAM 76GM TUBE TP SCH ×4 (06:15→23:02)
[2020-09-14] MEDS: GABAPENTIN 300MG CAPSULE PO SCH ×4 (06:15→23:04)
[2020-09-14 06:43] LABS: CHLORIDE 109 mEq/L (98-107)
[2020-09-14 06:44] LABS: EOSINOPHILS % 3.8 % (0.0-5.0); HEMATOCRIT. 25.4 % (36.0-48.0); HEMOGLOBIN. 8.7 g/dL (12.0-16.0); MEAN CORPUSCULAR HEMOGLOBIN 30.8 pg (28.0-32.0); MEAN PLATELET VOLUME 7.9 fl (7.4-10.4); MONOCYTES % 8.1 % (2.0-8.0); NEUTROPHILS % 73.1 % (40.0-76.0); PLATELET 199 x1000/uL (130-400); RED BLOOD CELL COUNT 2.83 mill/uL (4.2-5.4); RED CELL DISTRIBUTION WIDTH 14.7 % (11.6-14.6)
[2020-09-14] MEDS: ASPIRIN 81MG EC TABLET PO SCH (08:57)
[2020-09-14] MEDS: HEPARIN 5000 UNITS/ML VIAL SUBCUT SCH ×2 (08:57→22:02)
[2020-09-14] MEDS: MEGESTROL ACETATE 400 MG/10 ML UDC PO SCH (08:57)
[2020-09-14] MEDS: CLOPIDOGREL 75MG TABLET PO SCH (08:58)
[2020-09-14] MEDS: AMLODIPINE 5MG TABLET PO SCH ×2 (08:58→22:02)
[2020-09-14] MEDS: METOPROLOL TARTRATE 25MG TABLET PO SCH (08:58)
[2020-09-14] MEDS: PENTOXIFYLLINE 400MG TABLET PO SCH ×3 (08:58→17:33)
[2020-09-14] MEDS: CITALOPRAM HYDROBROMIDE 10MG TABLET PO SCH (08:58)
[2020-09-14] MEDS: ATORVASTATIN CALCIUM 40MG TABLET PO SCH (22:02)
[2020-09-15] VITALS: BP 127/45
[2020-09-15] MEDS: LIDOCAINE HCL 4% CREAM 76GM TUBE TP SCH ×4 (06:03→23:19)
[2020-09-15] MEDS: GABAPENTIN 300MG CAPSULE PO SCH ×4 (06:03→23:18)
[2020-09-15 08:12] VITALS: BP 131/51
[2020-09-15 08:36] LABS: CHLORIDE 111 mEq/L (98-107)
[2020-09-15] MEDS: ACETAMINOPHEN 325MG TABLET PO PRN ×2 (08:55→17:47)
[2020-09-15] MEDS: METOPROLOL TARTRATE 25MG TABLET PO SCH (08:55)
[2020-09-15] MEDS: CITALOPRAM HYDROBROMIDE 10MG TABLET PO SCH (08:55)
[2020-09-15] MEDS: TRAMADOL 50MG TABLET PO PRN (08:55)
[2020-09-15] MEDS: AMLODIPINE 5MG TABLET PO SCH ×2 (08:56→21:42)
[2020-09-15] MEDS: CLOPIDOGREL 75MG TABLET PO SCH (08:56)
[2020-09-15] MEDS: ASPIRIN 81MG EC TABLET PO SCH (08:56)
[2020-09-15] MEDS: HEPARIN 5000 UNITS/ML VIAL SUBCUT SCH ×2 (08:58→21:43)
[2020-09-15] MEDS: MEGESTROL ACETATE 400 MG/10 ML UDC PO SCH (09:00)
[2020-09-15] MEDS: PENTOXIFYLLINE 400MG TABLET PO SCH ×3 (09:00→17:47)
[2020-09-15 09:11] LABS: BASOPHILS % 0.7 % (0.0-2.0); EOSINOPHILS % 4.2 % (0.0-5.0); HEMATOCRIT. 24.4 % (36.0-48.0); HEMOGLOBIN. 8.3 g/dL (12.0-16.0); LYMPHOCYTES % 15.7 % (20.0-50.0); MEAN CORPUSCULAR HEMOGLOBIN 30.7 pg (28.0-32.0); MEAN CORPUSCULAR VOLUME 90.4 fL (81.0-99.0); MEAN PLATELET VOLUME 7.9 fl (7.4-10.4); MONOCYTES % 9.2 % (2.0-8.0); NEUTROPHILS % 70.2 % (40.0-76.0); PLATELET 211 x1000/uL (130-400); RED CELL DISTRIBUTION WIDTH 14.5 % (11.6-14.6)
[2020-09-15 12:03] VITALS: BP 114/42
[2020-09-15 16:17] VITALS: BP 151/52
[2020-09-15 20:38] VITALS: BP 132/49
[2020-09-15] MEDS: ATORVASTATIN CALCIUM 40MG TABLET PO SCH (21:40)
[2020-09-15] MEDS: TRAZODONE HCL 50MG TABLET PO PRN (23:19)
[2020-09-16 00:38] VITALS: BP 139/48
[2020-09-16 04:00] VITALS: BP 136/52
[2020-09-16] MEDS: ACETAMINOPHEN 325MG TABLET PO PRN ×2 (04:19→21:48)
[2020-09-16] MEDS: GABAPENTIN 300MG CAPSULE PO SCH ×3 (05:42→18:27)
[2020-09-16] MEDS: LIDOCAINE HCL 4% CREAM 76GM TUBE TP SCH ×3 (05:42→18:27)
[2020-09-16 08:40] VITALS: BP 121/48
[2020-09-16] MEDS: CLOPIDOGREL 75MG TABLET PO SCH (09:44)
[2020-09-16] MEDS: METOPROLOL TARTRATE 25MG TABLET PO SCH (09:45)
[2020-09-16] MEDS: CITALOPRAM HYDROBROMIDE 10MG TABLET PO SCH (09:45)
[2020-09-16] MEDS: MEGESTROL ACETATE 400 MG/10 ML UDC PO SCH (09:45)
[2020-09-16] MEDS: PENTOXIFYLLINE 400MG TABLET PO SCH ×3 (09:45→18:27)
[2020-09-16] MEDS: AMLODIPINE 5MG TABLET PO SCH ×2 (09:45→22:06)
[2020-09-16] MEDS: ASPIRIN 81MG EC TABLET PO SCH (09:45)
[2020-09-16] MEDS: HEPARIN 5000 UNITS/ML VIAL SUBCUT SCH ×2 (09:47→21:48)
[2020-09-16 12:00] VITALS: BP 133/53
[2020-09-16] MEDS ORDERED: LORAZEPAM 1MG TABLET PO PRN (12:15)
[2020-09-16] MEDS: ACETAMINOPHEN WITH CODEINE 300/30MG TABLET PO PRN (12:53)
[2020-09-16] MEDS ORDERED: NITROGLYCERIN 0.4MG TABLET SL SL PRN (14:00)
[2020-09-16 16:00] VITALS: BP 131/47
[2020-09-16 20:33] VITALS: BP 132/61
[2020-09-16] MEDS ORDERED: SODIUM CHLORIDE 0.9% 500 ML IV ONE (21:00)
[2020-09-16] MEDS: ATORVASTATIN CALCIUM 40MG TABLET PO SCH (21:47)
[2020-09-16] MEDS: TRAZODONE HCL 50MG TABLET PO PRN (22:06)
[2020-09-16] MEDS: TRAMADOL 50MG TABLET PO PRN (22:49)
[2020-09-16] MEDS ORDERED: IOHEXOL-300 100 ML BOTTLE ONE (23:11)
[2020-09-17] VITALS: BP 133/48
[2020-09-17] MEDS: LIDOCAINE HCL 4% CREAM 76GM TUBE TP SCH ×5 (01:04→23:09)
[2020-09-17] MEDS: GABAPENTIN 300MG CAPSULE PO SCH ×5 (01:04→23:08)
[2020-09-17] MEDS: ACETAMINOPHEN WITH CODEINE 300/30MG TABLET PO PRN (03:04)
[2020-09-17] MEDS: PIPERACILLIN/TAZOBACTAM 2.25 G in DEXTROSE 5% WATER 50 ML IV SCH ×4 (03:35→22:05)
[2020-09-17 04:00] VITALS: BP 141/47
[2020-09-17] MEDS ORDERED: PIPERACILLIN/TAZOBACTAM 3.375 G/VIAL IV SCH (06:00)
[2020-09-17 06:23] LABS: BASOPHILS % 1.3 % (0.0-2.0); HEMATOCRIT. 27.3 % (36.0-48.0); HEMOGLOBIN. 9.1 g/dL (12.0-16.0); LYMPHOCYTES % 18.2 % (20.0-50.0); MEAN CORPUSCULAR HEMOGLOBIN 30.3 pg (28.0-32.0); MEAN CORPUSCULAR VOLUME 91.2 fL (81.0-99.0); MEAN PLATELET VOLUME 7.7 fl (7.4-10.4); MONOCYTES % 13.8 % (2.0-8.0); NEUTROPHILS % 63.7 % (40.0-76.0); PLATELET 267 x1000/uL (130-400); RED BLOOD CELL COUNT 2.99 mill/uL (4.2-5.4)
[2020-09-17 07:39] LABS: CHLORIDE 113 mEq/L (98-107)
[2020-09-17 08:00] VITALS: BP 140/57
[2020-09-17] MEDS: PENTOXIFYLLINE 400MG TABLET PO SCH ×3 (08:24→17:09)
[2020-09-17] MEDS: ASPIRIN 81MG EC TABLET PO SCH (08:24)
[2020-09-17] MEDS: TRAMADOL 50MG TABLET PO PRN ×2 (08:24→23:21)
[2020-09-17] MEDS: CLOPIDOGREL 75MG TABLET PO SCH (08:24)
[2020-09-17] MEDS: ACETAMINOPHEN 325MG TABLET PO PRN ×2 (08:24→22:04)
[2020-09-17] MEDS: CITALOPRAM HYDROBROMIDE 10MG TABLET PO SCH (08:24)
[2020-09-17] MEDS: AMLODIPINE 5MG TABLET PO SCH ×2 (08:24→21:55)
[2020-09-17] MEDS: METOPROLOL TARTRATE 25MG TABLET PO SCH (08:25)
[2020-09-17] MEDS: HEPARIN 5000 UNITS/ML VIAL SUBCUT SCH ×2 (08:25→21:55)
[2020-09-17 12:00] VITALS: BP 116/47
[2020-09-17 16:00] VITALS: BP 116/48
[2020-09-17 20:00] VITALS: BP 137/53
[2020-09-17] MEDS: ATORVASTATIN CALCIUM 40MG TABLET PO SCH (21:55)
[2020-09-17] MEDS: TRAZODONE HCL 50MG TABLET PO PRN (22:04)
[2020-09-18 00:26] VITALS: BP 120/50
[2020-09-18] MEDS: PIPERACILLIN/TAZOBACTAM 2.25 G in DEXTROSE 5% WATER 50 ML IV SCH ×2 (02:43→08:47)
[2020-09-18 04:00] VITALS: BP 130/49
[2020-09-18] MEDS: GABAPENTIN 300MG CAPSULE PO SCH ×2 (05:33→12:50)
[2020-09-18] MEDS: LIDOCAINE HCL 4% CREAM 76GM TUBE TP SCH ×2 (05:34→12:50)
[2020-09-18 08:01] VITALS: BP 124/45
[2020-09-18] MEDS: CITALOPRAM HYDROBROMIDE 10MG TABLET PO SCH (08:46)
[2020-09-18] MEDS: CLOPIDOGREL 75MG TABLET PO SCH (08:46)
[2020-09-18] MEDS: PENTOXIFYLLINE 400MG TABLET PO SCH ×2 (08:47→12:50)
[2020-09-18] MEDS: ASPIRIN 81MG EC TABLET PO SCH (08:47)
[2020-09-18] MEDS: AMLODIPINE 5MG TABLET PO SCH (08:48)
[2020-09-18] MEDS: HEPARIN 5000 UNITS/ML VIAL SUBCUT SCH (08:48)
[2020-09-18] MEDS: METOPROLOL TARTRATE 25MG TABLET PO SCH (08:49)
[2020-09-18 11:42] VITALS: BP 124/42
[2020-09-18 12:56] VITALS: BP 124/42
== END 2020-09-18 14:15 | DRG 871 ==
LOC: ER 20:19 → 7WST 09-10 01:25 → EDBEDREQ 09-10 01:32 → ENRESERV 09-10 10:48 → 6WST 09-12 03:06
PROVIDERS: ADMIT Specialist; ATTEND Specialist
DX: A41.9 Sepsis, unspecified organism (principal); G82.50 Quadriplegia, unspecified; I25.110 Atherosclerotic heart disease of native coronary artery with unstable angina pectoris; N17.9 Acute kidney failure, unspecified; I69.353 Hemiplegia and hemiparesis following cerebral infarction affecting right non-dominant side; Z68.1 Body mass index [BMI] 19.9 or less, adult; I50.30 Unspecified diastolic (congestive) heart failure; M54.32 Sciatica, left side; M19.90 Unspecified osteoarthritis, unspecified site; G62.9 Polyneuropathy, unspecified; I73.9 Peripheral vascular disease, unspecified; I99.8 Other disorder of circulatory system; R63.0 Anorexia; D72.819 Decreased white blood cell count, unspecified; F32.9 Major depressive disorder, single episode, unspecified; F41.9 Anxiety disorder, unspecified; M48.00 Spinal stenosis, site unspecified; D63.8 Anemia in other chronic diseases classified elsewhere; E78.00 Pure hypercholesterolemia, unspecified; E78.5 Hyperlipidemia, unspecified; G89.4 Chronic pain syndrome; I15.0 Renovascular hypertension; I27.81 Cor pulmonale (chronic); M54.5 Low back pain; M50.820 Other cervical disc disorders, mid-cervical region, unspecified level; R68.89 Other general symptoms and signs; H53.8 Other visual disturbances; M16.0 Bilateral primary osteoarthritis of hip; J44.9 Chronic obstructive pulmonary disease, unspecified; R53.81 Other malaise; I70.0 Atherosclerosis of aorta; I70.1 Atherosclerosis of renal artery; M48.061 Spinal stenosis, lumbar region without neurogenic claudication; I11.0 Hypertensive heart disease with heart failure; Z20.822 Contact with and (suspected) exposure to COVID-19; Z79.02 Long term (current) use of antithrombotics/antiplatelets; Z79.82 Long term (current) use of aspirin; Z79.899 Other long term (current) drug therapy; Z95.5 Presence of coronary angioplasty implant and graft; Z88.2 Allergy status to sulfonamides; Z88.0 Allergy status to penicillin; I25.2 Old myocardial infarction; R82.71 Bacteriuria; Z87.440 Personal history of urinary (tract) infections
CPT/HCPCS: 36415; 71045; 73206; 74177; 80053; 81003; 83605; 83735; 83880; 84145; 84484; 85025; 87077; 87186; 87635; 93005; 96365; 97116; 97162; 97166; 97535; 99285; A6261; J0692; J1644; J1940; J2405; J2543; J3370; J7040; J7060; Q9967

== ENCOUNTER 2020-12-03 12:40 | Inpatient (IN) | payer MEDICARE ==
[~2020-12-03] VITALS: Ht 342.9 cm; Wt 45.0 kg
[2020-12-03 14:16] LABS: EOSINOPHILS % 1.4 % (0.0-5.0); HEMATOCRIT. 30.7 % (36.0-48.0); HEMOGLOBIN. 10.3 g/dL (12.0-16.0); LYMPHOCYTES % 33.5 % (20.0-50.0); MEAN CORPUSCULAR HEMOGLOBIN 30.4 pg (28.0-32.0); MEAN CORPUSCULAR VOLUME 90.9 fL (81.0-99.0); MEAN PLATELET VOLUME 7.8 fl (7.4-10.4); MONOCYTES % 10.7 % (2.0-8.0); NEUTROPHILS % 53.4 % (40.0-76.0); PLATELET 199 x1000/uL (130-400); RED BLOOD CELL COUNT 3.38 mill/uL (4.2-5.4); RED CELL DISTRIBUTION WIDTH 14.1 % (11.6-14.6)
[2020-12-03 14:29] LABS: CHLORIDE 106 mEq/L (98-107)
[2020-12-03] MEDS ORDERED: MORPHINE SULFATE 2 MG/ML CPJ (NOT FOR IM USE) IV ONE ×2 (14:30→17:30)
[2020-12-03] MEDS ORDERED: NA PHOS,M-B/NA PHOS,DI-BA ENEMA 118ML PR PRN (20:30)
[2020-12-03] MEDS ORDERED: ACETAMINOPHEN 650MG SUPP PR PRN (20:30)
[2020-12-03] MEDS ORDERED: DOCUSATE SODIUM 100MG CAPSULE PO PRN (20:30)
[2020-12-03] MEDS ORDERED: MAGNESIUM/ALUMINUM HYDROXIDE/SIMETHICONE 30ML UDC PO PRN (20:30)
[2020-12-03] MEDS ORDERED: LORAZEPAM 0.5MG TABLET PO PRN (20:30)
[2020-12-03] MEDS ORDERED: GUAIFENESIN 200MG/10ML SUGAR FREE UDC PO PRN (20:30)
[2020-12-03] MEDS ORDERED: IPRATROPIUM/ALBUTEROL 0.5-3(2.5)MG/3ML NEB HHN PRN (20:30)
[2020-12-03] MEDS ORDERED: DIPHENHYDRAMINE 50MG/ML VIAL IV PRN (20:30)
[2020-12-03] MEDS ORDERED: CLONIDINE 0.1MG TABLET PO PRN (20:30)
[2020-12-03] MEDS ORDERED: ONDANSETRON HCL 4MG/2ML INJ IV PRN (20:30)
[2020-12-03] MEDS ORDERED: IOHEXOL-300 100 ML BOTTLE ONE (20:52)
[2020-12-03] MEDS: MORPHINE SULFATE 2 MG/ML CPJ (NOT FOR IM USE) IV PRN (21:21)
[2020-12-03] MEDS: AMLODIPINE 10MG TABLET PO SCH (21:21)
[2020-12-03] MEDS ORDERED: MORPHINE SULFATE 4 MG/ML CPJ (NOT FOR IM USE) IV NR (21:30)
[2020-12-03 21:46] VITALS: BP 205/82
[2020-12-03] MEDS ORDERED: NA PHOS,M-B/NA PHOS,DI-BA ENEMA 118ML PR NR (22:00)
[2020-12-03] MEDS ORDERED: HYDRALAZINE 20MG/ML VIAL IV PRN (22:30)
[2020-12-03] MEDS: KETOROLAC 15MG/ML VIAL IV PRN (23:50)
[2020-12-04] VITALS: BP_SYST 157; BP_SYST 205; BP_DIAS 60; BP_DIAS 65
[2020-12-04] MEDS: ACETAMINOPHEN 325MG TABLET PO PRN ×2 (01:03→22:09)
[2020-12-04] MEDS: MORPHINE SULFATE 2 MG/ML CPJ (NOT FOR IM USE) IV PRN ×5 (01:19→19:35)
[2020-12-04 04:00] VITALS: BP 121/48
[2020-12-04 07:17] LABS: BASOPHILS % 1.1 % (0.0-2.0); EOSINOPHILS % 3.2 % (0.0-5.0); HEMOGLOBIN. 10.3 g/dL (12.0-16.0); LYMPHOCYTES % 35.5 % (20.0-50.0); MEAN CORPUSCULAR HEMOGLOBIN 29.9 pg (28.0-32.0); MEAN CORPUSCULAR VOLUME 89.7 fL (81.0-99.0); MEAN PLATELET VOLUME 7.8 fl (7.4-10.4); MONOCYTES % 10.3 % (2.0-8.0); NEUTROPHILS % 49.9 % (40.0-76.0); PLATELET 221 x1000/uL (130-400); RED BLOOD CELL COUNT 3.45 mill/uL (4.2-5.4)
[2020-12-04 07:33] LABS: CHLORIDE 104 mEq/L (98-107)
[2020-12-04 07:48] LABS: LDL CHOLESTEROL 63 mg/dL (5-100)
[2020-12-04 07:49] LABS: HDL CHOLESTEROL 59 mg/dL (40-59)
[2020-12-04 08:00] VITALS: BP 122/52
[2020-12-04 09:19] LABS: INR 1.1; PARTIAL THROMBOPLASTIN TIME 23.4 sec (23.4-31.0); PROTHROMBIN TIME 11.4 sec (9.6-11.0)
[2020-12-04] MEDS: ASPIRIN 325MG EC TABLET PO SCH (10:29)
[2020-12-04] MEDS: AMLODIPINE 10MG TABLET PO SCH (10:29)
[2020-12-04 12:00] VITALS: BP 126/45
[2020-12-04] MEDS ORDERED: NA PHOS,M-B/NA PHOS,DI-BA ENEMA 118ML PR NR (12:45)
[2020-12-04] MEDS ORDERED: SORBITOL 70% SOLN 30ML PO NR (12:45)
[2020-12-04] MEDS ORDERED: BISACODYL 5MG TABLET PO NR (12:45)
[2020-12-04] MEDS: DEXT 5%/0.45% NACL 1000ML 1,000 ML IV SCH (15:02)
[2020-12-04 16:00] VITALS: BP 123/49
[2020-12-04 20:00] VITALS: BP 135/54
[2020-12-05] VITALS: BP 128/70
[2020-12-05] MEDS: MORPHINE SULFATE 2 MG/ML CPJ (NOT FOR IM USE) IV PRN ×4 (00:21→13:55)
[2020-12-05] MEDS: DEXT 5%/0.45% NACL 1000ML 1,000 ML IV SCH ×2 (02:05→15:25)
[2020-12-05 04:00] VITALS: BP 131/58
[2020-12-05 08:00] VITALS: BP 146/63
[2020-12-05] MEDS: AMLODIPINE 10MG TABLET PO SCH (08:54)
[2020-12-05] MEDS: ASPIRIN 325MG EC TABLET PO SCH (08:54)
[2020-12-05] MEDS: CLOPIDOGREL 75MG TABLET PO SCH (08:54)
[2020-12-05] MEDS: CITALOPRAM HYDROBROMIDE 10MG TABLET PO SCH (08:54)
[2020-12-05] MEDS: GABAPENTIN 100MG CAPSULE PO SCH ×3 (08:55→16:59)
[2020-12-05 12:00] VITALS: BP 147/53
[2020-12-05 16:00] VITALS: BP 122/52
[2020-12-05] MEDS: DOCUSATE SODIUM 100MG CAPSULE PO SCH ×2 (16:59→17:00)
[2020-12-05] MEDS: CALCIUM CARBONATE 500MG TABLET CHEW PO SCH (16:59)
[2020-12-05 17:07] LABS: BASOPHILS % 0.8 % (0.0-2.0); EOSINOPHILS % 2.1 % (0.0-5.0); HEMATOCRIT. 29.8 % (36.0-48.0); HEMOGLOBIN. 10.1 g/dL (12.0-16.0); LYMPHOCYTES % 23.6 % (20.0-50.0); MEAN CORPUSCULAR HEMOGLOBIN 30.3 pg (28.0-32.0); MEAN CORPUSCULAR VOLUME 89.5 fL (81.0-99.0); MEAN PLATELET VOLUME 7.7 fl (7.4-10.4); MONOCYTES % 8.5 % (2.0-8.0); PLATELET 222 x1000/uL (130-400); RED BLOOD CELL COUNT 3.33 mill/uL (4.2-5.4); RED CELL DISTRIBUTION WIDTH 13.9 % (11.6-14.6)
[2020-12-05 17:24] LABS: CHLORIDE 106 mEq/L (98-107)
[2020-12-05 20:00] VITALS: BP 138/55
[2020-12-05] MEDS: TRAMADOL 50MG TABLET PO PRN (20:05)
[2020-12-05] MEDS: SENNOSIDES/DOCUSATE SOD 8.6/50MG TABLET PO SCH (21:00)
[2020-12-06] VITALS: BP 128/60
[2020-12-06] MEDS: TRAMADOL 50MG TABLET PO PRN ×3 (02:37→21:43)
[2020-12-06 04:00] VITALS: BP 112/59
[2020-12-06 05:21] LABS: CHLORIDE 104 mEq/L (98-107)
[2020-12-06] MEDS: DEXT 5%/0.45% NACL 1000ML 1,000 ML IV SCH ×2 (05:55→16:08)
[2020-12-06 06:10] LABS: EOSINOPHILS % 4.5 % (0.0-5.0); HEMATOCRIT. 26.5 % (36.0-48.0); HEMOGLOBIN. 8.8 g/dL (12.0-16.0); LYMPHOCYTES % 29.5 % (20.0-50.0); MEAN CORPUSCULAR HEMOGLOBIN 30.3 pg (28.0-32.0); MEAN CORPUSCULAR VOLUME 90.7 fL (81.0-99.0); MEAN PLATELET VOLUME 8.1 fl (7.4-10.4); MONOCYTES % 8.5 % (2.0-8.0); NEUTROPHILS % 56.5 % (40.0-76.0); PLATELET 180 x1000/uL (130-400); RED BLOOD CELL COUNT 2.92 mill/uL (4.2-5.4); RED CELL DISTRIBUTION WIDTH 13.7 % (11.6-14.6)
[2020-12-06 08:00] VITALS: BP 131/55
[2020-12-06] MEDS: CALCIUM CARBONATE 500MG TABLET CHEW PO SCH ×3 (08:47→17:03)
[2020-12-06] MEDS: AMLODIPINE 10MG TABLET PO SCH (08:47)
[2020-12-06] MEDS: ASPIRIN 325MG EC TABLET PO SCH (08:47)
[2020-12-06] MEDS: DOCUSATE SODIUM 100MG CAPSULE PO SCH ×2 (08:47→17:03)
[2020-12-06] MEDS: CITALOPRAM HYDROBROMIDE 10MG TABLET PO SCH (08:47)
[2020-12-06] MEDS: CLOPIDOGREL 75MG TABLET PO SCH (08:47)
[2020-12-06] MEDS: GABAPENTIN 100MG CAPSULE PO SCH ×3 (08:48→17:03)
[2020-12-06] MEDS: POLYETHYLENE GLYCOL 3350 (17GM) 1 DOSE PACK PO SCH ×2 (08:58→09:00)
[2020-12-06 12:00] VITALS: BP 128/52
[2020-12-06 16:00] VITALS: BP 114/64
[2020-12-06] MEDS: DICYCLOMINE HCL 10MG CAPSULE PO SCH ×2 (18:00→21:54)
[2020-12-06 20:00] VITALS: BP 130/80
[2020-12-06] MEDS: SENNOSIDES/DOCUSATE SOD 8.6/50MG TABLET PO SCH (21:43)
[2020-12-07] VITALS: BP 138/80
[2020-12-07] MEDS: KETOROLAC 15MG/ML VIAL IV PRN ×3 (03:56→15:54)
[2020-12-07 04:00] VITALS: BP 118/53
[2020-12-07 06:26] LABS: BASOPHILS % 1.1 % (0.0-2.0); EOSINOPHILS % 4.3 % (0.0-5.0); HEMOGLOBIN. 8.4 g/dL (12.0-16.0); LYMPHOCYTES % 23.6 % (20.0-50.0); MEAN CORPUSCULAR HEMOGLOBIN 30.6 pg (28.0-32.0); MEAN CORPUSCULAR VOLUME 90.4 fL (81.0-99.0); MEAN PLATELET VOLUME 7.7 fl (7.4-10.4); MONOCYTES % 9.6 % (2.0-8.0); NEUTROPHILS % 61.4 % (40.0-76.0); PLATELET 167 x1000/uL (130-400); RED BLOOD CELL COUNT 2.76 mill/uL (4.2-5.4); RED CELL DISTRIBUTION WIDTH 14.1 % (11.6-14.6)
[2020-12-07 06:45] LABS: CHLORIDE 105 mEq/L (98-107)
[2020-12-07 08:00] VITALS: BP 103/45
[2020-12-07] MEDS: AMLODIPINE 10MG TABLET PO SCH (09:00)
[2020-12-07] MEDS ORDERED: MULTIVITAMINS,THER W-MINERALS TABLET PO SCH (09:00)
[2020-12-07] MEDS: DOCUSATE SODIUM 100MG CAPSULE PO SCH ×2 (09:31→16:14)
[2020-12-07] MEDS: ASPIRIN 325MG EC TABLET PO SCH (09:31)
[2020-12-07] MEDS: DEXT 5%/0.45% NACL 1000ML 1,000 ML IV SCH (09:31)
[2020-12-07] MEDS: DICYCLOMINE HCL 10MG CAPSULE PO SCH ×2 (09:31→12:50)
[2020-12-07] MEDS: POLYETHYLENE GLYCOL 3350 (17GM) 1 DOSE PACK PO SCH (09:32)
[2020-12-07] MEDS: CLOPIDOGREL 75MG TABLET PO SCH (09:32)
[2020-12-07] MEDS: CALCIUM CARBONATE 500MG TABLET CHEW PO SCH ×2 (09:32→12:50)
[2020-12-07] MEDS: CITALOPRAM HYDROBROMIDE 10MG TABLET PO SCH (09:32)
[2020-12-07] MEDS: GABAPENTIN 100MG CAPSULE PO SCH ×3 (09:32→16:15)
[2020-12-07 12:00] VITALS: BP 126/52
[2020-12-07] MEDS: TRAMADOL 50MG TABLET PO PRN (12:50)
[2020-12-07 14:23] LABS: CLARITY URINE CLEAR (CLEAR); COLOR URINE YELLOW (YELLOW); KETONES URINE NEGATIVE (NEGATIVE); LEUKOCYTE ESTERASE URINE TRACE (NEGATIVE); NITRITE URINE NEGATIVE (NEGATIVE); OCCULT BLOOD URINE NEGATIVE (NEGATIVE); PH URINE 5.5 (4.5-8.0); PROTEIN URINE NEGATIVE (NEGATIVE); SPECIFIC GRAVITY URINE 1.006 (1.005-1.030); UROBILINOGEN URINE 0.2 E.U./dL (0.2-1.0)
[2020-12-07 15:22] VITALS: BP 126/52
[2020-12-07 16:00] VITALS: BP 144/54
[2020-12-07] MEDS: ACETAMINOPHEN 325MG TABLET PO PRN (16:15)
== END 2020-12-07 17:10 | DRG 389 ==
LOC: ER 12:40 → 8WST 18:54 → ENRESERV 20:49
PROVIDERS: ADMIT Family Medicine Adult Medicine; ATTEND Family Medicine Adult Medicine
DX: K56.41 Fecal impaction (principal); E46 Unspecified protein-calorie malnutrition; G81.91 Hemiplegia, unspecified affecting right dominant side; N39.0 Urinary tract infection, site not specified; Z68.1 Body mass index [BMI] 19.9 or less, adult; D63.8 Anemia in other chronic diseases classified elsewhere; E78.00 Pure hypercholesterolemia, unspecified; E78.5 Hyperlipidemia, unspecified; F41.9 Anxiety disorder, unspecified; G89.4 Chronic pain syndrome; I15.0 Renovascular hypertension; I25.10 Atherosclerotic heart disease of native coronary artery without angina pectoris; I25.2 Old myocardial infarction; I27.81 Cor pulmonale (chronic); I70.1 Atherosclerosis of renal artery; J44.9 Chronic obstructive pulmonary disease, unspecified; M51.9 Unspecified thoracic, thoracolumbar and lumbosacral intervertebral disc disorder; Z86.73 Personal history of transient ischemic attack (TIA), and cerebral infarction without residual deficits; Z88.2 Allergy status to sulfonamides; Z95.5 Presence of coronary angioplasty implant and graft; M17.0 Bilateral primary osteoarthritis of knee; M16.0 Bilateral primary osteoarthritis of hip; M48.061 Spinal stenosis, lumbar region without neurogenic claudication; Z74.01 Bed confinement status; Z79.82 Long term (current) use of aspirin
CPT/HCPCS: 36415; 71045; 74177; 80048; 80053; 80061; 81003; 82270; 83735; 83880; 84100; 84443; 84484; 85025; 93005; 93306; 93970; 97116; 97161; 97166; 99285; C1893; J1885; J2270; J2405; Q9967

== ENCOUNTER 2020-12-07 17:46 | Inpatient (IN) | payer MEDICARE ==
[~2020-12-07] VITALS: Ht 157.5 cm; Wt 44.9 kg
[2020-12-07 17:30] VITALS: BP 168/50
[2020-12-07] MEDS ORDERED: ONDANSETRON HCL 4MG TABLET PO PRN (18:30)
[2020-12-07] MEDS ORDERED: CLONIDINE 0.1MG TABLET PO PRN (18:30)
[2020-12-07] MEDS ORDERED: SENNOSIDES/DOCUSATE SOD 8.6/50MG TABLET PO PRN (18:30)
[2020-12-07] MEDS ORDERED: KETOROLAC 10MG TABLET PO PRN (18:30)
[2020-12-07] MEDS ORDERED: GUAIFENESIN-DM 200MG-20MG/10ML UDC PO PRN (18:30)
[2020-12-07] MEDS ORDERED: ACETAMINOPHEN 650MG SUPP PR PRN (18:30)
[2020-12-07] MEDS ORDERED: ACETAMINOPHEN 325MG TABLET PO PRN ×2 (18:30→20:45)
[2020-12-07] MEDS ORDERED: HYDRALAZINE HCL 10MG TABLET PO PRN (18:30)
[2020-12-07] MEDS ORDERED: IPRATROPIUM/ALBUTEROL 0.5-3(2.5)MG/3ML NEB HHN PRN (18:30)
[2020-12-07] MEDS ORDERED: MAGNESIUM/ALUMINUM HYDROXIDE/SIMETHICONE 30ML UDC PO PRN (18:30)
[2020-12-07] MEDS ORDERED: NA PHOS,M-B/NA PHOS,DI-BA ENEMA 118ML PR PRN (18:30)
[2020-12-07 20:00] VITALS: BP 141/51
[2020-12-07] MEDS: TRAMADOL 50MG TABLET PO PRN (21:59)
[2020-12-07] MEDS: LORAZEPAM 0.5MG TABLET PO PRN (23:21)
[2020-12-08] MEDS: TRAMADOL 50MG TABLET PO PRN ×2 (04:16→11:10)
[2020-12-08 07:02] LABS: BASOPHILS % 0.8 % (0.0-2.0); HEMATOCRIT. 25.9 % (36.0-48.0); HEMOGLOBIN. 8.7 g/dL (12.0-16.0); LYMPHOCYTES % 21.2 % (20.0-50.0); MEAN CORPUSCULAR HEMOGLOBIN 30.3 pg (28.0-32.0); MEAN CORPUSCULAR VOLUME 90.2 fL (81.0-99.0); MEAN PLATELET VOLUME 7.8 fl (7.4-10.4); MONOCYTES % 9.5 % (2.0-8.0); NEUTROPHILS % 62.5 % (40.0-76.0); PLATELET 169 x1000/uL (130-400); RED BLOOD CELL COUNT 2.87 mill/uL (4.2-5.4); RED CELL DISTRIBUTION WIDTH 13.9 % (11.6-14.6)
[2020-12-08 07:11] LABS: CHLORIDE 107 mEq/L (98-107)
[2020-12-08 08:00] VITALS: BP 152/48
[2020-12-08] MEDS: GABAPENTIN 100MG CAPSULE PO SCH ×3 (09:00→17:18)
[2020-12-08] MEDS: CITALOPRAM HYDROBROMIDE 10MG TABLET PO SCH (09:00)
[2020-12-08] MEDS: DOCUSATE SODIUM 100MG CAPSULE PO SCH ×2 (09:00→17:19)
[2020-12-08] MEDS: ASPIRIN 325MG EC TABLET PO SCH (09:00)
[2020-12-08] MEDS: MULTIVITAMINS,THER W-MINERALS TABLET PO SCH (09:00)
[2020-12-08] MEDS: CALCIUM CARBONATE 500MG TABLET CHEW PO SCH ×3 (09:01→17:18)
[2020-12-08] MEDS: POLYETHYLENE GLYCOL 3350 (17GM) 1 DOSE PACK PO SCH (09:01)
[2020-12-08] MEDS: AMLODIPINE 10MG TABLET PO SCH (09:01)
[2020-12-08] MEDS: CLOPIDOGREL 75MG TABLET PO SCH (09:01)
[2020-12-08 20:00] VITALS: BP 136/55
[2020-12-08] MEDS: KETOROLAC 10MG TABLET PO PRN (21:00)
[2020-12-08] MEDS: LORAZEPAM 0.5MG TABLET PO PRN (21:31)
[2020-12-09] MEDS: TRAMADOL 50MG TABLET PO PRN ×4 (02:10→21:36)
[2020-12-09 08:14] VITALS: BP 127/62
[2020-12-09] MEDS: DOCUSATE SODIUM 100MG CAPSULE PO SCH ×2 (08:54→16:28)
[2020-12-09] MEDS: AMLODIPINE 10MG TABLET PO SCH (08:54)
[2020-12-09] MEDS: MULTIVITAMINS,THER W-MINERALS TABLET PO SCH (08:54)
[2020-12-09] MEDS: GABAPENTIN 100MG CAPSULE PO SCH ×3 (08:54→16:28)
[2020-12-09] MEDS: CALCIUM CARBONATE 500MG TABLET CHEW PO SCH ×3 (08:54→16:28)
[2020-12-09] MEDS: ASPIRIN 325MG EC TABLET PO SCH (08:54)
[2020-12-09] MEDS: POLYETHYLENE GLYCOL 3350 (17GM) 1 DOSE PACK PO SCH (08:54)
[2020-12-09] MEDS: CITALOPRAM HYDROBROMIDE 10MG TABLET PO SCH (08:55)
[2020-12-09] MEDS: CLOPIDOGREL 75MG TABLET PO SCH (08:55)
[2020-12-09 09:08] LABS: BASOPHILS % 1.1 % (0.0-2.0); EOSINOPHILS % 5.2 % (0.0-5.0); HEMATOCRIT. 26.6 % (36.0-48.0); HEMOGLOBIN. 8.7 g/dL (12.0-16.0); LYMPHOCYTES % 34.8 % (20.0-50.0); MEAN CORPUSCULAR HEMOGLOBIN 29.8 pg (28.0-32.0); MEAN PLATELET VOLUME 8.1 fl (7.4-10.4); MONOCYTES % 7.8 % (2.0-8.0); NEUTROPHILS % 51.1 % (40.0-76.0); PLATELET 187 x1000/uL (130-400); RED BLOOD CELL COUNT 2.92 mill/uL (4.2-5.4); RED CELL DISTRIBUTION WIDTH 13.7 % (11.6-14.6)
[2020-12-09 09:14] LABS: CHLORIDE 108 mEq/L (98-107)
[2020-12-09 16:37] VITALS: BP 160/49
[2020-12-09 17:00] VITALS: BP 140/44
[2020-12-09 20:00] VITALS: BP 104/42
[2020-12-09] MEDS: LORAZEPAM 0.5MG TABLET PO PRN (21:54)
[2020-12-10] MEDS: KETOROLAC 10MG TABLET PO PRN ×2 (04:17→15:10)
[2020-12-10 07:46] LABS: FOLIC ACID (FOLATE) SERUM >20 ng/mL ng/mL (>5.38)
[2020-12-10 07:57] LABS: VITAMIN B12 SERUM 1508 pg/mL (211-911)
[2020-12-10 08:00] VITALS: BP 129/48
[2020-12-10] MEDS: TRAMADOL 50MG TABLET PO PRN ×3 (08:05→21:33)
[2020-12-10] MEDS: CLOPIDOGREL 75MG TABLET PO SCH (09:00)
[2020-12-10] MEDS: AMLODIPINE 5MG TABLET PO SCH (09:00)
[2020-12-10] MEDS: MULTIVITAMINS,THER W-MINERALS TABLET PO SCH (09:00)
[2020-12-10] MEDS: CALCIUM CARBONATE 500MG TABLET CHEW PO SCH ×3 (09:00→17:00)
[2020-12-10] MEDS: POLYETHYLENE GLYCOL 3350 (17GM) 1 DOSE PACK PO SCH (09:00)
[2020-12-10] MEDS: GABAPENTIN 100MG CAPSULE PO SCH ×3 (09:00→17:00)
[2020-12-10] MEDS: CITALOPRAM HYDROBROMIDE 10MG TABLET PO SCH (09:00)
[2020-12-10] MEDS: DOCUSATE SODIUM 100MG CAPSULE PO SCH ×2 (09:00→17:00)
[2020-12-10] MEDS ORDERED: MINERAL OIL/PETROLATUM,WHITE CREAM 113GM JAR TOP PRN (14:15)
[2020-12-10 20:00] VITALS: BP 133/73
[2020-12-11] MEDS: LORAZEPAM 0.5MG TABLET PO PRN ×2 (02:04→21:44)
[2020-12-11 08:00] VITALS: BP 135/45
[2020-12-11] MEDS: CALCIUM CARBONATE 500MG TABLET CHEW PO SCH ×3 (08:44→16:00)
[2020-12-11] MEDS: CITALOPRAM HYDROBROMIDE 10MG TABLET PO SCH (08:44)
[2020-12-11] MEDS: AMLODIPINE 5MG TABLET PO SCH (08:44)
[2020-12-11] MEDS: POLYETHYLENE GLYCOL 3350 (17GM) 1 DOSE PACK PO SCH (08:44)
[2020-12-11] MEDS: CLOPIDOGREL 75MG TABLET PO SCH (08:44)
[2020-12-11] MEDS: DOCUSATE SODIUM 100MG CAPSULE PO SCH ×2 (08:44→16:00)
[2020-12-11] MEDS: MULTIVITAMINS,THER W-MINERALS TABLET PO SCH (08:45)
[2020-12-11] MEDS: TRAMADOL 50MG TABLET PO PRN ×2 (08:45→15:56)
[2020-12-11] MEDS: GABAPENTIN 100MG CAPSULE PO SCH ×3 (08:45→16:00)
[2020-12-11] MEDS: VITAMINS A AND D OINT TUBE TOP PRN (08:51)
[2020-12-11] MEDS: POLYVINYL ALCOHOL OPHTH DROPS 15ML BOTHEYE PRN (08:52)
[2020-12-11 20:00] VITALS: BP 134/46
[2020-12-11] MEDS: KETOROLAC 10MG TABLET PO PRN (20:04)
[2020-12-12] MEDS: TRAMADOL 50MG TABLET PO PRN ×4 (01:00→22:20)
[2020-12-12 06:32] LABS: BASOPHILS % 1.2 % (0.0-2.0); HEMATOCRIT. 25.5 % (36.0-48.0); HEMOGLOBIN. 8.7 g/dL (12.0-16.0); LYMPHOCYTES % 31.7 % (20.0-50.0); MEAN CORPUSCULAR HEMOGLOBIN 30.4 pg (28.0-32.0); MEAN CORPUSCULAR VOLUME 89.6 fL (81.0-99.0); MEAN PLATELET VOLUME 7.7 fl (7.4-10.4); MONOCYTES % 10.5 % (2.0-8.0); NEUTROPHILS % 51.6 % (40.0-76.0); PLATELET 206 x1000/uL (130-400); RED BLOOD CELL COUNT 2.85 mill/uL (4.2-5.4); RED CELL DISTRIBUTION WIDTH 13.8 % (11.6-14.6)
[2020-12-12 06:41] LABS: CHLORIDE 107 mEq/L (98-107)
[2020-12-12] MEDS: POLYETHYLENE GLYCOL 3350 (17GM) 1 DOSE PACK PO SCH (08:12)
[2020-12-12] MEDS: DOCUSATE SODIUM 100MG CAPSULE PO SCH ×2 (08:13→16:51)
[2020-12-12] MEDS: GABAPENTIN 100MG CAPSULE PO SCH ×3 (08:13→16:49)
[2020-12-12] MEDS: CALCIUM CARBONATE 500MG TABLET CHEW PO SCH ×3 (08:13→16:49)
[2020-12-12] MEDS: CITALOPRAM HYDROBROMIDE 10MG TABLET PO SCH (08:13)
[2020-12-12] MEDS: CLOPIDOGREL 75MG TABLET PO SCH (08:13)
[2020-12-12] MEDS: MULTIVITAMINS,THER W-MINERALS TABLET PO SCH (08:13)
[2020-12-12] MEDS: AMLODIPINE 5MG TABLET PO SCH (08:14)
[2020-12-12 08:15] VITALS: BP 142/44
[2020-12-12 20:00] VITALS: BP 144/49
[2020-12-12] MEDS: LORAZEPAM 0.5MG TABLET PO PRN (22:21)
[2020-12-13 07:51] VITALS: BP 130/75
[2020-12-13] MEDS: CLOPIDOGREL 75MG TABLET PO SCH (08:53)
[2020-12-13] MEDS: POLYETHYLENE GLYCOL 3350 (17GM) 1 DOSE PACK PO SCH (08:53)
[2020-12-13] MEDS: MULTIVITAMINS,THER W-MINERALS TABLET PO SCH (08:53)
[2020-12-13] MEDS: AMLODIPINE 5MG TABLET PO SCH (08:53)
[2020-12-13] MEDS: GABAPENTIN 100MG CAPSULE PO SCH ×3 (08:53→18:16)
[2020-12-13] MEDS: CITALOPRAM HYDROBROMIDE 10MG TABLET PO SCH (08:53)
[2020-12-13] MEDS: CALCIUM CARBONATE 500MG TABLET CHEW PO SCH ×3 (08:53→18:16)
[2020-12-13] MEDS: DOCUSATE SODIUM 100MG CAPSULE PO SCH ×2 (08:53→18:16)
[2020-12-13] MEDS: POLYVINYL ALCOHOL OPHTH DROPS 15ML BOTHEYE PRN (08:53)
[2020-12-13] MEDS: TRAMADOL 50MG TABLET PO PRN ×2 (09:49→20:37)
[2020-12-13 16:13] LABS: EOSINOPHILS % 3.3 % (0.0-5.0); HEMATOCRIT. 27.7 % (36.0-48.0); HEMOGLOBIN. 9.5 g/dL (12.0-16.0); LYMPHOCYTES % 27.1 % (20.0-50.0); MEAN CORPUSCULAR HEMOGLOBIN 30.8 pg (28.0-32.0); MEAN CORPUSCULAR VOLUME 89.6 fL (81.0-99.0); MEAN PLATELET VOLUME 7.9 fl (7.4-10.4); MONOCYTES % 9.3 % (2.0-8.0); NEUTROPHILS % 59.3 % (40.0-76.0); PLATELET 241 x1000/uL (130-400); RED BLOOD CELL COUNT 3.09 mill/uL (4.2-5.4); RED CELL DISTRIBUTION WIDTH 14.3 % (11.6-14.6)
[2020-12-13 16:25] LABS: CHLORIDE 103 mEq/L (98-107)
[2020-12-13 17:06] LABS: 25-HYDROXY VITAMIN D3 50 ng/mL (.)
[2020-12-13 20:00] VITALS: BP 142/53
[2020-12-13] MEDS: LORAZEPAM 0.5MG TABLET PO PRN (21:25)
[2020-12-14] MEDS: TRAMADOL 50MG TABLET PO PRN ×3 (02:49→20:16)
[2020-12-14 07:13] LABS: CHLORIDE 104 mEq/L (98-107)
[2020-12-14 07:14] LABS: BASOPHILS % 1.3 % (0.0-2.0); EOSINOPHILS % 4.6 % (0.0-5.0); HEMATOCRIT. 25.7 % (36.0-48.0); HEMOGLOBIN. 8.9 g/dL (12.0-16.0); LYMPHOCYTES % 31.5 % (20.0-50.0); MEAN CORPUSCULAR VOLUME 89.5 fL (81.0-99.0); MEAN PLATELET VOLUME 7.9 fl (7.4-10.4); MONOCYTES % 10.7 % (2.0-8.0); NEUTROPHILS % 51.9 % (40.0-76.0); PLATELET 208 x1000/uL (130-400); RED BLOOD CELL COUNT 2.87 mill/uL (4.2-5.4); RED CELL DISTRIBUTION WIDTH 13.9 % (11.6-14.6)
[2020-12-14 08:03] VITALS: BP 139/56
[2020-12-14] MEDS: CLOPIDOGREL 75MG TABLET PO SCH (09:00)
[2020-12-14] MEDS: GABAPENTIN 100MG CAPSULE PO SCH ×3 (09:00→16:48)
[2020-12-14] MEDS: CITALOPRAM HYDROBROMIDE 10MG TABLET PO SCH (09:00)
[2020-12-14] MEDS: MULTIVITAMINS,THER W-MINERALS TABLET PO SCH (09:00)
[2020-12-14] MEDS: DOCUSATE SODIUM 100MG CAPSULE PO SCH ×2 (09:00→16:48)
[2020-12-14] MEDS: AMLODIPINE 5MG TABLET PO SCH (09:01)
[2020-12-14] MEDS: POLYETHYLENE GLYCOL 3350 (17GM) 1 DOSE PACK PO SCH (09:02)
[2020-12-14] MEDS: CALCIUM CARBONATE 500MG TABLET CHEW PO SCH ×3 (09:02→16:48)
[2020-12-14] MEDS ORDERED: ERGOCALCIFEROL 50000UNITS CAPSULE PO SCH (12:00)
[2020-12-14 17:31] LABS: TOTAL IRON BINDING CAPACITY 365 ug/dL (250-450)
[2020-12-14 17:52] LABS: CLARITY URINE CLEAR (CLEAR); COLOR URINE YELLOW (YELLOW); KETONES URINE NEGATIVE (NEGATIVE); LEUKOCYTE ESTERASE URINE TRACE (NEGATIVE); NITRITE URINE NEGATIVE (NEGATIVE); OCCULT BLOOD URINE NEGATIVE (NEGATIVE); PROTEIN URINE NEGATIVE (NEGATIVE); SPECIFIC GRAVITY URINE 1.011 (1.005-1.030); UROBILINOGEN URINE 0.2 E.U./dL (0.2-1.0)
[2020-12-14] MEDS: VITAMINS A AND D OINT TUBE TOP PRN (18:32)
[2020-12-14] MEDS: POLYVINYL ALCOHOL OPHTH DROPS 15ML BOTHEYE PRN (18:32)
[2020-12-14 20:00] VITALS: BP 140/51
[2020-12-14] MEDS: DIPHENHYDRAMINE 50MG CAPSULE PO PRN (20:16)
[2020-12-15] MEDS: ACETAMINOPHEN 325MG TABLET PO PRN ×2 (02:00→14:55)
[2020-12-15] MEDS: LORAZEPAM 0.5MG TABLET PO PRN ×2 (02:00→21:10)
[2020-12-15] MEDS: DIPHENHYDRAMINE 50MG CAPSULE PO PRN (02:00)
[2020-12-15] MEDS: CITALOPRAM HYDROBROMIDE 10MG TABLET PO SCH (08:26)
[2020-12-15] MEDS: MULTIVITAMINS,THER W-MINERALS TABLET PO SCH (08:26)
[2020-12-15] MEDS: AMLODIPINE 5MG TABLET PO SCH (08:26)
[2020-12-15] MEDS: CALCIUM CARBONATE 500MG TABLET CHEW PO SCH ×3 (08:26→16:05)
[2020-12-15] MEDS: CLOPIDOGREL 75MG TABLET PO SCH (08:26)
[2020-12-15] MEDS: DOCUSATE SODIUM 100MG CAPSULE PO SCH ×2 (08:26→16:05)
[2020-12-15] MEDS: GABAPENTIN 100MG CAPSULE PO SCH ×4 (08:27→21:09)
[2020-12-15 08:30] VITALS: BP 136/57
[2020-12-15] MEDS: POLYETHYLENE GLYCOL 3350 (17GM) 1 DOSE PACK PO SCH (08:30)
[2020-12-15] MEDS: TRAMADOL 50MG TABLET PO PRN ×2 (09:49→21:10)
[2020-12-15] MEDS: FERROUS SULFATE 325MG TABLET PO SCH (12:26)
[2020-12-15] MEDS: ASCORBIC ACID 250 MG TABLET PO SCH (12:27)
[2020-12-15 20:00] VITALS: BP 128/50
[2020-12-16] MEDS: TRAMADOL 50MG TABLET PO PRN ×3 (03:00→20:15)
[2020-12-16 08:00] VITALS: BP 126/52
[2020-12-16] MEDS: GABAPENTIN 100MG CAPSULE PO SCH ×4 (08:40→20:14)
[2020-12-16] MEDS: CITALOPRAM HYDROBROMIDE 10MG TABLET PO SCH (08:40)
[2020-12-16] MEDS: MULTIVITAMINS,THER W-MINERALS TABLET PO SCH (08:40)
[2020-12-16] MEDS: POLYETHYLENE GLYCOL 3350 (17GM) 1 DOSE PACK PO SCH ×2 (08:40→08:58)
[2020-12-16] MEDS: CALCIUM CARBONATE 500MG TABLET CHEW PO SCH ×3 (08:40→16:57)
[2020-12-16] MEDS: DOCUSATE SODIUM 100MG CAPSULE PO SCH ×2 (08:40→16:57)
[2020-12-16] MEDS: CLOPIDOGREL 75MG TABLET PO SCH (08:40)
[2020-12-16] MEDS: AMLODIPINE 5MG TABLET PO SCH (08:40)
[2020-12-16 09:55] LABS: BASOPHILS % 1.1 % (0.0-2.0); EOSINOPHILS % 4.7 % (0.0-5.0); HEMATOCRIT. 28.9 % (36.0-48.0); HEMOGLOBIN. 9.5 g/dL (12.0-16.0); LYMPHOCYTES % 26.3 % (20.0-50.0); MEAN CORPUSCULAR HEMOGLOBIN 29.9 pg (28.0-32.0); MEAN CORPUSCULAR VOLUME 90.6 fL (81.0-99.0); MEAN PLATELET VOLUME 7.8 fl (7.4-10.4); MONOCYTES % 6.3 % (2.0-8.0); NEUTROPHILS % 61.6 % (40.0-76.0); PLATELET 243 x1000/uL (130-400); RED BLOOD CELL COUNT 3.19 mill/uL (4.2-5.4)
[2020-12-16 10:21] LABS: CHLORIDE 104 mEq/L (98-107)
[2020-12-16 20:00] VITALS: BP 155/76
[2020-12-16] MEDS: LORAZEPAM 0.5MG TABLET PO PRN (20:20)
[2020-12-17] MEDS: TRAMADOL 50MG TABLET PO PRN (04:34)
[2020-12-17 08:00] VITALS: BP 101/40
[2020-12-17] MEDS: AMLODIPINE 5MG TABLET PO SCH (09:00)
[2020-12-17] MEDS: POLYETHYLENE GLYCOL 3350 (17GM) 1 DOSE PACK PO SCH (09:00)
[2020-12-17] MEDS: ACETAMINOPHEN 325MG TABLET PO PRN (09:18)
[2020-12-17] MEDS: MULTIVITAMINS,THER W-MINERALS TABLET PO SCH (09:18)
[2020-12-17] MEDS: ASCORBIC ACID 250 MG TABLET PO SCH (09:18)
[2020-12-17] MEDS: GABAPENTIN 100MG CAPSULE PO SCH ×2 (09:19→12:43)
[2020-12-17] MEDS: CLOPIDOGREL 75MG TABLET PO SCH (09:19)
[2020-12-17] MEDS: DOCUSATE SODIUM 100MG CAPSULE PO SCH (09:19)
[2020-12-17] MEDS: CITALOPRAM HYDROBROMIDE 10MG TABLET PO SCH (09:20)
[2020-12-17] MEDS: CALCIUM CARBONATE 500MG TABLET CHEW PO SCH ×2 (09:20→12:43)
[2020-12-17] MEDS: FERROUS SULFATE 325MG TABLET PO SCH (12:43)
[2020-12-17 13:56] VITALS: BP 101/40
== END 2020-12-17 17:00 | disposition home health service (06) | DRG 551 ==
PROVIDERS: ADMIT Physical Medicine & Rehabilitation Spinal Cord Injury Medicine; ATTEND Family Medicine Adult Medicine
DX: M48.061 Spinal stenosis, lumbar region without neurogenic claudication (principal); G82.50 Quadriplegia, unspecified; E46 Unspecified protein-calorie malnutrition; N13.30 Unspecified hydronephrosis; Z68.1 Body mass index [BMI] 19.9 or less, adult; E78.00 Pure hypercholesterolemia, unspecified; E78.5 Hyperlipidemia, unspecified; G89.4 Chronic pain syndrome; I15.0 Renovascular hypertension; I25.10 Atherosclerotic heart disease of native coronary artery without angina pectoris; I25.2 Old myocardial infarction; I51.7 Cardiomegaly; I70.1 Atherosclerosis of renal artery; J44.9 Chronic obstructive pulmonary disease, unspecified; K56.41 Fecal impaction; M16.0 Bilateral primary osteoarthritis of hip; M17.0 Bilateral primary osteoarthritis of knee; M51.9 Unspecified thoracic, thoracolumbar and lumbosacral intervertebral disc disorder; D50.9 Iron deficiency anemia, unspecified; D63.8 Anemia in other chronic diseases classified elsewhere; E55.9 Vitamin D deficiency, unspecified; F03.90 Unspecified dementia, unspecified severity, without behavioral disturbance, psychotic disturbance, mood disturbance, and anxiety; F39 Unspecified mood [affective] disorder; F41.9 Anxiety disorder, unspecified; R62.7 Adult failure to thrive; I27.81 Cor pulmonale (chronic); I70.0 Atherosclerosis of aorta; K83.8 Other specified diseases of biliary tract; G62.9 Polyneuropathy, unspecified; N28.1 Cyst of kidney, acquired; Z60.2 Problems related to living alone; Z86.73 Personal history of transient ischemic attack (TIA), and cerebral infarction without residual deficits; Z74.01 Bed confinement status; Z95.5 Presence of coronary angioplasty implant and graft; Z79.82 Long term (current) use of aspirin; Z79.899 Other long term (current) drug therapy
CPT/HCPCS: 36415; 74018; 76700; 80048; 80053; 81003; 82306; 82607; 82728; 82746; 83540; 83550; 84134; 84443; 85025; 92523; 93970; 97110; 97116; 97162; 97166; 97530; 97535; Q0163

== ENCOUNTER 2020-12-30 11:06 | Inpatient (IN) | payer MEDICARE ==
[~2020-12-30] VITALS: Ht 157.5 cm; Wt 44.0 kg
[~2020-12-30 11:06] MED LIST changes: -AMLO10TA80 PO; -ASPI-986 PO; -DOCU-138 PO; -GABA-529 PO; -LORA-250 PO; -MV W1TAB4 PO; -T3 PO; -TRAM50TA3 PO; -TRAM50TA94 PO
[2020-12-30] MEDS ORDERED: MORPHINE SULFATE 4 MG/ML CPJ (NOT FOR IM USE) IV STA (11:43)
[2020-12-30 12:19] LABS: BASOPHILS % 1.1 % (0.0-2.0); EOSINOPHILS % 2.2 % (0.0-5.0); HEMATOCRIT. 27.7 % (36.0-48.0); HEMOGLOBIN. 9.7 g/dL (12.0-16.0); LYMPHOCYTES % 22.2 % (20.0-50.0); MEAN CORPUSCULAR HEMOGLOBIN 31.5 pg (28.0-32.0); MEAN CORPUSCULAR VOLUME 89.6 fL (81.0-99.0); MEAN PLATELET VOLUME 7.2 fl (7.4-10.4); MONOCYTES % 9.8 % (2.0-8.0); NEUTROPHILS % 64.7 % (40.0-76.0); PLATELET 229 x1000/uL (130-400)
[2020-12-30 12:30] LABS: CHLORIDE 107 mEq/L (98-107)
[2020-12-30] MEDS ORDERED: CLONIDINE 0.1MG TABLET PO PRN (18:00)
[2020-12-30] MEDS ORDERED: LORAZEPAM 0.5MG TABLET PO PRN (18:00)
[2020-12-30] MEDS ORDERED: IPRATROPIUM/ALBUTEROL 0.5-3(2.5)MG/3ML NEB HHN PRN (18:00)
[2020-12-30] MEDS ORDERED: ACETAMINOPHEN 325MG TABLET PO PRN ×2 (18:00)
[2020-12-30] MEDS ORDERED: ONDANSETRON HCL 4MG/2ML INJ IV PRN (18:00)
[2020-12-30] MEDS ORDERED: MAGNESIUM/ALUMINUM HYDROXIDE/SIMETHICONE 30ML UDC PO PRN (18:15)
[2020-12-30] MEDS ORDERED: ENOXAPARIN 40MG/0.4ML SYR SUBCUT SCH (18:15)
[2020-12-30] MEDS: HYDROMORPHONE HCL/PF 2MG/ML CPJ IV PRN (20:23)
[2020-12-30] MEDS: ENOXAPARIN 30MG/0.3ML SYR SUBCUT SCH (20:25)
[2020-12-30] MEDS ORDERED: IOHEXOL-300 100 ML BOTTLE ONE (21:03)
[2020-12-30 22:00] VITALS: BP 156/62
[2020-12-30] MEDS: SODIUM CHLORIDE 0.9% 1,000 ML IV SCH (22:02)
[2020-12-31] VITALS (7 sets, daily range): BP systolic 134–178; BP diastolic 55–74
[2020-12-31 02:14] LABS: CLARITY URINE CLEAR (CLEAR); COLOR URINE YELLOW (YELLOW); KETONES URINE TRACE (NEGATIVE); LEUKOCYTE ESTERASE URINE NEGATIVE (NEGATIVE); NITRITE URINE NEGATIVE (NEGATIVE); OCCULT BLOOD URINE NEGATIVE (NEGATIVE); PH URINE 6.5 (4.5-8.0); PROTEIN URINE NEGATIVE (NEGATIVE); SPECIFIC GRAVITY URINE 1.055 (1.005-1.030); UROBILINOGEN URINE 0.2 E.U./dL (0.2-1.0)
[2020-12-31] MEDS: HYDROMORPHONE HCL/PF 2MG/ML CPJ IV PRN ×3 (03:03→20:45)
[2020-12-31 07:23] LABS: BASOPHILS % 0.9 % (0.0-2.0); EOSINOPHILS % 2.9 % (0.0-5.0); HEMATOCRIT. 28.4 % (36.0-48.0); HEMOGLOBIN. 9.7 g/dL (12.0-16.0); LYMPHOCYTES % 27.9 % (20.0-50.0); MEAN CORPUSCULAR VOLUME 90.4 fL (81.0-99.0); MONOCYTES % 10.5 % (2.0-8.0); NEUTROPHILS % 57.8 % (40.0-76.0); PLATELET 223 x1000/uL (130-400); RED BLOOD CELL COUNT 3.14 mill/uL (4.2-5.4); RED CELL DISTRIBUTION WIDTH 14.3 % (11.6-14.6)
[2020-12-31 07:31] LABS: CHLORIDE 109 mEq/L (98-107)
[2020-12-31 07:38] LABS: AMYLASE 42 IU/L (25-115); PHOSPHORUS 3.4 mg/dL (2.5-4.9)
[2020-12-31] MEDS ORDERED: NA PHOS,M-B/NA PHOS,DI-BA ENEMA 118ML PR SCH (07:45)
[2020-12-31] MEDS: PANTOPRAZOLE SODIUM 40 MG/VIAL IV SCH (09:28)
[2020-12-31] MEDS: SODIUM CHLORIDE 0.9% 1,000 ML IV SCH (10:30)
[2020-12-31] MEDS ORDERED: LORAZEPAM 2MG/ML CPJ IV PRN (11:45)
[2020-12-31] MEDS: HYDROCODONE/ACETAMINOPHEN 5/325MG TABLET PO PRN (11:52)
[2020-12-31] MEDS ORDERED: HYDROMORPHONE HCL/PF 2MG/ML CPJ IV NR (13:37)
[2020-12-31] MEDS ORDERED: AMLODIPINE 10MG TABLET PO SCH (17:00)
[2020-12-31] MEDS: DOCUSATE SODIUM 100MG CAPSULE PO SCH (17:39)
[2020-12-31] MEDS: SENNOSIDES/DOCUSATE SOD 8.6/50MG TABLET PO SCH (20:43)
[2020-12-31] MEDS: ENOXAPARIN 30MG/0.3ML SYR SUBCUT SCH (20:44)
[2021-01-01] VITALS: BP 127/64
[2021-01-01] MEDS: HYDROCODONE/ACETAMINOPHEN 5/325MG TABLET PO PRN ×2 (03:35→08:55)
[2021-01-01] MEDS: SODIUM CHLORIDE 0.9% 1,000 ML IV SCH ×2 (03:35→22:26)
[2021-01-01 04:00] VITALS: BP 135/69
[2021-01-01] MEDS: HYDROMORPHONE HCL/PF 2MG/ML CPJ IV PRN ×3 (05:14→17:25)
[2021-01-01 08:00] VITALS: BP 153/67
[2021-01-01] MEDS: POLYETHYLENE GLYCOL 3350 (17GM) 1 DOSE PACK PO SCH (08:53)
[2021-01-01] MEDS: ASPIRIN 81MG EC TABLET PO SCH (08:53)
[2021-01-01] MEDS: CITALOPRAM HYDROBROMIDE 10MG TABLET PO SCH (08:54)
[2021-01-01] MEDS: AMLODIPINE 5MG TABLET PO SCH ×2 (08:54→22:29)
[2021-01-01] MEDS: PANTOPRAZOLE SODIUM 40 MG/VIAL IV SCH (08:54)
[2021-01-01] MEDS: DOCUSATE SODIUM 100MG CAPSULE PO SCH ×2 (08:54→17:00)
[2021-01-01] MEDS: PENTOXIFYLLINE 400MG TABLET PO SCH ×3 (08:54→17:24)
[2021-01-01] MEDS: METOPROLOL TARTRATE 25MG TABLET PO SCH ×2 (08:55→22:29)
[2021-01-01] MEDS: CLOPIDOGREL 75MG TABLET PO SCH (08:55)
[2021-01-01] MEDS ORDERED: METOPROLOL TARTRATE 25MG TABLET PO SCH (09:00)
[2021-01-01 10:53] LABS: CHLORIDE 109 mEq/L (98-107)
[2021-01-01] MEDS ORDERED: POTASSIUM CHLORIDE 20MEQ TABLET SR PO SCH (11:30)
[2021-01-01 12:00] VITALS: BP 156/56
[2021-01-01] MEDS: GABAPENTIN 300MG CAPSULE PO SCH ×2 (12:17→17:24)
[2021-01-01] MEDS: METOCLOPRAMIDE HCL 10MG/2ML VIAL IV SCH ×2 (12:18→17:25)
[2021-01-01 12:29] LABS: BASOPHILS % 1.1 % (0.0-2.0); EOSINOPHILS % 2.5 % (0.0-5.0); HEMATOCRIT. 30.3 % (36.0-48.0); HEMOGLOBIN. 10.4 g/dL (12.0-16.0); LYMPHOCYTES % 22.3 % (20.0-50.0); MEAN CORPUSCULAR HEMOGLOBIN 31.2 pg (28.0-32.0); MEAN CORPUSCULAR VOLUME 91.1 fL (81.0-99.0); MEAN PLATELET VOLUME 7.4 fl (7.4-10.4); MONOCYTES % 9.6 % (2.0-8.0); NEUTROPHILS % 64.5 % (40.0-76.0); PLATELET 223 x1000/uL (130-400); RED BLOOD CELL COUNT 3.33 mill/uL (4.2-5.4); RED CELL DISTRIBUTION WIDTH 14.1 % (11.6-14.6)
[2021-01-01 16:00] VITALS: BP 141/71
[2021-01-01] MEDS: LIDOCAINE HCL 4% CREAM 76GM TUBE TP SCH (18:00)
[2021-01-01] MEDS: ENOXAPARIN 30MG/0.3ML SYR SUBCUT SCH (19:15)
[2021-01-01 20:00] VITALS: BP 153/94
[2021-01-01] MEDS: SENNOSIDES/DOCUSATE SOD 8.6/50MG TABLET PO SCH (22:27)
[2021-01-01] MEDS: ATORVASTATIN CALCIUM 40MG TABLET PO SCH (22:29)
[2021-01-02] VITALS: BP 173/72
[2021-01-02] MEDS: METOCLOPRAMIDE HCL 10MG/2ML VIAL IV SCH ×4 (01:09→17:45)
[2021-01-02] MEDS: HYDROMORPHONE HCL/PF 2MG/ML CPJ IV PRN ×3 (01:09→17:45)
[2021-01-02 04:00] VITALS: BP 121/72
[2021-01-02 05:57] LABS: CHLORIDE 110 mEq/L (98-107)
[2021-01-02] MEDS: LIDOCAINE HCL 4% CREAM 76GM TUBE TP SCH ×4 (06:24→17:46)
[2021-01-02] MEDS: HYDROCODONE/ACETAMINOPHEN 5/325MG TABLET PO PRN (06:27)
[2021-01-02] MEDS: GABAPENTIN 300MG CAPSULE PO SCH ×4 (06:28→18:00)
[2021-01-02 06:37] LABS: BASOPHILS % 1.1 % (0.0-2.0); EOSINOPHILS % 2.6 % (0.0-5.0); HEMATOCRIT. 28.1 % (36.0-48.0); HEMOGLOBIN. 9.7 g/dL (12.0-16.0); LYMPHOCYTES % 29.9 % (20.0-50.0); MEAN CORPUSCULAR HEMOGLOBIN 30.8 pg (28.0-32.0); MEAN CORPUSCULAR VOLUME 89.3 fL (81.0-99.0); MEAN PLATELET VOLUME 7.8 fl (7.4-10.4); MONOCYTES % 9.3 % (2.0-8.0); NEUTROPHILS % 57.1 % (40.0-76.0); PLATELET 213 x1000/uL (130-400); RED BLOOD CELL COUNT 3.15 mill/uL (4.2-5.4)
[2021-01-02 08:00] VITALS: BP 152/57
[2021-01-02] MEDS: POLYETHYLENE GLYCOL 3350 (17GM) 1 DOSE PACK PO SCH (09:00)
[2021-01-02] MEDS: PANTOPRAZOLE SODIUM 40 MG/VIAL IV SCH (09:47)
[2021-01-02] MEDS: ASPIRIN 81MG EC TABLET PO SCH (09:49)
[2021-01-02] MEDS: CLOPIDOGREL 75MG TABLET PO SCH (09:49)
[2021-01-02] MEDS: AMLODIPINE 5MG TABLET PO SCH ×2 (09:55→20:55)
[2021-01-02] MEDS: CITALOPRAM HYDROBROMIDE 10MG TABLET PO SCH (09:56)
[2021-01-02] MEDS: METOPROLOL TARTRATE 25MG TABLET PO SCH ×2 (09:59→20:55)
[2021-01-02] MEDS: PENTOXIFYLLINE 400MG TABLET PO SCH ×3 (10:00→17:41)
[2021-01-02] MEDS: DOCUSATE SODIUM 100MG CAPSULE PO SCH ×2 (10:00→17:43)
[2021-01-02 12:00] VITALS: BP 159/60
[2021-01-02] MEDS: SODIUM CHLORIDE 0.9% 1,000 ML IV SCH (12:40)
[2021-01-02] MEDS: DICYCLOMINE HCL 10MG CAPSULE PO PRN ×2 (13:40→21:04)
[2021-01-02 16:00] VITALS: BP 166/67
[2021-01-02] MEDS: ENOXAPARIN 30MG/0.3ML SYR SUBCUT SCH (18:33)
[2021-01-02 20:00] VITALS: BP 178/73
[2021-01-02] MEDS: SENNOSIDES/DOCUSATE SOD 8.6/50MG TABLET PO SCH (20:49)
[2021-01-02] MEDS: ATORVASTATIN CALCIUM 40MG TABLET PO SCH (20:54)
[2021-01-03] VITALS: BP 136/73
[2021-01-03] MEDS: LIDOCAINE HCL 4% CREAM 76GM TUBE TP SCH ×4 (00:19→17:43)
[2021-01-03] MEDS: METOCLOPRAMIDE HCL 10MG/2ML VIAL IV SCH ×4 (00:21→17:43)
[2021-01-03] MEDS: DOCUSATE SODIUM 100MG CAPSULE PO PRN (00:21)
[2021-01-03] MEDS: HYDROMORPHONE HCL/PF 2MG/ML CPJ IV PRN ×3 (00:22→17:43)
[2021-01-03] MEDS: GABAPENTIN 300MG CAPSULE PO SCH ×4 (00:34→17:42)
[2021-01-03] MEDS: DICYCLOMINE HCL 10MG CAPSULE PO PRN ×3 (03:49→20:54)
[2021-01-03 04:00] VITALS: BP 125/54
[2021-01-03 06:23] LABS: BASOPHILS % 1.1 % (0.0-2.0); EOSINOPHILS % 3.1 % (0.0-5.0); HEMATOCRIT. 27.7 % (36.0-48.0); HEMOGLOBIN. 9.5 g/dL (12.0-16.0); LYMPHOCYTES % 23.3 % (20.0-50.0); MEAN CORPUSCULAR HEMOGLOBIN 30.9 pg (28.0-32.0); MEAN CORPUSCULAR VOLUME 90.3 fL (81.0-99.0); MEAN PLATELET VOLUME 7.5 fl (7.4-10.4); MONOCYTES % 9.6 % (2.0-8.0); NEUTROPHILS % 62.9 % (40.0-76.0); PLATELET 202 x1000/uL (130-400); RED BLOOD CELL COUNT 3.07 mill/uL (4.2-5.4); RED CELL DISTRIBUTION WIDTH 13.7 % (11.6-14.6)
[2021-01-03 06:27] LABS: CHLORIDE 109 mEq/L (98-107)
[2021-01-03] MEDS: SODIUM CHLORIDE 0.9% 1,000 ML IV SCH ×2 (07:24→22:16)
[2021-01-03 08:00] VITALS: BP 156/63
[2021-01-03] MEDS: POLYETHYLENE GLYCOL 3350 (17GM) 1 DOSE PACK PO SCH (09:00)
[2021-01-03] MEDS: PENTOXIFYLLINE 400MG TABLET PO SCH ×3 (09:44→17:42)
[2021-01-03] MEDS: PANTOPRAZOLE SODIUM 40 MG/VIAL IV SCH (09:44)
[2021-01-03] MEDS: ASPIRIN 81MG EC TABLET PO SCH (09:44)
[2021-01-03] MEDS: CLOPIDOGREL 75MG TABLET PO SCH (09:44)
[2021-01-03] MEDS: DOCUSATE SODIUM 100MG CAPSULE PO SCH ×2 (09:44→17:00)
[2021-01-03] MEDS: AMLODIPINE 5MG TABLET PO SCH ×2 (09:45→21:00)
[2021-01-03] MEDS: METOPROLOL TARTRATE 25MG TABLET PO SCH ×2 (09:46→20:48)
[2021-01-03] MEDS: CITALOPRAM HYDROBROMIDE 10MG TABLET PO SCH (09:59)
[2021-01-03] MEDS ORDERED: POTASSIUM CHLORIDE 20MEQ/PACKET PO NR (11:00)
[2021-01-03 12:00] VITALS: BP 141/67
[2021-01-03 16:00] VITALS: BP 144/64
[2021-01-03] MEDS: ENOXAPARIN 30MG/0.3ML SYR SUBCUT SCH (17:44)
[2021-01-03 20:00] VITALS: BP 147/51
[2021-01-03] MEDS: ATORVASTATIN CALCIUM 40MG TABLET PO SCH (20:46)
[2021-01-03] MEDS: HYDROCODONE/ACETAMINOPHEN 5/325MG TABLET PO PRN (20:49)
[2021-01-03] MEDS: SENNOSIDES/DOCUSATE SOD 8.6/50MG TABLET PO SCH (20:54)
[2021-01-04] VITALS: BP 127/45
[2021-01-04] MEDS: METOCLOPRAMIDE HCL 10MG/2ML VIAL IV SCH ×4 (00:07→18:32)
[2021-01-04] MEDS: PHENAZOPYRIDINE HCL 100MG TABLET PO SCH ×4 (00:08→18:29)
[2021-01-04] MEDS: GABAPENTIN 300MG CAPSULE PO SCH ×4 (00:08→18:29)
[2021-01-04] MEDS: LIDOCAINE HCL 4% CREAM 76GM TUBE TP SCH ×4 (00:08→18:32)
[2021-01-04] MEDS: HYDROMORPHONE HCL/PF 2MG/ML CPJ IV PRN ×3 (00:08→20:25)
[2021-01-04 01:01] LABS: CLARITY URINE CLEAR (CLEAR); COLOR URINE YELLOW (YELLOW); KETONES URINE NEGATIVE (NEGATIVE); LEUKOCYTE ESTERASE URINE TRACE (NEGATIVE); NITRITE URINE NEGATIVE (NEGATIVE); OCCULT BLOOD URINE NEGATIVE (NEGATIVE); PROTEIN URINE NEGATIVE (NEGATIVE); SPECIFIC GRAVITY URINE 1.012 (1.005-1.030); UROBILINOGEN URINE 0.2 E.U./dL (0.2-1.0)
[2021-01-04] MEDS: DOCUSATE SODIUM 100MG CAPSULE PO PRN (03:39)
[2021-01-04] MEDS: CEFTRIAXONE 1,000 MG in DEXTROSE 5% WATER 50 ML IV SCH (03:39)
[2021-01-04] MEDS: DICYCLOMINE HCL 10MG CAPSULE PO PRN ×2 (03:39→20:23)
[2021-01-04] MEDS: HYDROCODONE/ACETAMINOPHEN 5/325MG TABLET PO PRN (03:40)
[2021-01-04 04:00] VITALS: BP 129/52
[2021-01-04 08:00] VITALS: BP 147/52
[2021-01-04] MEDS: AMLODIPINE 5MG TABLET PO SCH (08:51)
[2021-01-04] MEDS: PENTOXIFYLLINE 400MG TABLET PO SCH ×3 (08:51→18:29)
[2021-01-04] MEDS: METOPROLOL TARTRATE 25MG TABLET PO SCH ×2 (08:58→20:23)
[2021-01-04] MEDS: ASPIRIN 81MG EC TABLET PO SCH (08:58)
[2021-01-04] MEDS: DOCUSATE SODIUM 100MG CAPSULE PO SCH ×2 (08:58→17:00)
[2021-01-04] MEDS: POLYETHYLENE GLYCOL 3350 (17GM) 1 DOSE PACK PO SCH (08:59)
[2021-01-04] MEDS: CLOPIDOGREL 75MG TABLET PO SCH (08:59)
[2021-01-04] MEDS: PANTOPRAZOLE SODIUM 40 MG/VIAL IV SCH (09:02)
[2021-01-04] MEDS: CITALOPRAM HYDROBROMIDE 10MG TABLET PO SCH (09:02)
[2021-01-04 12:00] VITALS: BP 119/52
[2021-01-04 13:34] LABS: BASOPHILS % 1.2 % (0.0-2.0); EOSINOPHILS % 3.2 % (0.0-5.0); HEMATOCRIT. 25.6 % (36.0-48.0); HEMOGLOBIN. 8.8 g/dL (12.0-16.0); LYMPHOCYTES % 25.3 % (20.0-50.0); MEAN CORPUSCULAR HEMOGLOBIN 31.1 pg (28.0-32.0); MEAN PLATELET VOLUME 7.4 fl (7.4-10.4); MONOCYTES % 11.3 % (2.0-8.0); PLATELET 181 x1000/uL (130-400); RED BLOOD CELL COUNT 2.82 mill/uL (4.2-5.4); RED CELL DISTRIBUTION WIDTH 13.9 % (11.6-14.6)
[2021-01-04 14:08] LABS: CHLORIDE 108 mEq/L (98-107)
[2021-01-04] MEDS: SODIUM CHLORIDE 0.9% 1,000 ML IV SCH (14:57)
[2021-01-04 16:00] VITALS: BP 141/63
[2021-01-04] MEDS: ENOXAPARIN 30MG/0.3ML SYR SUBCUT SCH (18:32)
[2021-01-04 20:00] VITALS: BP 168/58
[2021-01-04] MEDS: ATORVASTATIN CALCIUM 40MG TABLET PO SCH (20:23)
[2021-01-04] MEDS: SENNOSIDES/DOCUSATE SOD 8.6/50MG TABLET PO SCH (20:24)
[2021-01-05] VITALS: BP 131/60
[2021-01-05] MEDS: AMLODIPINE 5MG TABLET PO SCH ×3 (01:12→20:49)
[2021-01-05] MEDS: CEFTRIAXONE 1,000 MG in DEXTROSE 5% WATER 50 ML IV SCH (01:12)
[2021-01-05] MEDS: LIDOCAINE HCL 4% CREAM 76GM TUBE TP SCH ×5 (01:12→23:28)
[2021-01-05] MEDS: GABAPENTIN 300MG CAPSULE PO SCH ×5 (01:12→23:27)
[2021-01-05] MEDS: METOCLOPRAMIDE HCL 10MG/2ML VIAL IV SCH ×5 (01:12→23:28)
[2021-01-05] MEDS: HYDROMORPHONE HCL/PF 2MG/ML CPJ IV PRN ×4 (03:12→22:20)
[2021-01-05] MEDS: DICYCLOMINE HCL 10MG CAPSULE PO PRN (03:12)
[2021-01-05 04:00] VITALS: BP 147/54
[2021-01-05] MEDS: SODIUM CHLORIDE 0.9% 1,000 ML IV SCH ×2 (07:20→08:24)
[2021-01-05] MEDS: PENTOXIFYLLINE 400MG TABLET PO SCH ×3 (09:10→17:20)
[2021-01-05] MEDS: CLOPIDOGREL 75MG TABLET PO SCH (09:10)
[2021-01-05] MEDS: ASPIRIN 81MG EC TABLET PO SCH (09:10)
[2021-01-05] MEDS: CITALOPRAM HYDROBROMIDE 10MG TABLET PO SCH (09:10)
[2021-01-05] MEDS: PHENAZOPYRIDINE HCL 100MG TABLET PO SCH ×3 (09:10→18:52)
[2021-01-05] MEDS: METOPROLOL TARTRATE 25MG TABLET PO SCH ×2 (09:16→20:50)
[2021-01-05] MEDS: POLYETHYLENE GLYCOL 3350 (17GM) 1 DOSE PACK PO SCH (09:16)
[2021-01-05] MEDS: DOCUSATE SODIUM 100MG CAPSULE PO SCH ×2 (09:17→17:00)
[2021-01-05] MEDS: PANTOPRAZOLE SODIUM 40 MG/VIAL IV SCH (09:17)
[2021-01-05 12:00] VITALS: BP 96/55
[2021-01-05 16:00] VITALS: BP_SYST 118; BP_SYST 148; BP_DIAS 61; BP_DIAS 74
[2021-01-05 20:00] VITALS: BP 167/90
[2021-01-05] MEDS: SENNOSIDES/DOCUSATE SOD 8.6/50MG TABLET PO SCH (20:17)
[2021-01-05] MEDS: ATORVASTATIN CALCIUM 40MG TABLET PO SCH (20:49)
[2021-01-05] MEDS: ENOXAPARIN 30MG/0.3ML SYR SUBCUT SCH (20:55)
[2021-01-06] VITALS (7 sets, daily range): BP systolic 128–154; BP diastolic 50–64
[2021-01-06] MEDS: CEFTRIAXONE 1,000 MG in DEXTROSE 5% WATER 50 ML IV SCH (01:30)
[2021-01-06] MEDS: METOCLOPRAMIDE HCL 10MG/2ML VIAL IV SCH ×3 (05:52→17:47)
[2021-01-06] MEDS: LIDOCAINE HCL 4% CREAM 76GM TUBE TP SCH ×3 (05:52→17:51)
[2021-01-06] MEDS: GABAPENTIN 300MG CAPSULE PO SCH ×3 (05:52→17:48)
[2021-01-06] MEDS: HYDROMORPHONE HCL/PF 2MG/ML CPJ IV PRN ×3 (06:10→18:34)
[2021-01-06] MEDS: PANTOPRAZOLE 40MG DR TABLET PO SCH (06:21)
[2021-01-06] MEDS: METOPROLOL TARTRATE 25MG TABLET PO SCH ×2 (08:42→20:22)
[2021-01-06] MEDS: PHENAZOPYRIDINE HCL 100MG TABLET PO SCH ×3 (08:42→17:51)
[2021-01-06] MEDS: ASPIRIN 81MG EC TABLET PO SCH (08:42)
[2021-01-06] MEDS: CITALOPRAM HYDROBROMIDE 10MG TABLET PO SCH ×2 (08:42→08:52)
[2021-01-06] MEDS: POLYETHYLENE GLYCOL 3350 (17GM) 1 DOSE PACK PO SCH (08:43)
[2021-01-06] MEDS: CLOPIDOGREL 75MG TABLET PO SCH (08:43)
[2021-01-06] MEDS: DOCUSATE SODIUM 100MG CAPSULE PO SCH ×2 (08:43→17:00)
[2021-01-06] MEDS: AMLODIPINE 5MG TABLET PO SCH ×2 (09:05→20:22)
[2021-01-06] MEDS: PENTOXIFYLLINE 400MG TABLET PO SCH ×3 (09:05→17:47)
[2021-01-06] MEDS: SODIUM CHLORIDE 0.9% 1,000 ML IV SCH ×2 (16:40→20:37)
[2021-01-06] MEDS: ATORVASTATIN CALCIUM 40MG TABLET PO SCH (20:19)
[2021-01-06] MEDS: ENOXAPARIN 30MG/0.3ML SYR SUBCUT SCH (20:49)
[2021-01-06] MEDS: SENNOSIDES/DOCUSATE SOD 8.6/50MG TABLET PO SCH (20:49)
[2021-01-07] VITALS: BP 160/60
[2021-01-07] MEDS: LIDOCAINE HCL 4% CREAM 76GM TUBE TP SCH ×4 (00:14→18:00)
[2021-01-07] MEDS: METOCLOPRAMIDE HCL 10MG/2ML VIAL IV SCH ×4 (00:14→18:18)
[2021-01-07] MEDS: GABAPENTIN 300MG CAPSULE PO SCH ×4 (00:14→18:21)
[2021-01-07] MEDS: HYDROMORPHONE HCL/PF 2MG/ML CPJ IV PRN (00:45)
[2021-01-07] MEDS: CEFTRIAXONE 1,000 MG in DEXTROSE 5% WATER 50 ML IV SCH (00:45)
[2021-01-07 04:00] VITALS: BP 142/59
[2021-01-07] MEDS: PANTOPRAZOLE 40MG DR TABLET PO SCH (06:29)
[2021-01-07 06:50] LABS: BASOPHILS % 0.5 % (0.0-2.0); EOSINOPHILS % 0.7 % (0.0-5.0); HEMATOCRIT. 27.5 % (36.0-48.0); HEMOGLOBIN. 9.3 g/dL (12.0-16.0); LYMPHOCYTES % 13.9 % (20.0-50.0); MEAN CORPUSCULAR HEMOGLOBIN 30.8 pg (28.0-32.0); MEAN CORPUSCULAR VOLUME 91.3 fL (81.0-99.0); MEAN PLATELET VOLUME 7.6 fl (7.4-10.4); MONOCYTES % 5.4 % (2.0-8.0); NEUTROPHILS % 79.5 % (40.0-76.0); PLATELET 201 x1000/uL (130-400); RED BLOOD CELL COUNT 3.01 mill/uL (4.2-5.4); RED CELL DISTRIBUTION WIDTH 13.7 % (11.6-14.6)
[2021-01-07 06:57] LABS: CHLORIDE 106 mEq/L (98-107)
[2021-01-07 08:00] VITALS: BP 118/69
[2021-01-07] MEDS: DOCUSATE SODIUM 100MG CAPSULE PO SCH ×2 (09:00→17:00)
[2021-01-07] MEDS: POLYETHYLENE GLYCOL 3350 (17GM) 1 DOSE PACK PO SCH (09:00)
[2021-01-07] MEDS: ASPIRIN 81MG EC TABLET PO SCH (09:06)
[2021-01-07] MEDS: CLOPIDOGREL 75MG TABLET PO SCH (09:06)
[2021-01-07] MEDS: PENTOXIFYLLINE 400MG TABLET PO SCH ×3 (09:06→18:17)
[2021-01-07] MEDS: CITALOPRAM HYDROBROMIDE 10MG TABLET PO SCH (09:06)
[2021-01-07] MEDS: AMLODIPINE 5MG TABLET PO SCH ×2 (09:07→21:24)
[2021-01-07] MEDS: PHENAZOPYRIDINE HCL 100MG TABLET PO SCH ×3 (09:07→18:17)
[2021-01-07] MEDS: METOPROLOL TARTRATE 25MG TABLET PO SCH ×2 (09:07→21:23)
[2021-01-07] MEDS ORDERED: HYDROCODONE/APAP 7.5/325MG 1 TAB TABLET PO PRN (09:15)
[2021-01-07 12:00] VITALS: BP 130/57
[2021-01-07] MEDS ORDERED: POTASSIUM CHLORIDE 20MEQ TABLET SR PO NR (13:00)
[2021-01-07] MEDS ORDERED: HYDROCODONE/ACETAMINOPHEN 5/325MG TABLET PO PRN (15:15)
[2021-01-07 16:00] VITALS: BP 130/65
[2021-01-07 20:00] VITALS: BP 135/53
[2021-01-07] MEDS ORDERED: TRAZODONE HCL 50MG TABLET PO SCH (21:00)
[2021-01-07] MEDS: ATORVASTATIN CALCIUM 40MG TABLET PO SCH (21:23)
[2021-01-07] MEDS: SENNOSIDES/DOCUSATE SOD 8.6/50MG TABLET PO SCH (21:23)
[2021-01-07] MEDS: HYDROCODONE/ACETAMINOPHEN 10/325MG TABLET PO PRN (21:25)
[2021-01-07] MEDS: ENOXAPARIN 30MG/0.3ML SYR SUBCUT SCH (21:25)
[2021-01-08] VITALS: BP 112/41
[2021-01-08] MEDS: CEFTRIAXONE 1,000 MG in DEXTROSE 5% WATER 50 ML IV SCH (00:16)
[2021-01-08] MEDS: LIDOCAINE HCL 4% CREAM 76GM TUBE TP SCH ×4 (00:16→17:51)
[2021-01-08] MEDS: METOCLOPRAMIDE HCL 10MG/2ML VIAL IV SCH ×4 (00:16→17:50)
[2021-01-08] MEDS: GABAPENTIN 300MG CAPSULE PO SCH ×4 (00:16→17:50)
[2021-01-08] MEDS: HYDROCODONE/ACETAMINOPHEN 10/325MG TABLET PO PRN ×2 (01:55→06:31)
[2021-01-08] MEDS: SODIUM CHLORIDE 0.9% 1,000 ML IV SCH (02:00)
[2021-01-08 04:00] VITALS: BP 105/42
[2021-01-08 06:28] LABS: CHLORIDE 110 mEq/L (98-107)
[2021-01-08] MEDS: PANTOPRAZOLE 40MG DR TABLET PO SCH (06:30)
[2021-01-08 06:53] LABS: BASOPHILS % 0.7 % (0.0-2.0); EOSINOPHILS % 4.3 % (0.0-5.0); HEMATOCRIT. 22.3 % (36.0-48.0); HEMOGLOBIN. 7.7 g/dL (12.0-16.0); LYMPHOCYTES % 23.5 % (20.0-50.0); MEAN CORPUSCULAR HEMOGLOBIN 31.2 pg (28.0-32.0); MEAN CORPUSCULAR VOLUME 90.4 fL (81.0-99.0); MEAN PLATELET VOLUME 7.6 fl (7.4-10.4); MONOCYTES % 6.7 % (2.0-8.0); NEUTROPHILS % 64.8 % (40.0-76.0); PLATELET 171 x1000/uL (130-400); RED BLOOD CELL COUNT 2.47 mill/uL (4.2-5.4); RED CELL DISTRIBUTION WIDTH 13.9 % (11.6-14.6)
[2021-01-08 08:48] VITALS: BP 131/71
[2021-01-08] MEDS: POLYETHYLENE GLYCOL 3350 (17GM) 1 DOSE PACK PO SCH (09:00)
[2021-01-08] MEDS: DOCUSATE SODIUM 100MG CAPSULE PO SCH (09:00)
[2021-01-08] MEDS: ASPIRIN 81MG EC TABLET PO SCH (10:00)
[2021-01-08] MEDS: METOPROLOL TARTRATE 25MG TABLET PO SCH (10:00)
[2021-01-08] MEDS: AMLODIPINE 5MG TABLET PO SCH (10:00)
[2021-01-08] MEDS: PHENAZOPYRIDINE HCL 100MG TABLET PO SCH ×2 (10:00→17:50)
[2021-01-08] MEDS: PENTOXIFYLLINE 400MG TABLET PO SCH ×2 (10:00→17:50)
[2021-01-08] MEDS: CITALOPRAM HYDROBROMIDE 10MG TABLET PO SCH (10:01)
[2021-01-08] MEDS: CLOPIDOGREL 75MG TABLET PO SCH (10:01)
[2021-01-08 12:00] VITALS: BP 127/47
[2021-01-08 16:00] VITALS: BP 134/42
[2021-01-08] MEDS ORDERED: DICY10CA88 PO (16:41)
[2021-01-08] MEDS ORDERED: HYDR-4009 PO (16:41)
[2021-01-08] MEDS ORDERED: METO25TA6 PO (16:41)
[2021-01-10] MEDS ORDERED: HYDR-4001 MT (13:26)
== END 2021-01-08 22:16 | disposition home health service (06) | DRG 689 ==
LOC: ER 11:59 → 6WST 16:40 → EDBEDREQTM 16:42 → EDBEDREQ 16:42 → ENRESERV 17:14 → CANRESERV 17:14 → EDBEDREQSVC 18:29 → ENRESERV 19:39
PROVIDERS: ADMIT Family Medicine Adult Medicine; ATTEND Family Medicine Adult Medicine
DX: N30.90 Cystitis, unspecified without hematuria (principal); E43 Unspecified severe protein-calorie malnutrition; Z68.1 Body mass index [BMI] 19.9 or less, adult; K59.00 Constipation, unspecified; I10 Essential (primary) hypertension; I25.10 Atherosclerotic heart disease of native coronary artery without angina pectoris; D72.819 Decreased white blood cell count, unspecified; M16.0 Bilateral primary osteoarthritis of hip; N28.1 Cyst of kidney, acquired; K83.8 Other specified diseases of biliary tract; I70.1 Atherosclerosis of renal artery; J44.9 Chronic obstructive pulmonary disease, unspecified; E78.5 Hyperlipidemia, unspecified; D63.8 Anemia in other chronic diseases classified elsewhere; E87.6 Hypokalemia; G89.4 Chronic pain syndrome; M47.816 Spondylosis without myelopathy or radiculopathy, lumbar region; M50.30 Other cervical disc degeneration, unspecified cervical region; R62.7 Adult failure to thrive; G89.0 Central pain syndrome; F03.90 Unspecified dementia, unspecified severity, without behavioral disturbance, psychotic disturbance, mood disturbance, and anxiety; E78.00 Pure hypercholesterolemia, unspecified; I73.9 Peripheral vascular disease, unspecified; Z74.01 Bed confinement status; Z86.73 Personal history of transient ischemic attack (TIA), and cerebral infarction without residual deficits; I25.2 Old myocardial infarction; Z88.2 Allergy status to sulfonamides; Z95.5 Presence of coronary angioplasty implant and graft
CPT/HCPCS: 36415; 71045; 74177; 74181; 76700; 76705; 80048; 80053; 81003; 82105; 82150; 82378; 83605; 83735; 83880; 84100; 84484; 85025; 86301; 87015; 87045; 87427; 87449; 89055; 93005; 93923; 93970; 97116; 97162; 97166; 97530; 99285; C1893; C9113; J0696; J1170; J1650; J2060; J2270; J2405; J2765; J7060; Q9967

== ENCOUNTER 2021-01-13 13:28 | Emergency (ER) | payer MEDICARE ==
[~2021-01-13] VITALS: Ht 160 cm; Wt 45.0 kg
[~2021-01-13 13:28] MED LIST changes: +DICY10CA88 PO; +HYDR-4001 MT; +HYDR-4009 PO
[2021-01-13] MEDS ORDERED: PANTOPRAZOLE SODIUM 40 MG/VIAL IV STA (14:00)
[2021-01-13] MEDS ORDERED: ONDANSETRON HCL 4MG/2ML INJ IV STA (14:00)
[2021-01-13 14:57] LABS: CLARITY URINE CLEAR (CLEAR); COLOR URINE DARK YELLOW (YELLOW); KETONES URINE NEGATIVE (NEGATIVE); LEUKOCYTE ESTERASE URINE NEGATIVE (NEGATIVE); NITRITE URINE NEGATIVE (NEGATIVE); OCCULT BLOOD URINE NEGATIVE (NEGATIVE); PH URINE 6.5 (4.5-8.0); PROTEIN URINE NEGATIVE (NEGATIVE); SPECIFIC GRAVITY URINE 1.013 (1.005-1.030); UROBILINOGEN URINE 0.2 E.U./dL (0.2-1.0)
[2021-01-13 15:36] LABS: EOSINOPHILS % 2.8 % (0.0-5.0); HEMOGLOBIN. 8.7 g/dL (12.0-16.0); LYMPHOCYTES % 22.1 % (20.0-50.0); MEAN CORPUSCULAR HEMOGLOBIN 31.4 pg (28.0-32.0); MEAN CORPUSCULAR VOLUME 90.5 fL (81.0-99.0); MEAN PLATELET VOLUME 7.8 fl (7.4-10.4); MONOCYTES % 10.9 % (2.0-8.0); NEUTROPHILS % 63.2 % (40.0-76.0); PLATELET 282 x1000/uL (130-400); RED BLOOD CELL COUNT 2.76 mill/uL (4.2-5.4)
[2021-01-13 15:41] LABS: CHLORIDE 104 mEq/L (98-107)
[2021-01-13 15:46] LABS: PROTHROMBIN TIME 11.2 sec (9.6-11.0)
[2021-01-13] MEDS ORDERED: HYDROCODONE/ACETAMINOPHEN 5/325MG TABLET PO ONE (16:30)
[2021-01-13] MEDS ORDERED: DICY10CA88 MT (19:02)
[2021-01-13 21:07] VITALS: BP 115/62
[2021-01-13] MEDS ORDERED: IOHEXOL-300 100 ML BOTTLE ONE (23:10)
== END 2021-01-13 21:00 | disposition home or self-care (01) ==
LOC: ER 13:28
DX: R10.13 Epigastric pain (principal); I11.0 Hypertensive heart disease with heart failure; I50.9 Heart failure, unspecified; E78.00 Pure hypercholesterolemia, unspecified
CPT/HCPCS: 36415; 71045; 74177; 80053; 81003; 83690; 84484; 85025; 85610; 93005; 96374; 96375; 99285; C9113; J2405; Q9967

== ENCOUNTER 2021-01-23 21:48 | Emergency (ER) | payer MEDICARE ==
[~2021-01-23] VITALS: Ht 162.6 cm; Wt 41.0 kg
[~2021-01-23 21:48] MED LIST changes: +DICY10CA88 MT
[2021-01-23] MEDS ORDERED: MORPHINE SULFATE 2 MG/ML CPJ (NOT FOR IM USE) IV ONE (22:30)
[2021-01-23] MEDS ORDERED: MORPHINE SULFATE 4 MG/ML CPJ (NOT FOR IM USE) IV PRN (22:30)
[2021-01-23 22:40] LABS: BASOPHILS % 1.2 % (0.0-2.0); EOSINOPHILS % 2.5 % (0.0-5.0); HEMATOCRIT. 32.1 % (36.0-48.0); HEMOGLOBIN. 10.8 g/dL (12.0-16.0); LYMPHOCYTES % 25.6 % (20.0-50.0); MEAN CORPUSCULAR HEMOGLOBIN 30.2 pg (28.0-32.0); MEAN CORPUSCULAR VOLUME 89.8 fL (81.0-99.0); MEAN PLATELET VOLUME 8.1 fl (7.4-10.4); MONOCYTES % 9.7 % (2.0-8.0); PLATELET 278 x1000/uL (130-400); RED BLOOD CELL COUNT 3.57 mill/uL (4.2-5.4); RED CELL DISTRIBUTION WIDTH 14.2 % (11.6-14.6)
[2021-01-23 22:42] LABS: CHLORIDE 106 mEq/L (98-107)
[2021-01-23 23:07] LABS: CLARITY URINE CLEAR (CLEAR); COLOR URINE YELLOW (YELLOW); KETONES URINE NEGATIVE (NEGATIVE); LEUKOCYTE ESTERASE URINE NEGATIVE (NEGATIVE); NITRITE URINE NEGATIVE (NEGATIVE); OCCULT BLOOD URINE NEGATIVE (NEGATIVE); PROTEIN URINE NEGATIVE (NEGATIVE); UROBILINOGEN URINE 0.2 E.U./dL (0.2-1.0)
[2021-01-24] MEDS ORDERED: MAGNESIUM/ALUMINUM HYDROXIDE/SIMETHICONE 30ML UDC PO ONE
[2021-01-24] MEDS ORDERED: VISCOUS LIDOCAINE 2% 15 ML UDC PO ONE
[2021-01-24] MEDS ORDERED: PANT40TA51 MT (00:18)
[2021-01-24] MEDS ORDERED: PANTOPRAZOLE 40MG DR TABLET PO SCH (00:30)
[2021-01-24 01:19] VITALS: BP 146/68
== END 2021-01-24 01:35 | disposition home or self-care (01) ==
LOC: ER 21:48
DX: R10.9 Unspecified abdominal pain (principal); I10 Essential (primary) hypertension; Z88.2 Allergy status to sulfonamides; Z79.899 Other long term (current) drug therapy; Z79.82 Long term (current) use of aspirin; Z86.73 Personal history of transient ischemic attack (TIA), and cerebral infarction without residual deficits
CPT/HCPCS: 36415; 71045; 74176; 80053; 81003; 83690; 83880; 84443; 84484; 85025; 93005; 96374; 96376; 99285; J2270

== ENCOUNTER 2021-01-30 16:08 | Inpatient (IN) | payer MEDICARE ==
[~2021-01-30] VITALS: Ht 157.5 cm; Wt 45.8 kg
[~2021-01-30 16:08] MED LIST changes: +PANT40TA51 MT
[2021-01-30] MEDS ORDERED: SODIUM CHLORIDE 0.9% 1000ML BAG (SEPSIS BOLUS) IV ONE (17:00)
[2021-01-30] MEDS ORDERED: ONDANSETRON HCL 4MG/2ML INJ IV ONE (17:45)
[2021-01-30] MEDS ORDERED: ACETAMINOPHEN 325MG TABLET PO ONE (17:45)
[2021-01-30 17:51] LABS: BASOPHILS % 0.9 % (0.0-2.0); HEMATOCRIT. 27.4 % (36.0-48.0); HEMOGLOBIN. 9.4 g/dL (12.0-16.0); LYMPHOCYTES % 26.9 % (20.0-50.0); MEAN CORPUSCULAR HEMOGLOBIN 30.8 pg (28.0-32.0); MEAN CORPUSCULAR VOLUME 89.3 fL (81.0-99.0); MEAN PLATELET VOLUME 8.2 fl (7.4-10.4); MONOCYTES % 10.5 % (2.0-8.0); NEUTROPHILS % 57.7 % (40.0-76.0); PLATELET 218 x1000/uL (130-400); RED BLOOD CELL COUNT 3.06 mill/uL (4.2-5.4); RED CELL DISTRIBUTION WIDTH 14.2 % (11.6-14.6)
[2021-01-30 17:58] LABS: CHLORIDE 106 mEq/L (98-107)
[2021-01-30 18:54] LABS: INR 1.1; PROTHROMBIN TIME 11.9 sec (9.6-11.0)
[2021-01-30] MEDS ORDERED: TRAMADOL 50MG TABLET PO ONE (19:00)
[2021-01-30] MEDS ORDERED: MORPHINE SULFATE 2 MG/ML CPJ (NOT FOR IM USE) IV ONE ×2 (19:15→23:30)
[2021-01-30 22:52] LABS: CLARITY URINE CLEAR (CLEAR); COLOR URINE YELLOW (YELLOW); KETONES URINE NEGATIVE (NEGATIVE); LEUKOCYTE ESTERASE URINE NEGATIVE (NEGATIVE); NITRITE URINE NEGATIVE (NEGATIVE); OCCULT BLOOD URINE NEGATIVE (NEGATIVE); PROTEIN URINE NEGATIVE (NEGATIVE); SPECIFIC GRAVITY URINE 1.007 (1.005-1.030); UROBILINOGEN URINE 0.2 E.U./dL (0.2-1.0)
[2021-01-30] MEDS ORDERED: LORAZEPAM 2MG/ML CPJ IV ONE (23:30)
[2021-01-31] MEDS ORDERED: CLONIDINE 0.1MG TABLET PO PRN (07:00)
[2021-01-31] MEDS ORDERED: DOCUSATE SODIUM 100MG CAPSULE PO PRN (07:00)
[2021-01-31] MEDS ORDERED: ACETAMINOPHEN 325MG TABLET PO PRN (07:00)
[2021-01-31] MEDS ORDERED: MAGNESIUM/ALUMINUM HYDROXIDE/SIMETHICONE 30ML UDC PO PRN (07:00)
[2021-01-31] MEDS: HYDROCODONE/ACETAMINOPHEN 5/325MG TABLET PO PRN (07:51)
[2021-01-31 08:00] VITALS: BP_SYST 168; BP_SYST 173; BP_DIAS 62; BP_DIAS 67
[2021-01-31] MEDS: AMLODIPINE 5MG TABLET PO SCH ×2 (08:56→17:40)
[2021-01-31] MEDS: OMEPRAZOLE 20MG CAPSULE EXTENDED RELEASE PO SCH (08:56)
[2021-01-31] MEDS: ASPIRIN 81MG EC TABLET PO SCH (08:56)
[2021-01-31] MEDS: CLOPIDOGREL 75MG TABLET PO SCH (08:57)
[2021-01-31] MEDS: METOPROLOL TARTRATE 25MG TABLET PO SCH ×2 (08:57→20:01)
[2021-01-31] MEDS: CITALOPRAM HYDROBROMIDE 10MG TABLET PO SCH (08:58)
[2021-01-31] MEDS: PENTOXIFYLLINE 400MG TABLET PO SCH ×3 (08:58→21:00)
[2021-01-31] MEDS: ENOXAPARIN 30MG/0.3ML SYR SUBCUT SCH (09:02)
[2021-01-31] MEDS: TRAMADOL 50MG TABLET PO PRN ×2 (09:52→18:25)
[2021-01-31 12:00] VITALS: BP 155/55
[2021-01-31] MEDS ORDERED: GABAPENTIN 300MG CAPSULE PO SCH (12:00)
[2021-01-31] MEDS: MORPHINE SULFATE 2 MG/ML CPJ (NOT FOR IM USE) IV PRN ×2 (15:05→19:57)
[2021-01-31 16:00] VITALS: BP 123/58
[2021-01-31 20:00] VITALS: BP_SYST 169; BP_SYST 189; BP_DIAS 61; BP_DIAS 64; BP_DIAS 66
[2021-01-31] MEDS: GABAPENTIN 300MG CAPSULE PO SCH (20:01)
[2021-01-31] MEDS: ATORVASTATIN CALCIUM 40MG TABLET PO SCH (20:01)
[2021-01-31] MEDS: ZOLPIDEM TARTRATE 5MG TABLET PO PRN (20:02)
[2021-01-31] MEDS: LORAZEPAM 2MG/ML CPJ IV PRN (20:28)
[2021-01-31] MEDS ORDERED: MAGNESIUM CITRATE 300ML SOLUTION PO NR (21:00)
[2021-02-01] VITALS (7 sets, daily range): BP systolic 124–161; BP diastolic 47–59
[2021-02-01] MEDS: PENTOXIFYLLINE 400MG TABLET PO SCH ×3 (06:02→21:01)
[2021-02-01] MEDS: OMEPRAZOLE 20MG CAPSULE EXTENDED RELEASE PO SCH (06:05)
[2021-02-01 06:12] LABS: PHOSPHORUS 3.2 mg/dL (2.5-4.9)
[2021-02-01 06:26] LABS: BASOPHILS % 0.8 % (0.0-2.0); EOSINOPHILS % 2.7 % (0.0-5.0); HEMATOCRIT. 26.4 % (36.0-48.0); HEMOGLOBIN. 8.8 g/dL (12.0-16.0); LYMPHOCYTES % 27.3 % (20.0-50.0); MEAN CORPUSCULAR HEMOGLOBIN 30.5 pg (28.0-32.0); MEAN CORPUSCULAR VOLUME 91.1 fL (81.0-99.0); MEAN PLATELET VOLUME 7.7 fl (7.4-10.4); MONOCYTES % 13.4 % (2.0-8.0); NEUTROPHILS % 55.8 % (40.0-76.0); PLATELET 166 x1000/uL (130-400); RED CELL DISTRIBUTION WIDTH 14.1 % (11.6-14.6)
[2021-02-01] MEDS: ASPIRIN 81MG EC TABLET PO SCH (08:31)
[2021-02-01] MEDS: METOPROLOL TARTRATE 25MG TABLET PO SCH ×2 (08:31→20:05)
[2021-02-01] MEDS: CLOPIDOGREL 75MG TABLET PO SCH (08:31)
[2021-02-01] MEDS: CITALOPRAM HYDROBROMIDE 10MG TABLET PO SCH (08:31)
[2021-02-01] MEDS: AMLODIPINE 5MG TABLET PO SCH ×2 (08:31→16:50)
[2021-02-01] MEDS: ENOXAPARIN 30MG/0.3ML SYR SUBCUT SCH (08:32)
[2021-02-01] MEDS ORDERED: METRONIDAZOLE 500MG TABLET PO SCH (14:00)
[2021-02-01] MEDS: ONDANSETRON HCL 4MG/2ML INJ IV PRN (15:01)
[2021-02-01] MEDS: KETOROLAC 15MG/ML VIAL IV PRN (15:03)
[2021-02-01] MEDS: HYDROCODONE/ACETAMINOPHEN 5/325MG TABLET PO PRN (16:49)
[2021-02-01] MEDS: TRAMADOL 50MG TABLET PO PRN (17:05)
[2021-02-01] MEDS ORDERED: MORPHINE SULFATE 2 MG/ML CPJ (NOT FOR IM USE) IV NR (19:33)
[2021-02-01] MEDS: LORAZEPAM 2MG/ML CPJ IV PRN (19:45)
[2021-02-01] MEDS: ATORVASTATIN CALCIUM 40MG TABLET PO SCH (20:05)
[2021-02-01] MEDS: ZOLPIDEM TARTRATE 5MG TABLET PO PRN (20:05)
[2021-02-01] MEDS: GABAPENTIN 300MG CAPSULE PO SCH (20:06)
[2021-02-01] MEDS: IRON SUCROSE COMPLEX 100 MG/5 ML ML IV SCH (20:09)
[2021-02-02] VITALS (9 sets, daily range): BP systolic 81–166; BP diastolic 29–59
[2021-02-02] MEDS: HYDROCODONE/ACETAMINOPHEN 5/325MG TABLET PO PRN ×3 (00:58→15:14)
[2021-02-02] MEDS: KETOROLAC 15MG/ML VIAL IV PRN ×2 (01:07→08:53)
[2021-02-02] MEDS: LORAZEPAM 2MG/ML CPJ IV PRN (02:26)
[2021-02-02] MEDS: PENTOXIFYLLINE 400MG TABLET PO SCH ×3 (05:50→21:07)
[2021-02-02] MEDS: OMEPRAZOLE 20MG CAPSULE EXTENDED RELEASE PO SCH (05:51)
[2021-02-02 06:48] LABS: HEMATOCRIT. 35.7 % (36.0-48.0); MEAN CORPUSCULAR HEMOGLOBIN 30.9 pg (28.0-32.0); MEAN CORPUSCULAR VOLUME 90.3 fL (81.0-99.0); RED BLOOD CELL COUNT 3.95 mill/uL (4.2-5.4); RED CELL DISTRIBUTION WIDTH 14.1 % (11.6-14.6)
[2021-02-02 08:37] LABS: HEMOGLOBIN. 12.2 g/dL (12.0-16.0)
[2021-02-02] MEDS: ONDANSETRON HCL 4MG/2ML INJ IV PRN ×2 (08:52→17:30)
[2021-02-02] MEDS: METOPROLOL TARTRATE 25MG TABLET PO SCH ×2 (08:53→20:52)
[2021-02-02] MEDS: ASPIRIN 81MG EC TABLET PO SCH (08:53)
[2021-02-02] MEDS: AMLODIPINE 5MG TABLET PO SCH ×2 (08:53→17:29)
[2021-02-02] MEDS: CITALOPRAM HYDROBROMIDE 10MG TABLET PO SCH (08:53)
[2021-02-02] MEDS: CLOPIDOGREL 75MG TABLET PO SCH (08:53)
[2021-02-02] MEDS: ENOXAPARIN 30MG/0.3ML SYR SUBCUT SCH (08:54)
[2021-02-02] MEDS: MORPHINE SULFATE 2 MG/ML CPJ (NOT FOR IM USE) IV PRN ×2 (12:24→14:22)
[2021-02-02] MEDS ORDERED: SODIUM CHLORIDE 0.9% 500 ML IV SCH (13:00)
[2021-02-02 13:23] LABS: PLATELET ESTIMATE NORMAL
[2021-02-02 13:26] LABS: PLATELET 154 x1000/uL (130-400)
[2021-02-02] MEDS: SODIUM CHLORIDE 0.9% 1,000 ML IV SCH (15:14)
[2021-02-02] MEDS: VANCOMYCIN HCL 1000 MG/20 ML ORAL PO SCH ×2 (17:30→23:46)
[2021-02-02] MEDS: GABAPENTIN 300MG CAPSULE PO SCH (20:52)
[2021-02-02] MEDS: IRON SUCROSE COMPLEX 100 MG/5 ML ML IV SCH (20:52)
[2021-02-02] MEDS: ATORVASTATIN CALCIUM 40MG TABLET PO SCH (20:52)
[2021-02-03] VITALS: BP 153/55
[2021-02-03] MEDS: SODIUM CHLORIDE 0.9% 1,000 ML IV SCH ×2 (01:47→15:05)
[2021-02-03] MEDS: TRAMADOL 50MG TABLET PO PRN ×2 (02:03→10:35)
[2021-02-03] MEDS: ZOLPIDEM TARTRATE 5MG TABLET PO PRN (02:03)
[2021-02-03 04:00] VITALS: BP 133/80
[2021-02-03] MEDS: PENTOXIFYLLINE 400MG TABLET PO SCH ×2 (06:03→13:58)
[2021-02-03] MEDS: VANCOMYCIN HCL 1000 MG/20 ML ORAL PO SCH ×2 (06:04→12:28)
[2021-02-03] MEDS: OMEPRAZOLE 20MG CAPSULE EXTENDED RELEASE PO SCH (06:25)
[2021-02-03] MEDS: ASPIRIN 81MG EC TABLET PO SCH (08:03)
[2021-02-03] MEDS: CITALOPRAM HYDROBROMIDE 10MG TABLET PO SCH (08:03)
[2021-02-03] MEDS: CLOPIDOGREL 75MG TABLET PO SCH (08:03)
[2021-02-03] MEDS: HYDROCODONE/ACETAMINOPHEN 5/325MG TABLET PO PRN ×2 (08:04→16:07)
[2021-02-03] MEDS: ENOXAPARIN 30MG/0.3ML SYR SUBCUT SCH (08:04)
[2021-02-03 08:05] VITALS: BP 167/60
[2021-02-03] MEDS: METOPROLOL TARTRATE 25MG TABLET PO SCH (08:17)
[2021-02-03] MEDS: AMLODIPINE 5MG TABLET PO SCH ×2 (08:18→16:07)
[2021-02-03 12:00] VITALS: BP_SYST 126; BP_SYST 132; BP_DIAS 48; BP_DIAS 52
[2021-02-03] MEDS: KETOROLAC 15MG/ML VIAL IV PRN (13:58)
[2021-02-03 16:00] VITALS: BP 178/68
[2021-02-03 16:15] VITALS: BP 178/68
[2021-02-03] MEDS ORDERED: TRAM50TA3 MT (17:51)
== END 2021-02-03 18:05 | disposition home health service (06) | DRG 371 ==
LOC: ER 16:08 → EDBEDREQ 01-31 00:01 → EDBEDREQDT 01-31 00:01 → EDBEDREQTM 01-31 00:01 → EDBEDREQSVC 01-31 00:01 → ENRESERV 01-31 04:24 → 6WST 01-31 05:29
PROVIDERS: ADMIT Family Medicine Adult Medicine; ATTEND Family Medicine Adult Medicine
DX: A04.72 Enterocolitis due to Clostridium difficile, not specified as recurrent (principal); E43 Unspecified severe protein-calorie malnutrition; N17.0 Acute kidney failure with tubular necrosis; R64 Cachexia; Z68.1 Body mass index [BMI] 19.9 or less, adult; D64.9 Anemia, unspecified; E78.00 Pure hypercholesterolemia, unspecified; E78.5 Hyperlipidemia, unspecified; E86.0 Dehydration; G89.4 Chronic pain syndrome; I15.0 Renovascular hypertension; I25.10 Atherosclerotic heart disease of native coronary artery without angina pectoris; I27.81 Cor pulmonale (chronic); I70.1 Atherosclerosis of renal artery; J44.9 Chronic obstructive pulmonary disease, unspecified; K59.09 Other constipation; M16.0 Bilateral primary osteoarthritis of hip; M47.816 Spondylosis without myelopathy or radiculopathy, lumbar region; M48.00 Spinal stenosis, site unspecified; M85.80 Other specified disorders of bone density and structure, unspecified site; R33.9 Retention of urine, unspecified; N20.0 Calculus of kidney; N32.0 Bladder-neck obstruction; N32.89 Other specified disorders of bladder; I73.9 Peripheral vascular disease, unspecified; R62.7 Adult failure to thrive; Z74.01 Bed confinement status; Z86.73 Personal history of transient ischemic attack (TIA), and cerebral infarction without residual deficits; I25.2 Old myocardial infarction; Z88.2 Allergy status to sulfonamides; R53.81 Other malaise; M50.90 Cervical disc disorder, unspecified, unspecified cervical region
CPT/HCPCS: 36415; 71045; 74176; 80048; 80053; 81003; 82962; 83605; 83735; 84100; 84145; 84484; 85025; 87493; 93005; 97110; 97162; 97166; 97530; 99285; C1893; J1650; J1885; J2060; J2270; J2405; J3370; J7030; J7040